=== PATIENT | female | born 1960 | race Caucasian/White ===

== ENCOUNTER → 2016-07-04 | Outpatient (REF) | payer OTHER ==
[~2016-07-04] MED LIST: ASPI81TA85 PO; GLYB5TAB5 PO; METF1000 PO
[2016-07-04 13:27] LABS: BASO % 0.5 % (0.0-1.0); EOS # 0.1 K/mm3 (0.0-0.50); EOS % 1.7 % (0.0-3.0); LARGE UNSTAINED CELL # 0.1 K/mm3 (0.0-0.4); LARGE UNSTAINED CELL % 1.4 % (0.0-4.0); LYMPH % 24.1 % (24.0-44.0); MEAN CORPUSCULAR HEMOGLOBIN 31.7 pg (27.0-33.0); MEAN CORPUSCULAR HGB CONC 32.6 g/dl (32.0-36.5); MEAN CORPUSCULAR VOLUME 97.3 fl (80.0-96.0); MONO # 0.6 K/mm3 (0.0-0.8); MONO % 7.5 % (0.0-5.0); NEUTROPHILS % 64.9 % (36.0-66.0); PLATELET COUNT, AUTOMATED 146 k/mm3 (150-450); RED CELL DISTRIBUTION WIDTH 12.7 % (11.5-14.5); WHITE BLOOD COUNT 7.7 K/mm3 (4.0-10.0)
[2016-07-04 13:53] LABS: ALBUMIN 3.4 GM/DL (3.2-5.2); ALBUMIN/GLOBULIN RATIO 1.13 (1.00-1.93); ALKALINE PHOSPHATASE 82 U/L (45-117); ALT/SGPT 23 U/L (12-78); ANION GAP 8 MEQ/L (8-16); AST/SGOT 10 U/L (15-37); BILIRUBIN,TOTAL 0.2 MG/DL (0.2-1.0); BLOOD UREA NITROGEN 19 MG/DL (7-18); CALCIUM LEVEL 8.2 MG/DL (8.5-10.1); CARBON DIOXIDE LEVEL 29 MEQ/L (21-32); CHLORIDE LEVEL 103 MEQ/L (98-107); CHOLESTEROL LEVEL 153 MG/DL (<200); CREATININE FOR GFR 0.77 MG/DL (0.55-1.02); FREE T4 1.05 NG/DL (0.76-1.46); GLOMERULAR FILTRATION RATE > 60.0 (>51); POTASSIUM SERUM 4.3 MEQ/L (3.5-5.1); SODIUM LEVEL 140 MEQ/L (136-145); TOTAL PROTEIN 6.4 GM/DL (6.4-8.2); TRIGLYCERIDES LEVEL 165 MG/DL (<150)
[2016-07-04 14:28] LABS: GLUCOSE, FASTING 407 MG/DL (70-105)
[2016-07-04 16:34] LABS: VITAMIN B12 LEVEL 767 PG/ML (247-911)
== END ==
LOC: M SFHCPLAZ 09:39
PROVIDERS: ATTEND Physician Assistant Medical
DX: Z72.0 Tobacco use (principal)

== ENCOUNTER → 2016-08-17 | Outpatient (REF) | payer OTHER ==
[2016-08-17 11:56] LABS: BASO % 0.6 % (0.0-1.0); EOS # 0.2 K/mm3 (0.0-0.50); EOS % 2.5 % (0.0-3.0); LARGE UNSTAINED CELL # 0.2 K/mm3 (0.0-0.4); LARGE UNSTAINED CELL % 2.7 % (0.0-4.0); LYMPH # 2.8 K/mm3 (1.5-4.5); LYMPH % 34.2 % (24.0-44.0); MEAN CORPUSCULAR HEMOGLOBIN 31.3 pg (27.0-33.0); MEAN CORPUSCULAR HGB CONC 32.6 g/dl (32.0-36.5); MEAN CORPUSCULAR VOLUME 96.1 fl (80.0-96.0); MONO # 0.5 K/mm3 (0.0-0.8); MONO % 6.9 % (0.0-5.0); NEUTROPHILS % 53.1 % (36.0-66.0); PLATELET COUNT, AUTOMATED 158 k/mm3 (150-450); RED CELL DISTRIBUTION WIDTH 12.7 % (11.5-14.5); WHITE BLOOD COUNT 7.5 K/mm3 (4.0-10.0)
[2016-08-17 12:48] LABS: ALBUMIN 3.5 GM/DL (3.2-5.2); ALBUMIN/GLOBULIN RATIO 1.09 (1.00-1.93); ALKALINE PHOSPHATASE 85 U/L (45-117); ALT/SGPT 19 U/L (12-78); ANION GAP 5 MEQ/L (8-16); AST/SGOT 12 U/L (15-37); BILIRUBIN,TOTAL 0.4 MG/DL (0.2-1.0); BLOOD UREA NITROGEN 20 MG/DL (7-18); CALCIUM LEVEL 8.9 MG/DL (8.5-10.1); CARBON DIOXIDE LEVEL 34 MEQ/L (21-32); CHLORIDE LEVEL 103 MEQ/L (98-107); CREATININE FOR GFR 0.67 MG/DL (0.55-1.02); GLOMERULAR FILTRATION RATE > 60.0 (>51); GLUCOSE, FASTING 170 MG/DL (70-105); POTASSIUM SERUM 4.7 MEQ/L (3.5-5.1); SODIUM LEVEL 142 MEQ/L (136-145); TOTAL PROTEIN 6.7 GM/DL (6.4-8.2)
== END ==
LOC: M SFHCPLAZ 09:37
PROVIDERS: ATTEND Physician Assistant Medical
DX: I10 Essential (primary) hypertension (principal); E11.8 Type 2 diabetes mellitus with unspecified complications; E55.9 Vitamin D deficiency, unspecified

== ENCOUNTER → 2016-11-21 | Outpatient (CLI) | payer OTHER ==
[2016-11-21 13:05] LABS: BASO % 0.6 % (0.0-1.0); EOS # 0.2 K/mm3 (0.0-0.50); EOS % 1.9 % (0.0-3.0); LARGE UNSTAINED CELL # 0.2 K/mm3 (0.0-0.4); LARGE UNSTAINED CELL % 1.9 % (0.0-4.0); LYMPH # 2.8 K/mm3 (1.5-4.5); LYMPH % 33.2 % (24.0-44.0); MEAN CORPUSCULAR HEMOGLOBIN 32.4 pg (27.0-33.0); MEAN CORPUSCULAR HGB CONC 33.4 g/dl (32.0-36.5); MONO # 0.6 K/mm3 (0.0-0.8); MONO % 7.2 % (0.0-5.0); NEUTROPHILS # 4.4 K/mm3 (1.8-7.7); NEUTROPHILS % 55.3 % (36.0-66.0); PLATELET COUNT, AUTOMATED 171 k/mm3 (150-450); RED CELL DISTRIBUTION WIDTH 12.7 % (11.5-14.5); WHITE BLOOD COUNT 7.9 K/mm3 (4.0-10.0)
[2016-11-21 13:37] LABS: ALBUMIN 3.6 GM/DL (3.2-5.2); ALBUMIN/GLOBULIN RATIO 1.06 (1.00-1.93); ALKALINE PHOSPHATASE 82 U/L (45-117); ALT/SGPT 25 U/L (12-78); ANION GAP 6 MEQ/L (8-16); AST/SGOT 15 U/L (15-37); BILIRUBIN,TOTAL 0.6 MG/DL (0.2-1.0); BLOOD UREA NITROGEN 19 MG/DL (7-18); CALCIUM LEVEL 9.1 MG/DL (8.5-10.1); CARBON DIOXIDE LEVEL 32 MEQ/L (21-32); CHLORIDE LEVEL 103 MEQ/L (98-107); CHOLESTEROL LEVEL 195 MG/DL (<200); CREATININE FOR GFR 0.74 MG/DL (0.55-1.02); GLOMERULAR FILTRATION RATE > 60.0 (>51); GLUCOSE, FASTING 224 MG/DL (70-105); POTASSIUM SERUM 4.4 MEQ/L (3.5-5.1); SODIUM LEVEL 141 MEQ/L (136-145); TRIGLYCERIDES LEVEL 101 MG/DL (<150)
== END ==
LOC: M WUC 09:49
PROVIDERS: ATTEND Physician Assistant Medical
DX: E11.69 Type 2 diabetes mellitus with other specified complication (principal); E55.9 Vitamin D deficiency, unspecified; I10 Essential (primary) hypertension

== ENCOUNTER → 2016-12-15 | Outpatient (REF) | payer OTHER | LOC: M SFHCPLAZ 10:52 | PROVIDERS: ATTEND Physician Assistant Medical | DX: E11.8 Type 2 diabetes mellitus with unspecified complications (principal) ==

== ENCOUNTER → 2017-03-28 | Outpatient (REF) | payer OTHER ==
[2017-03-28 13:52] LABS: ALBUMIN 3.7 GM/DL (3.2-5.2); ALBUMIN/GLOBULIN RATIO 1.03 (1.00-1.93); ALKALINE PHOSPHATASE 85 U/L (45-117); ALT/SGPT 19 U/L (12-78); ANION GAP 7 MEQ/L (8-16); AST/SGOT 7 U/L (7-37); BILIRUBIN,TOTAL 0.5 MG/DL (0.2-1.0); BLOOD UREA NITROGEN 15 MG/DL (7-18); CALCIUM LEVEL 9.3 MG/DL (8.5-10.1); CARBON DIOXIDE LEVEL 30 MEQ/L (21-32); CHLORIDE LEVEL 102 MEQ/L (98-107); CHOLESTEROL LEVEL 208 MG/DL (<200); CREATININE FOR GFR 0.73 MG/DL (0.55-1.02); GLOMERULAR FILTRATION RATE > 60.0 (>51); GLUCOSE, FASTING 305 MG/DL (70-105); POTASSIUM SERUM 4.5 MEQ/L (3.5-5.1); SODIUM LEVEL 139 MEQ/L (136-145); TOTAL PROTEIN 7.3 GM/DL (6.4-8.2); TRIGLYCERIDES LEVEL 130 MG/DL (<150)
== END ==
LOC: M SFHCPLAZ 10:57
PROVIDERS: ATTEND Physician Assistant Medical
DX: E11.8 Type 2 diabetes mellitus with unspecified complications (principal); E55.9 Vitamin D deficiency, unspecified; Z13.220 Encounter for screening for lipoid disorders

== ENCOUNTER → 2017-05-23 | Outpatient (CLI) | payer OTHER | LOC: M LRY 14:12 | DX: M79.671 Pain in right foot (principal); M25.561 Pain in right knee; M54.2 Cervicalgia; M47.816 Spondylosis without myelopathy or radiculopathy, lumbar region; M54.6 Pain in thoracic spine | CPT/HCPCS: 72052 ==

== ENCOUNTER → 2017-08-22 | Outpatient (REF) | payer OTHER ==
[2017-08-22 12:21] LABS: PTH INTACT 50.3 PG/ML (18.5-88.0); TOTAL 25(OH) VITAMIN D 35.1 NG/ML (30.0-100.0)
[2017-08-22 12:54] LABS: ALBUMIN 3.9 GM/DL (3.2-5.2); ALBUMIN/GLOBULIN RATIO 1.18 (1.00-1.93); ALKALINE PHOSPHATASE 78 U/L (45-117); ALT/SGPT 17 U/L (12-78); ANION GAP 9 MEQ/L (8-16); AST/SGOT 12 U/L (7-37); BILIRUBIN,TOTAL 0.5 MG/DL (0.2-1.0); BLOOD UREA NITROGEN 18 MG/DL (7-18); CALCIUM LEVEL 9.3 MG/DL (8.5-10.1); CARBON DIOXIDE LEVEL 28 MEQ/L (21-32); CHLORIDE LEVEL 103 MEQ/L (98-107); CHOLESTEROL LEVEL 205 MG/DL (<200); CHOLESTEROL RISK RATIO 3.306 (<5); CPK CREATINE PHOSPHOKINASE 37 U/L (26-192); CREATININE FOR GFR 0.69 MG/DL (0.55-1.30); GLOMERULAR FILTRATION RATE > 60.0 (>51); GLUCOSE, FASTING 199 MG/DL (70-100); HDL CHOLESTEROL 62 MG/DL (>40); LDL CHOLESTEROL 123.8 MG/DL (<100); NON-HDL-C 143 MG/DL; POTASSIUM SERUM 4.4 MEQ/L (3.5-5.1); SODIUM LEVEL 140 MEQ/L (136-145); TOTAL PROTEIN 7.2 GM/DL (6.4-8.2); TRIGLYCERIDES LEVEL 96 MG/DL (<150)
[2017-08-22 14:42] LABS: ESTIMATED AVERAGE GLUCOSE 214 MG/DL (60-110); HEMOGLOBIN A1c 9.1 %
== END ==
LOC: M SFHCPLAZ 09:37
DX: Z13.220 Encounter for screening for lipoid disorders (principal); E55.9 Vitamin D deficiency, unspecified; E11.8 Type 2 diabetes mellitus with unspecified complications

== ENCOUNTER → 2017-12-04 | Outpatient (REF) | payer OTHER ==
[2017-12-04 13:31] LABS: ESTIMATED AVERAGE GLUCOSE 200 MG/DL (60-110); HEMOGLOBIN A1c 8.6 %
[2017-12-04 13:35] LABS: PTH INTACT 41.4 PG/ML (18.5-88.0)
== END ==
LOC: M SFHCPLAZ 11:22
DX: E55.9 Vitamin D deficiency, unspecified (principal); E11.8 Type 2 diabetes mellitus with unspecified complications
CPT/HCPCS: 83036

== ENCOUNTER → 2017-12-13 | Outpatient (CLI) | payer OTHER | LOC: M WUC 17:40 | DX: J20.9 Acute bronchitis, unspecified (principal); R06.2 Wheezing; Z72.0 Tobacco use | CPT/HCPCS: 71046 ==

== ENCOUNTER → 2018-01-10 | Outpatient (CLI) | payer OTHER | LOC: M WHC 09:45 | DX: Z12.31 Encounter for screening mammogram for malignant neoplasm of breast (principal) | CPT/HCPCS: 77067 ==

== ENCOUNTER 2018-02-05 16:04 | Emergency (ER) | payer OTHER ==
[2018-02-05] MEDS: NORCO, ANEXSIA 5/325MG TABLET (HYDROcodone/ACETAMINOPHEN) PO (18:08)
== END 2018-02-05 18:30 | disposition home or self-care (01) ==
LOC: M ED 16:04
DX: L02.214 Cutaneous abscess of groin (principal); E11.9 Type 2 diabetes mellitus without complications; I10 Essential (primary) hypertension; E78.5 Hyperlipidemia, unspecified; F17.210 Nicotine dependence, cigarettes, uncomplicated; Z87.42 Personal history of other diseases of the female genital tract; Z88.5 Allergy status to narcotic agent; Z88.8 Allergy status to other drugs, medicaments and biological substances; Z79.84 Long term (current) use of oral hypoglycemic drugs; Z79.899 Other long term (current) drug therapy; Z79.82 Long term (current) use of aspirin
CPT/HCPCS: 10060

== ENCOUNTER → 2018-02-20 | Outpatient (REF) | payer OTHER ==
[2018-02-20 12:37] LABS: BASO # 0.1 10^3/uL (0.0-0.2); BASO % 0.7 % (0.0-1.0); EOS # 0.2 10^3/uL (0.0-0.50); EOS % 1.9 % (0.0-3.0); HEMATOCRIT 45.8 % (36.0-47.0); HEMOGLOBIN 15.1 g/dl (12.0-15.5); IMMATURE GRANULOCYTE % 0.6 % (0-3.0); LYMPH # 3.1 10^3/uL (1.5-4.5); LYMPH % 31.3 % (24.0-44.0); MEAN CORPUSCULAR HEMOGLOBIN 32.1 pg (27.0-33.0); MEAN CORPUSCULAR VOLUME 97.2 fl (80.0-96.0); MONO % 9.8 % (0.0-5.0); NEUTROPHILS # 5.6 10^3/uL (1.8-7.7); NEUTROPHILS % 55.7 % (36.0-66.0); PLATELET COUNT, AUTOMATED 200 10^3/uL (150-450); RED BLOOD COUNT 4.71 10^6/uL (4.00-5.40); RED CELL DISTRIBUTION WIDTH 12.4 % (11.5-14.5)
[2018-02-20 13:08] LABS: ERYTHROCYTE SEDIMENTATION RATE 8 mm/hr (0-30)
[2018-02-20 20:11] LABS: ALBUMIN 3.6 GM/DL (3.2-5.2); ALBUMIN/GLOBULIN RATIO 1.09 (1.00-1.93); ALKALINE PHOSPHATASE 77 U/L (45-117); ALT/SGPT 20 U/L (12-78); ANION GAP 11 MEQ/L (8-16); AST/SGOT 12 U/L (7-37); BILIRUBIN,TOTAL 0.4 MG/DL (0.2-1.0); BLOOD UREA NITROGEN 24 MG/DL (7-18); C REACTIVE PROTEIN QUANTITATIV < 0.30 MG/DL (0.00-0.30); CALCIUM LEVEL 9.1 MG/DL (8.5-10.1); CARBON DIOXIDE LEVEL 26 MEQ/L (21-32); CHLORIDE LEVEL 102 MEQ/L (98-107); CREATININE FOR GFR 0.94 MG/DL (0.55-1.30); GLOMERULAR FILTRATION RATE > 60.0 (>51); GLUCOSE, FASTING 247 MG/DL (70-100); POTASSIUM SERUM 4.9 MEQ/L (3.5-5.1); SODIUM LEVEL 139 MEQ/L (136-145); TOTAL PROTEIN 6.9 GM/DL (6.4-8.2)
[2018-02-20 23:59] LABS: ESTIMATED AVERAGE GLUCOSE 200 MG/DL (60-110); HEMOGLOBIN A1c 8.6 %
== END ==
LOC: M SFHCPLAZ 10:51
DX: E11.8 Type 2 diabetes mellitus with unspecified complications (principal); L02.91 Cutaneous abscess, unspecified
CPT/HCPCS: 80053

== ENCOUNTER 2018-05-03 20:51 | Emergency (ER) | payer OTHER ==
[~2018-05-03] VITALS: Ht 165.1 cm; Wt 90.9 kg
[~2018-05-03 20:51] MED LIST changes: +BACT800T5 PO; +NORCOTAB PO
[2018-05-03] MEDS ORDERED: LISI-538 (21:07)
[2018-05-03] MEDS ORDERED: AMLO5TAB6 (21:07)
[2018-05-03] MEDS ORDERED: EZET10TA (21:07)
[2018-05-03] MEDS ORDERED: IPRATROPIUM 0.5MG/ALBUTEROL 2.5MG INH SOL UD 3ML (DUONEB)(J7620) NEB PRN (21:15)
[2018-05-03] MEDS ORDERED: MORPHINE 2 MG/ML 1ML SYRINGE (J2270) IV ONE (21:15)
[2018-05-03] MEDS ORDERED: GI COCKTAIL 50ML BTL(HYOSCYAMINE/MAALOX/LIDOCAINE VISCOUS)(1:3:1) PO ONE (21:15)
[2018-05-03 21:21] LABS: BASO # 0.1 10^3/uL (0.0-0.2); BASO % 0.5 % (0.0-1.0); EOS # 0.2 10^3/uL (0.0-0.50); EOS % 2.2 % (0.0-3.0); HEMATOCRIT 44.3 % (36.0-47.0); HEMOGLOBIN 15.1 g/dl (12.0-15.5); LYMPH # 2.4 10^3/uL (1.5-4.5); LYMPH % 25.2 % (24.0-44.0); MEAN CORPUSCULAR HEMOGLOBIN 31.6 pg (27.0-33.0); MEAN CORPUSCULAR HGB CONC 34.1 g/dl (32.0-36.5); MEAN CORPUSCULAR VOLUME 92.7 fl (80.0-96.0); MONO # 1.1 10^3/uL (0.0-0.8); NEUTROPHILS # 5.7 10^3/uL (1.8-7.7); NEUTROPHILS % 59.5 % (36.0-66.0); PLATELET COUNT, AUTOMATED 183 10^3/uL (150-450); RED BLOOD COUNT 4.78 10^6/uL (4.00-5.40); WHITE BLOOD COUNT 9.5 10^3/uL (4.0-10.0)
[2018-05-03 22:15] LABS: ALT/SGPT 21 U/L (12-78); BILIRUBIN,DIRECT < 0.1 MG/DL (0.0-0.2); BILIRUBIN,TOTAL 0.4 MG/DL (0.2-1.0); BLOOD UREA NITROGEN 21 MG/DL (7-18); CALCIUM LEVEL 8.5 MG/DL (8.5-10.1); CARBON DIOXIDE LEVEL 29 MEQ/L (21-32); CHLORIDE LEVEL 101 MEQ/L (98-107); CPK CREATINE PHOSPHOKINASE 76 U/L (26-192); CREATININE FOR GFR 0.75 MG/DL (0.55-1.30); GLOMERULAR FILTRATION RATE > 60.0 (>51); GLUCOSE, FASTING 342 MG/DL (70-100); LIPASE 4960 U/L (73-393); MB/CK RELATIVE INDEX 2.63 (< OR =4); POTASSIUM SERUM 3.8 MEQ/L (3.5-5.1); SODIUM LEVEL 136 MEQ/L (136-145); TOTAL PROTEIN 6.5 GM/DL (6.4-8.2); TROPONIN I < 0.02 NG/ML (< 0.10)
--- NOTE | 2018-05-03 22:45 | REP ---
Clinical: Chest pain and cough . Comparison: 12/13/2017 . Findings: The mediastinum and cardiac silhouette are stable and within normal limits for portable technique. The lung winston are clear without acute consolidation, effusion, or pneumothorax. Skeletal structures are intact. Impression: No acute cardiopulmonary process appreciated. Electronically Signed by Tyrell Contreras MD 05/03/2018 10:37 P
--- NOTE | 2018-05-03 23:31 | REPVR ---
EXAM: CT Abdomen and Pelvis Without Contrast EXAM DATE/TIME: 05/03/2018 10:27 PM CLINICAL HISTORY: 57 years old, female; Pain; Abdominal pain; Generalized; Additional info: Abdominal pain and elevated lipase TECHNIQUE: Axial computed tomography images of the abdomen and pelvis without contrast. All CT scans at this facility use at least one of these dose optimization techniques: automated exposure control; mA and/or kV adjustment per patient size (includes targeted exams where dose is matched to clinical indication); or iterative reconstruction. Coronal and sagittal reformatted images were created and reviewed. COMPARISON: CT ABD PELVIS WITH CONTRAST 10/17/2014 2:52 PM FINDINGS: Lower thorax: Moderate coronary artery calcification. ABDOMEN: Liver: Normal. No mass. Gallbladder and bile ducts: Status post cholecystectomy. No biliary ductal dilatation. Pancreas: Normal. No ductal dilation. Spleen: Normal. No splenomegaly. Adrenals: Normal. No mass. Kidneys and ureters: Normal. No hydronephrosis. Stomach and bowel: No obstruction. No mucosal thickening. Negative for colonic diverticulitis. Copious stool throughout the colon. Diverticulosis of the sigmoid colon and left colon. No evidence of diverticulitis. Appendix: Appendix is normal. PELVIS: Bladder: Unremarkable as visualized. Reproductive: Uterus is normal. ABDOMEN and PELVIS: Intraperitoneal space: Normal. No free air. No significant fluid collection. Bones/joints: Moderate degenerative spine. No acute fracture. Soft tissues: Unremarkable. Vasculature: Moderate calcified atherosclerotic disease. No aortic aneurysm. Lymph nodes: Normal. No enlarged lymph nodes. IMPRESSION: Pancreas is unremarkable. Status post cholecystectomy. Colonic diverticulosis without diverticulitis. Additional findings as described. Electronically signed by: Ailyn Marion On 05/03/2018 23:31:26 PM
[2018-05-03 23:36] VITALS: BP 142/65
[2018-05-03] MEDS ORDERED: OMEP10CASR PO (23:41)
--- NOTE | 2018-05-04 09:24 | ECGEPIP ---
Stationary ECG Study [facility] - ED Test Date: 2018-05-03 Pat Name: ELIJAH ESTRADA Department: Room: - Gender: F Specialist Physician: : 1960 Requested By: ELIE Gan Order Number: [id number] Reading MD: Sharri Hodgson Measurements Intervals [place] Rate: 97 P: 58 SD: 257 QRS: 22 QRSD: 120 T: 52 QT: 446 QTc: 568 Interpretive Statements SINUS RHYTHM WITH FIRST DEGREE AV BLOCK POSSIBLE LATERAL MYOCARDIAL INFARCTION, OF INDETERMINATE AGE INFERIOR MYOCARDIAL INFARCTION, OF INDETERMINATE AGE SIMILAR 10/17/14 Electronically Signed On 05-04-2018 9:24:05 EST by Sharri Hodgson
== END 2018-05-03 23:49 | disposition home or self-care (01) ==
LOC: EDBD 20:51 → M ED 20:51
DX: K21.9 Gastro-esophageal reflux disease without esophagitis (principal); I44.0 Atrioventricular block, first degree; I25.10 Atherosclerotic heart disease of native coronary artery without angina pectoris; I25.2 Old myocardial infarction; E11.9 Type 2 diabetes mellitus without complications; I10 Essential (primary) hypertension; E78.5 Hyperlipidemia, unspecified; Z95.5 Presence of coronary angioplasty implant and graft; Z72.0 Tobacco use; K57.32 Diverticulitis of large intestine without perforation or abscess without bleeding; Z79.82 Long term (current) use of aspirin; Z79.84 Long term (current) use of oral hypoglycemic drugs; Z79.899 Other long term (current) drug therapy; Z88.8 Allergy status to other drugs, medicaments and biological substances; Z88.5 Allergy status to narcotic agent
CPT/HCPCS: 71045; 74176; 80048; 80076; 82550; 82553; 83690; 85025; 93005; 93041; 94640; 94760; 96374; 99285; J2270

== ENCOUNTER → 2018-05-07 | Outpatient (REF) | payer OTHER ==
[~2018-05-07] MED LIST changes: +AMLO5TAB6; +EZET10TA; +LISI-538; +OMEP10CASR PO
[2018-05-07 13:18] LABS: ALBUMIN 3.7 GM/DL (3.2-5.2); ALT/SGPT 24 U/L (12-78); AMYLASE 63 U/L (25-115); BILIRUBIN,TOTAL 0.5 MG/DL (0.2-1.0); BLOOD UREA NITROGEN 21 MG/DL (7-18); CALCIUM LEVEL 9.1 MG/DL (8.5-10.1); CARBON DIOXIDE LEVEL 25 MEQ/L (21-32); CHLORIDE LEVEL 102 MEQ/L (98-107); CHOLESTEROL LEVEL 162 MG/DL (<200); CREATININE FOR GFR 0.77 MG/DL (0.55-1.30); GLOMERULAR FILTRATION RATE > 60.0 (>51); GLUCOSE, FASTING 311 MG/DL (70-100); HDL CHOLESTEROL 60 MG/DL (>40); LDL CHOLESTEROL 79 MG/DL (<100); LIPASE 572 U/L (73-393); NON-HDL-C 102 MG/DL; POTASSIUM SERUM 4.6 MEQ/L (3.5-5.1); SODIUM LEVEL 135 MEQ/L (136-145); TRIGLYCERIDES LEVEL 116 MG/DL (<150)
[2018-05-07 13:20] LABS: BASO # 0.1 10^3/uL (0.0-0.2); BASO % 0.8 % (0.0-1.0); EOS # 0.1 10^3/uL (0.0-0.50); EOS % 1.2 % (0.0-3.0); HEMATOCRIT 53.1 % (36.0-47.0); HEMOGLOBIN 17.8 g/dl (12.0-15.5); LYMPH # 2.3 10^3/uL (1.5-4.5); LYMPH % 27.4 % (24.0-44.0); MEAN CORPUSCULAR HEMOGLOBIN 31.2 pg (27.0-33.0); MEAN CORPUSCULAR HGB CONC 33.5 g/dl (32.0-36.5); MEAN CORPUSCULAR VOLUME 93.2 fl (80.0-96.0); MONO # 0.8 10^3/uL (0.0-0.8); MONO % 9.3 % (0.0-5.0); NEUTROPHILS # 5.1 10^3/uL (1.8-7.7); NEUTROPHILS % 60.7 % (36.0-66.0); PLATELET COUNT, AUTOMATED 209 10^3/uL (150-450); WHITE BLOOD COUNT 8.4 10^3/uL (4.0-10.0)
[2018-05-07 14:05] LABS: HEMOGLOBIN A1c 10.4 %
== END ==
LOC: M SFHCPLAZ 11:47
PROVIDERS: ATTEND Physician Assistant Medical
DX: E11.8 Type 2 diabetes mellitus with unspecified complications (principal); K85.90 Acute pancreatitis without necrosis or infection, unspecified; E78.5 Hyperlipidemia, unspecified

== ENCOUNTER 2018-07-23 06:10 | Emergency (ER) | payer OTHER ==
[~2018-07-23] VITALS: Ht 165.1 cm; Wt 90.9 kg
[~2018-07-23 06:10] MED LIST changes: +HYDR-3715 PO; -NORCOTAB PO
[2018-07-23] MEDS ORDERED: EZET10TA PO (06:21)
[2018-07-23 07:23] LABS: BASO # 0.1 10^3/uL (0.0-0.2); BASO % 0.5 % (0.0-1.0); EOS # 0.1 10^3/uL (0.0-0.50); EOS % 1.2 % (0.0-3.0); HEMATOCRIT 48.8 % (36.0-47.0); HEMOGLOBIN 15.7 g/dl (12.0-15.5); LYMPH # 1.8 10^3/uL (1.5-4.5); LYMPH % 18.1 % (24.0-44.0); MEAN CORPUSCULAR HEMOGLOBIN 31.3 pg (27.0-33.0); MEAN CORPUSCULAR HGB CONC 32.2 g/dl (32.0-36.5); MEAN CORPUSCULAR VOLUME 97.4 fl (80.0-96.0); MONO # 0.7 10^3/uL (0.0-0.8); MONO % 6.8 % (0.0-5.0); NEUTROPHILS # 7.4 10^3/uL (1.8-7.7); NEUTROPHILS % 72.8 % (36.0-66.0); PLATELET COUNT, AUTOMATED 161 10^3/uL (150-450); RED BLOOD COUNT 5.01 10^6/uL (4.00-5.40); WHITE BLOOD COUNT 10.1 10^3/uL (4.0-10.0)
[2018-07-23 07:57] LABS: ALBUMIN 3.3 GM/DL (3.2-5.2); ALT/SGPT 18 U/L (12-78); BILIRUBIN,DIRECT < 0.1 MG/DL (0.0-0.2); BILIRUBIN,TOTAL 0.3 MG/DL (0.2-1.0); BLOOD UREA NITROGEN 20 MG/DL (7-18); CALCIUM LEVEL 8.3 MG/DL (8.5-10.1); CARBON DIOXIDE LEVEL 30 MEQ/L (21-32); CHLORIDE LEVEL 107 MEQ/L (98-107); CREATININE FOR GFR 0.68 MG/DL (0.55-1.30); GLOMERULAR FILTRATION RATE > 60.0 (>51); GLUCOSE, FASTING 189 MG/DL (70-100); POTASSIUM SERUM 4.8 MEQ/L (3.5-5.1); SODIUM LEVEL 141 MEQ/L (136-145); TOTAL PROTEIN 6.4 GM/DL (6.4-8.2)
[2018-07-23] MEDS ORDERED: KETOROLAC 30 MG/ML VIAL (J1885) IV ONE (08:00)
--- NOTE | 2018-07-23 08:15 | REP ---
Duplex extremity venous ultrasound: Bilateral lower extremities. History: Rule out DVT. Findings: The deep veins are anechoic and fully compressible from the groin to the popliteal fossa in the left and right lower extremity. Color flow imaging is homogeneous. Spectral Doppler interrogation demonstrates intact respiratory variation in flow and normal manual augmentation of flow. There is no evidence of deep vein thrombosis. Impression: Negative bilateral lower extremity duplex venous ultrasound. No evidence of deep vein thrombosis. Electronically Signed by Carlos Shepherd MD 07/23/2018 08:07 A
[2018-07-23 09:00] VITALS: BP 123/64
[2018-07-23] MEDS ORDERED: NAPR-885 PO (09:12)
== END 2018-07-23 09:27 | disposition home or self-care (01) ==
LOC: M ED 06:10
DX: M79.604 Pain in right leg (principal); Z86.718 Personal history of other venous thrombosis and embolism; Z95.820 Peripheral vascular angioplasty status with implants and grafts; E11.9 Type 2 diabetes mellitus without complications; I11.9 Hypertensive heart disease without heart failure; I25.10 Atherosclerotic heart disease of native coronary artery without angina pectoris; E78.5 Hyperlipidemia, unspecified; J44.9 Chronic obstructive pulmonary disease, unspecified; Z95.5 Presence of coronary angioplasty implant and graft; F17.210 Nicotine dependence, cigarettes, uncomplicated; Z88.8 Allergy status to other drugs, medicaments and biological substances; Z88.5 Allergy status to narcotic agent; Z79.899 Other long term (current) drug therapy; Z79.84 Long term (current) use of oral hypoglycemic drugs; Z79.82 Long term (current) use of aspirin
CPT/HCPCS: 80048; 80076; 85025; 93041; 93971; 94760; 96374; 99284; J1885

== ENCOUNTER → 2018-09-05 | Outpatient (REF) | payer OTHER ==
[~2018-09-05] MED LIST changes: +EZET10TA PO; +NAPR-885 PO
[2018-09-05 13:03] LABS: BASO % 0.4 % (0.0-1.0); EOS # 0.2 10^3/uL (0.0-0.50); HEMATOCRIT 51.5 % (36.0-47.0); HEMOGLOBIN 16.9 g/dl (12.0-15.5); LYMPH # 2.4 10^3/uL (1.5-4.5); LYMPH % 31.7 % (24.0-44.0); MEAN CORPUSCULAR HEMOGLOBIN 31.4 pg (27.0-33.0); MEAN CORPUSCULAR HGB CONC 32.8 g/dl (32.0-36.5); MEAN CORPUSCULAR VOLUME 95.7 fl (80.0-96.0); MONO # 0.7 10^3/uL (0.0-0.8); NEUTROPHILS # 4.3 10^3/uL (1.8-7.7); NEUTROPHILS % 56.4 % (36.0-66.0); PLATELET COUNT, AUTOMATED 179 10^3/uL (150-450); RED BLOOD COUNT 5.38 10^6/uL (4.00-5.40); WHITE BLOOD COUNT 7.6 10^3/uL (4.0-10.0)
[2018-09-05 13:53] LABS: ALBUMIN 3.8 GM/DL (3.2-5.2); ALT/SGPT 26 U/L (12-78); BILIRUBIN,TOTAL 0.3 MG/DL (0.2-1.0); BLOOD UREA NITROGEN 20 MG/DL (7-18); CALCIUM LEVEL 8.8 MG/DL (8.5-10.1); CARBON DIOXIDE LEVEL 30 MEQ/L (21-32); CHLORIDE LEVEL 105 MEQ/L (98-107); CREATININE FOR GFR 0.74 MG/DL (0.55-1.30); GLOMERULAR FILTRATION RATE > 60.0 (>51); GLUCOSE, FASTING 133 MG/DL (70-100); LIPASE 214 U/L (73-393); POTASSIUM SERUM 4.4 MEQ/L (3.5-5.1); SODIUM LEVEL 138 MEQ/L (136-145); TOTAL PROTEIN 6.8 GM/DL (6.4-8.2)
[2018-09-05 17:20] LABS: HEMOGLOBIN A1c 7.7 %
== END ==
LOC: M SFHCPLAZ 09:11
PROVIDERS: ATTEND Physician Assistant Medical
DX: E11.8 Type 2 diabetes mellitus with unspecified complications (principal); K85.90 Acute pancreatitis without necrosis or infection, unspecified; I10 Essential (primary) hypertension

== ENCOUNTER 2018-12-06 07:38 | Day surgery (SDC) | payer OTHER ==
[~2018-12-06] VITALS: Ht 165.1 cm; Wt 98.9 kg
[~2018-12-06 07:38] MED LIST changes: -AMLO5TAB6; +AMLO5TAB6 PO; +ASPI81TA26 PO; +BASA100I SC; -EZET10TA; -EZET10TA PO; +EZET10TA21; +EZET10TA21 PO; +GLIP10TA6 PO; +LIDOCAINE 2% INJ 100 MG/5 ML SDV (FOR ANES.) As Ordered ONE; +LISI40TA; +METF10004 PO; +NS 1,000 ML IV ONE; +PROPOFOL 200 MG/20 ML VIAL As Ordered ONE; +VENL150C43; +VENL75CA47 PO
--- NOTE | 2018-12-06 09:11 | ROOR ---
Patient Name: Malinda Parra Procedure Date: 12/06/2018 8:41 AM Date of : 1960 Age: 58 Room: [facility] Gender: Female Note Status: Finalized Procedure: Colonoscopy Indications: Change in bowel habits Providers: Matt DE LUNA MD Referring MD: Lauren ALEJANDRE Requesting Provider: Medicines: Monitored Anesthesia Care Complications: No immediate complications. Procedure: Pre-Anesthesia Assessment: - The heart rate, respiratory rate, oxygen saturations, blood pressure, adequacy of pulmonary ventilation, and response to care were monitored throughout the procedure. The Colonoscope was introduced through the anus and advanced to the terminal ileum, with identification of the appendiceal orifice and IC valve. The colonoscopy was performed without difficulty. The patient tolerated the procedure well. The quality of the bowel preparation was fair. Findings: The perianal and digital rectal examinations were normal. Three sessile polyps were found in the sigmoid colon. The polyps were 3 to 5 mm in size. These polyps were removed with a cold snare. Resection and retrieval were complete. Multiple medium-mouthed diverticula were found in the sigmoid colon. There was evidence of diverticular spasm. The exam was otherwise without abnormality. Impression: - Preparation of the colon was fair. - Three 3 to 5 mm polyps in the sigmoid colon, removed with a cold snare. Resected and retrieved. - Moderate diverticulosis in the sigmoid colon. - Moderate internal hemorrhoids. - The examination was otherwise normal. Recommendation: - Repeat colonoscopy in 2 years because the bowel preparation was fair/suboptimal. - Use fiber, for example Citrucel, Fibercon, Konsyl or Metamucil. Matt De Luna MD Matt DE LUNA MD 12/06/2018 9:11:20 AM Electronically signed by Matt DE LUNA MD Number of Addenda: 0 Note Initiated On: 12/06/2018 8:41 AM Estimated Blood Loss: Estimated blood loss: none.
[2018-12-06 09:30] VITALS: BP 126/73
== END 2018-12-06 09:36 | disposition home or self-care (01) ==
LOC: M OPP 07:38
PROVIDERS: ATTEND Internal Medicine Gastroenterology
DX: R19.4 Change in bowel habit (principal); D12.5 Benign neoplasm of sigmoid colon; K57.30 Diverticulosis of large intestine without perforation or abscess without bleeding; K64.8 Other hemorrhoids; Z95.5 Presence of coronary angioplasty implant and graft; R00.8 Other abnormalities of heart beat; I25.10 Atherosclerotic heart disease of native coronary artery without angina pectoris; I25.2 Old myocardial infarction; I10 Essential (primary) hypertension; E78.5 Hyperlipidemia, unspecified; E11.9 Type 2 diabetes mellitus without complications; Z78.0 Asymptomatic menopausal state; F17.200 Nicotine dependence, unspecified, uncomplicated; Z88.8 Allergy status to other drugs, medicaments and biological substances; Z88.5 Allergy status to narcotic agent; Z79.82 Long term (current) use of aspirin; Z79.899 Other long term (current) drug therapy; Z79.4 Long term (current) use of insulin

== ENCOUNTER → 2018-12-18 | Outpatient (REF) | payer OTHER ==
[~2018-12-18] MED LIST changes: -LIDOCAINE 2% INJ 100 MG/5 ML SDV (FOR ANES.) As Ordered ONE; -NS 1,000 ML IV ONE; -PROPOFOL 200 MG/20 ML VIAL As Ordered ONE
[2018-12-18 17:16] LABS: BASO # 0.1 10^3/uL (0.0-0.2); BASO % 0.6 % (0.0-1.0); EOS # 0.2 10^3/uL (0.0-0.50); HEMATOCRIT 47.9 % (36.0-47.0); HEMOGLOBIN 15.9 g/dl (12.0-15.5); LYMPH # 1.9 10^3/uL (1.5-4.5); LYMPH % 24.3 % (24.0-44.0); MEAN CORPUSCULAR HEMOGLOBIN 31.7 pg (27.0-33.0); MEAN CORPUSCULAR HGB CONC 33.2 g/dl (32.0-36.5); MEAN CORPUSCULAR VOLUME 95.4 fl (80.0-96.0); MONO % 12.8 % (0.0-5.0); NEUTROPHILS # 4.7 10^3/uL (1.8-7.7); NEUTROPHILS % 59.8 % (36.0-66.0); PLATELET COUNT, AUTOMATED 169 10^3/uL (150-450); RED BLOOD COUNT 5.02 10^6/uL (4.00-5.40); WHITE BLOOD COUNT 7.8 10^3/uL (4.0-10.0)
[2018-12-18 17:34] LABS: INR 0.96; PROTHROMBIN TIME 12.5 SECONDS (11.8-14.0)
[2018-12-18 17:35] LABS: PARTIAL THROMBOPLASTIN TIME 26.9 SECONDS (25.0-38.4)
[2018-12-18 17:38] LABS: HEMOGLOBIN A1c 8.4 %
[2018-12-18 18:42] LABS: ALBUMIN 3.4 GM/DL (3.2-5.2); ALT/SGPT 19 U/L (12-78); BILIRUBIN,TOTAL 0.2 MG/DL (0.2-1.0); BLOOD UREA NITROGEN 25 MG/DL (7-18); CALCIUM LEVEL 8.7 MG/DL (8.5-10.1); CARBON DIOXIDE LEVEL 33 MEQ/L (21-32); CHLORIDE LEVEL 102 MEQ/L (98-107); CREATININE FOR GFR 0.91 MG/DL (0.55-1.30); GLOMERULAR FILTRATION RATE > 60.0 (>51); GLUCOSE, FASTING 460 MG/DL (70-100); POTASSIUM SERUM 4.6 MEQ/L (3.5-5.1); SODIUM LEVEL 139 MEQ/L (136-145); TOTAL PROTEIN 6.3 GM/DL (6.4-8.2)
== END ==
LOC: M SFHCPLAZ 15:18
PROVIDERS: ATTEND Physician Assistant Medical
DX: Z01.818 Encounter for other preprocedural examination (principal); E11.8 Type 2 diabetes mellitus with unspecified complications; I10 Essential (primary) hypertension

== ENCOUNTER → 2018-12-20 | Outpatient (CLI) | payer OTHER ==
--- NOTE | 2018-12-20 11:03 | REP ---
Bilateral lower extremity arterial Doppler ultrasound: History: Chronic bilateral lower extremity pain. The patient provides history of prior bilateral stents although she is uncertain of where the would be located. Findings: Severe plaquing is observed bilaterally. The right superficial femoral artery is occluded proximally with distal reread constitution. There is monophasic wave form morphology throughout the right lower extremity. The left proximal superficial femoral artery appears to contain a stent. The proximal to mid segment of the left superficial femoral artery is occluded with collateral reconstitution. The posterior tibial artery is occluded distally on the left. Monophasic waveforms are noted throughout the left lower extremity as well. Ankle brachial indices are measured at 0.8 on the right and 0.8 on the left. Right lower extremity arterial Doppler velocity chart: CF A 73 cm/S Profunda 90 Proximal SFA occluded Mid SFA 56 Distal SFA 39 Popliteal 33 Proximal AT A 22 Tibioperoneal trunk 33 Proximal DEBUG TECHNICIAN 38 Distal DEBUG TECHNICIAN 38 Distal AT A 50 Left lower extremity arterial Doppler velocity chart: CF A 122 cm/S Profunda 56 Proximal SFA occluded Mid SFA occluded Distal SFA 35 Popliteal 28 Proximal AT A 18 Tibioperoneal trunk 29 Proximal DEBUG TECHNICIAN 19 Distal DEBUG TECHNICIAN occluded Distal AT A 35 Electronically Signed by Carlos Shepherd MD 12/20/2018 10:54 A
== END ==
LOC: M RAD 08:44
PROVIDERS: ATTEND Physician Assistant Medical
DX: E11.8 Type 2 diabetes mellitus with unspecified complications (principal); I74.3 Embolism and thrombosis of arteries of the lower extremities

== ENCOUNTER → 2019-02-06 | Outpatient (REF) | payer OTHER ==
[2019-02-06 13:38] LABS: HEMOGLOBIN A1c 8.3 %
[2019-02-06 14:07] LABS: ALBUMIN 3.6 GM/DL (3.2-5.2); ALT/SGPT 22 U/L (12-78); BILIRUBIN,TOTAL 0.8 MG/DL (0.2-1.0); BLOOD UREA NITROGEN 24 MG/DL (7-18); CALCIUM LEVEL 8.9 MG/DL (8.5-10.1); CARBON DIOXIDE LEVEL 31 MEQ/L (21-32); CHLORIDE LEVEL 101 MEQ/L (98-107); GLOMERULAR FILTRATION RATE > 60.0 (>51); GLUCOSE, FASTING 334 MG/DL (70-100); POTASSIUM SERUM 4.5 MEQ/L (3.5-5.1); SODIUM LEVEL 139 MEQ/L (136-145); TOTAL PROTEIN 6.6 GM/DL (6.4-8.2); VITAMIN B12 LEVEL 553 PG/ML (247-911)
== END ==
LOC: M SFHCPLAZ 11:45
PROVIDERS: ATTEND Physician Assistant Medical
DX: E11.8 Type 2 diabetes mellitus with unspecified complications (principal)

== ENCOUNTER 2019-05-21 10:42 | Emergency (ER) | payer OTHER ==
[~2019-05-21] VITALS: Ht 162.6 cm; Wt 102.4 kg
[2019-05-21] MEDS ORDERED: ADME100I SC (11:03)
[2019-05-21] MEDS ORDERED: VENL1TAB35 PO (11:03)
[2019-05-21 11:18] LABS: BASO # 0.1 10^3/uL (0.0-0.2); BASO % 0.8 % (0.0-1.0); EOS # 0.2 10^3/uL (0.0-0.5); EOS % 2.4 % (0.0-3.0); HEMATOCRIT 51.8 % (36.0-47.0); HEMOGLOBIN 16.5 g/dl (12.0-15.5); LYMPH # 1.8 10^3/uL (1.5-5.0); LYMPH % 29.3 % (24.0-44.0); MEAN CORPUSCULAR HEMOGLOBIN 30.3 pg (27.0-33.0); MEAN CORPUSCULAR HGB CONC 31.9 g/dl (32.0-36.5); MEAN CORPUSCULAR VOLUME 95.2 fl (80.0-96.0); MONO # 0.7 10^3/uL (0.0-0.8); MONO % 11.3 % (0.0-5.0); NEUTROPHILS # 3.5 10^3/uL (1.5-8.5); NEUTROPHILS % 55.9 % (36.0-66.0); PLATELET COUNT, AUTOMATED 173 10^3/uL (150-450); RED BLOOD COUNT 5.44 10^6/uL (4.00-5.40); WHITE BLOOD COUNT 6.2 10^3/uL (4.0-10.0)
--- NOTE | 2019-05-21 11:34 | REP ---
Portable chest, 11:39 a.m., single AP view with the patient upright: Comparison is 05/03/2018. The lung winston are clear. The cardiac size is normal. The alisha, mediastinum, and skeletal structures are unremarkable. Impression: Negative portable chest. There is no interval change. Electronically Signed by Cipriano Hassan MD 05/21/2019 11:25 A
[2019-05-21 12:00] LABS: BLOOD UREA NITROGEN 13 MG/DL (7-18); CALCIUM LEVEL 8.8 MG/DL (8.5-10.1); CARBON DIOXIDE LEVEL 33 MEQ/L (21-32); CHLORIDE LEVEL 102 MEQ/L (98-107); CK-MB VALUE MASS 2.1 NG/ML (<3.6); CPK CREATINE PHOSPHOKINASE 54 U/L (26-192); CREATININE FOR GFR 0.73 MG/DL (0.55-1.30); GLOMERULAR FILTRATION RATE > 60.0 (>51); GLUCOSE, FASTING 194 MG/DL (70-100); MB/CK RELATIVE INDEX 3.89 (< OR =4); POTASSIUM SERUM 4.3 MEQ/L (3.5-5.1); SODIUM LEVEL 138 MEQ/L (136-145); TROPONIN I < 0.02 NG/ML (< 0.10)
[2019-05-21 12:30] LABS: ALBUMIN 3.8 GM/DL (3.2-5.2); ALT/SGPT 21 U/L (12-78); BILIRUBIN,DIRECT 0.1 MG/DL (0.0-0.2); BILIRUBIN,TOTAL 0.5 MG/DL (0.2-1.0); LIPASE 148 U/L (73-393)
[2019-05-21 14:36] LABS: CK-MB VALUE MASS 1.7 NG/ML (<3.6); CPK CREATINE PHOSPHOKINASE 46 U/L (26-192); TROPONIN I < 0.02 NG/ML (< 0.10)
[2019-05-21 14:46] VITALS: BP 156/74
--- NOTE | 2019-05-21 20:56 | ECGEPIP ---
[facility] - ED Test Date: 2019-05-21 Pat Name: ELIJAH ESTRADA Department: Room: - Gender: Female Cpht: shaina : 1960 Requested By: Yohannes Bishop Order Number: [id number] Reading MD: Yohannes Sparks Measurements Intervals [place] Rate: 90 P: 44 ME: 236 QRS: 14 QRSD: 101 T: -19 QT: 368 QTc: 452 Interpretive Statements SINUS RHYTHM WITH FIRST DEGREE AV BLOCK POSSIBLE LEFT ATRIAL ENLARGEMENT INFERIOR MYOCARDIAL INFARCTION, OF INDETERMINATE AGE SIMILAR TO 05/03/18 Electronically Signed on 05-21-2019 20:55:44 EST by Yohannes Sparks
--- NOTE | 2019-05-21 21:04 | ECGEPIP ---
[facility] - ED Test Date: 2019-05-21 Pat Name: ELIJAH ESTRADA Department: Room: - Gender: Female [employer]: [place] : 1960 Requested By: Yohannes Bishop Order Number: [id number] Reading MD: Yohannes Sparks Measurements Intervals [place] Rate: 87 P: 55 MA: 267 QRS: 12 QRSD: 98 T: -7 QT: 376 QTc: 453 Interpretive Statements SINUS RHYTHM WITH FIRST DEGREE AV BLOCK POSSIBLE LEFT ATRIAL ENLARGEMENT INFERIOR MYOCARDIAL INFARCTION, OF INDETERMINATE AGE SIMILAR TO PRIOR ON SAME DATE Electronically Signed on 05-21-2019 21:04:31 EST by Yohannes Sparks
== END 2019-05-21 15:04 | disposition home or self-care (01) ==
LOC: M ED 10:42
DX: R07.89 Other chest pain (principal); I44.0 Atrioventricular block, first degree; E11.9 Type 2 diabetes mellitus without complications; J44.9 Chronic obstructive pulmonary disease, unspecified; I10 Essential (primary) hypertension; E78.5 Hyperlipidemia, unspecified; F95.0 Transient tic disorder; R91.1 Solitary pulmonary nodule; Z79.899 Other long term (current) drug therapy; Z79.82 Long term (current) use of aspirin; Z79.4 Long term (current) use of insulin; Z88.5 Allergy status to narcotic agent; Z88.8 Allergy status to other drugs, medicaments and biological substances; F17.210 Nicotine dependence, cigarettes, uncomplicated

== ENCOUNTER → 2019-06-24 | Outpatient (CLI) | payer OTHER ==
[~2019-06-24] MED LIST changes: +ACETAMINOPHEN 325 MG TAB PO PRN; +ADME100I SC; +CLOP75TA2 PO; +CLOPIDOGREL 75 MG TAB As Ordered ONE; +CLOPIDOGREL 75 MG TAB PO ONE; +HEPARIN 1,000 UNITS/ML 10ML VIAL (FOR RADIOLOGY& DIALYSIS ONLY)(J1644-10) As Ordered ONE; +ISOVUE-300 61% 50ML VIAL (Q9967) As Ordered ONE; +LIDOCAINE 1% MDV 20ML VIAL As Ordered ONE; +MIDAZOLAM INJ 2 MG/2 ML VIAL (J2250) As Ordered ONE; +NS 1,000 ML IV SCH; +PERCOCET 5MG/325MG TAB As Ordered ONE; +PERCOCET 5MG/325MG TAB PO ONE; +VENL1TAB35 PO; +fentaNYL 100 MCG/2 ML INJECTION (J3010) As Ordered ONE
--- NOTE | 2019-06-24 10:10 | ROOPDOC ---
[facility] Report Of Operation Report of Operation DATE OF PROCEDURE: 06/24/19 PREPROCEDURE DIAGNOSES: Atherosclerosis of the [place] vessels with lifestyle limiting claudication right lower extremity POSTPROCEDURE DIAGNOSES: Same PROCEDURE: 1. Ultrasound-guided access left common femoral artery 2. Aortoiliofemoral arteriogram, selection right common femoral artery and right lower extremity arteriogram 3. Cross chronic total occlusion right SFA and right lower extremity runoff arteriogram 4. Angioplasty right SFA and proximal popliteal artery with 5 x 200 [place] balloon 5. Stent distal SFA with 5 x 150 Innova stent, mid SFA with 6 x 150 Innova stent, proximal SFA with 6 x 150 Innova stent and post-dilation of stents with 6 x 200 [place] balloon 6. Attempt to cross chronic total occlusion left posterior tibial artery, aborted 7. Cross chronic total occlusion mid right anterior tibial artery and angioplasty with 2.5 x 220 Billy balloon 8. Completion arteriograms 9. Mynx closure left common femoral artery SURGEON: Valarie Steiner MD ANESTHESIA: Local anesthesia 10 mL lidocaine. Moderate intravenous conscious sedation was supervised by Dr. Steiner. The patient was independently monitored by registered nurse assigned to the Department of radiology using automated blood pressure, EKG, and pulse oximetry. The detailed sedation record is permanently stored in the hospital information system. The following is the brief sedation record: Time 07:47. Time 09:31 Versed 2 mg IV, fentanyl 100 g IV, heparin 5000 units IV. CONTRAST: 90 mL Isovue-300 INDICATION FOR PROCEDURE: This is a very pleasant 58-year-old patient with a long standing tobacco history and failed previous interventions in the right lower extremity who returns with lifestyle limiting claudication, short distance with long recovery. Risks benefits alternatives to right lower extremity arteriogram potential intervention were explained to the patient and she is agreeable to proceed. Informed consent was obtained. INTERPRETATION: 1. Aortoiliac segments are somewhat calcified and ectatic but no flow-limiting stenosis is noted. 2. The right common femoral artery and profunda are widely patent. The SFA is occluded 1 mm from its origin, in the mid SFA stents are occluded, and there is reconstitution through collateral circulation at the distal SFA proximal popliteal artery. The main runoff is through the peroneal artery, which collateralizes to the posterior tibial artery at the distal ankle. The posterior tibial artery is patent for about 5 cm proximally, then an incision on diminutive collaterals and reconstitutes at the ankle from collateral circula tion from the peroneal artery. The anterior tibial artery is open proximally, heavily calcified and ectatic with occlusions in the midportion and then is thready and has minimal runoff to the foot. 3. After crossing the chronic total occlusion in the SFA, we noticed a dissection in the distal superficial femoral artery and this was successfully navigated to be back in the true lumen of the popliteal artery and confirmed with arteriogram. We were successful with predilation of the entire SFA, and after stenting and post-dilation, there was widely patent flow from the origin to prevent SFA all the way through the popliteal artery with no flow limitations, no embolization, no extravasation, no dissection. 4. We attempted to cross the posterior tibial artery occlusion, but could not navigate to the patent area distally at the ankle. There was a small amount of extravasation from a collateral while we were trying to cross, and manual pressure was held on the cath for 3 minutes and following this no extravasation was noted. There was also no extravasation on her completion arteriograms either. 5. We are successful at crossing and angioplasty of the right anterior tibial artery and the patient following this had 2 vessel runoff to the foot. No extravasation no embolization or dissection were noted following angioplasty. REPORT OF OPERATION: The patient was brought to the angiographic suite in stable condition. Her bilateral groins were prepped and draped in a sterile fashion. A timeout was performed. Local anesthesia was administered to the skin and subcutaneous tissue over the left common femoral artery and a microneedle was used to access the artery under ultrasound guidance. A wire was passed through this access and a micro-sheath was placed. A Glidewire was advanced into the distal aorta under fluoroscopic guidance and the sheath was exchanged for 6 Kyrgyz sheath and flushed with saline. Infusion catheter was advanced over the wire and the distal aorta and then aortoiliofemoral arteriogram was performed. Please interpretation above. We then went up and over the bifurcation with the infusion catheter and the Glidewire and selected the right common femoral artery and further arteriograms were performed. Please see interpretation above. We could not get good pictures distally due to the lengthy occlusion of the SFA, therefore we advanced the wire into the profunda and exchange sheath for a 645 cm 6 Kyrgyz sheath and flushed the sheath with saline. We then set about navigating the wire into the superficial femoral artery, which was very challenging since only about 1 mm was patent proximally. Eventually, I was able to navigate the tip of the wire into the SFA. Following this, with the help of a book on catheter, we were able to slowly cross through the SFA proximally. When we reached the pre-existing stent, it was extremely challenging to cross. I was worried that we were in a subintimal plane and behind the stent, however with multiple rotations of the C-arm the wire did appear to be within the center lumen of the stent. We continue to cross and eventually we were able to get through to the popliteal artery. A quick contrast injection showed a dissection at the distal SFA, possibly from our crossing through the stent or possibly pre- existing. It did take us a moment to get through into the true lumen of the popliteal artery around the dissection. Once we confirmed we're in the true lumen, a runoff arteriogram was performed, please see interpretation above. We then angioplasty along the length of the SFA with a 5 x 200 Weatherford balloon for 3 minute inflations. I carefully watched the balloon inflate in case we were in fact somehow behind the stent, but it was within the lumen of the stent. Following angioplasty, there was still no flow proximally and we did a second angioplasty proximally across the origin of the SFA. There was quite a large chunk of plaque right at the origin of the SFA which had improve flow status post angioplasty. There is still however was a great deal of flow limitation and concern for reocclusion through the proximal SFA and the stent, as well as future issues because of the dissection of the distal aspect of the stent. There also was no overlap between the 2 stents, which may have been a nidus for restenosis. We therefore stented across the distal aspect of the SFA and the dissection with a 5 x 150 Innova stent, and we built the stents back to the origin of the SFA with a 1 cm overlap between stents with a 6 x 150 Innova stent and another 6 x 150 Innova stent. Before we deployed the proximal stent, we con firmed that we were at the origin of the SFA and not across the profunda with a quick injection of contrast. We postdilated the stents with a 6 x 200 Weatherford balloon. Following this we had widely patent flow through the profunda and the SFA into the popliteal artery. No extravasation embolization or dissection was noted. We then navigated the Glidewire with a glide cath into the posterior tibial artery. We exchanged for an O18 Glidewire advantage and [place] catheter and attempted to cross through the posterior tibial artery occlusion. There was a lot of collaterals at the occlusion point, and the wire continually tried to select the collaterals, but eventually I felt we were crossed passed into the true lumen, but the wire did not navigate distally and I felt concerned we might be outside the lumen of the vessel. A quick contrast injection did confirm there was a small amount of extravasation, and pressure was held in this area for 3 minutes. Following that, there was no extravasation noted. I think we may have been in one of the small collaterals. I do not feel we will be successful to cross the posterior tibial artery and we therefore turned our attention to the anterior tibial artery. He eventually was able to navigate the wire into the artery and with the [place] catheter we were able to cross all the way to the foot. We then angioplasty for three-minute inflations with a 2.5 x 220 Billy balloon along the length of the vessel. Following this, there was widely patent rapid flow through the 18 in the peroneal to the ankle still with good collateralization from the peritoneal to the posterior tibial at the foot. For today we will be satisfied with 2 vessel runoff where we had one vessel runoff previously, and this concluded our procedure. We exchanged the sheath over Glidewire for a short 6 Kyrgyz sheath and plan Mynx closure device in the left common femoral artery with good hemostasis. Pressure was held for 10 minutes and the patient was taken to recovery in stable condition. She tolerated the procedure and the sedation well with no complications. ESTIMATED BLOOD LOSS: Approximately 10 mL. COMPLICATIONS: None. PLAN: Recommend the patient to be on Plavix for life. Long discussion held with the patient about smoking cessation and we did warn her that there is 100% chance that our interventions today will fail if she continues to smoke. We have offered her assistance if she would like to quit. She can resume her preoperative medications and diet. We will see her back in the office in a week to see how she is doing. VALARIE STEINER MD Jun 24, 2019 10:09
[2019-06-24 13:45] VITALS: BP 162/78
== END ==
LOC: M IRPRO 06:18
PROVIDERS: ATTEND Surgery Vascular Surgery
DX: I70.211 Atherosclerosis of native arteries of extremities with intermittent claudication, right leg (principal); I70.92 Chronic total occlusion of artery of the extremities
CPT/HCPCS: 37226; 37228; 75710; 99152; 99153; C1725; C1729; C1760; C1769; C1876; C1887; C1894; J1644; J2250; J3010; Q9967

== ENCOUNTER → 2019-07-25 | Outpatient (CLI) | payer OTHER ==
[~2019-07-25] MED LIST changes: -ACETAMINOPHEN 325 MG TAB PO PRN; -CLOPIDOGREL 75 MG TAB As Ordered ONE; -CLOPIDOGREL 75 MG TAB PO ONE; -HEPARIN 1,000 UNITS/ML 10ML VIAL (FOR RADIOLOGY& DIALYSIS ONLY)(J1644-10) As Ordered ONE; -ISOVUE-300 61% 50ML VIAL (Q9967) As Ordered ONE; -LIDOCAINE 1% MDV 20ML VIAL As Ordered ONE; -MIDAZOLAM INJ 2 MG/2 ML VIAL (J2250) As Ordered ONE; -NS 1,000 ML IV SCH; -PERCOCET 5MG/325MG TAB As Ordered ONE; -PERCOCET 5MG/325MG TAB PO ONE; -fentaNYL 100 MCG/2 ML INJECTION (J3010) As Ordered ONE
--- NOTE | 2019-07-25 10:41 | REP ---
CT CHEST WITHOUT CONTRAST: Low-dose screening exam. HISTORY: COPD. Lung screening. Comparison chest CT study August 23, 2013. CT FINDINGS: Preliminary digital senior physician radiograph is unremarkable. There are clips in right upper quadrant of the abdomen. Axial CT images show a mild zone of linear fibrosis in the left upper lobe. There are left upper lobe perihilar emphysematous changes. There is a stable 4 mm nodular area in the left lung apex on page 10 of 97 series 201 of today's study. This is unchanged from 2014. There is a similar somewhat angular fibrotic appearing nodular density 5 mm in greatest diameter in the right apex on page 16 of today's study. This is also unchanged from the 2014 prior exam. Today's study demonstrates an ill-defined nodular opacity in the left lower lobe displayed on page 52. This was not apparent previously. It is 5 mm in greatest diameter and does not appear solid but rather ground-glass opacity. No other new pulmonary nodular opacity is appreciated. IMPRESSION: Lung RADS category 2 findings. Repeat screening study recommended 1 year. Electronically Signed by Carlos Shepherd MD 07/25/2019 11:05 A
== END ==
LOC: M RAD 08:22
PROVIDERS: ATTEND Internal Medicine Cardiovascular Disease
DX: J44.9 Chronic obstructive pulmonary disease, unspecified (principal); R91.8 Other nonspecific abnormal finding of lung field

== ENCOUNTER → 2019-07-30 | Outpatient (REF) | payer OTHER ==
[2019-07-30 13:55] LABS: ALBUMIN 3.7 GM/DL (3.2-5.2); ALT/SGPT 21 U/L (12-78); BILIRUBIN,TOTAL 0.5 MG/DL (0.2-1.0); BLOOD UREA NITROGEN 17 MG/DL (7-18); CALCIUM LEVEL 8.9 MG/DL (8.8-10.2); CARBON DIOXIDE LEVEL 29 MEQ/L (21-32); CHLORIDE LEVEL 101 MEQ/L (98-107); CREATININE FOR GFR 0.77 MG/DL (0.55-1.30); GLOMERULAR FILTRATION RATE > 60.0 (>45); GLUCOSE, FASTING 314 MG/DL (70-100); POTASSIUM SERUM 4.5 MEQ/L (3.5-5.1); SODIUM LEVEL 136 MEQ/L (136-145); TOTAL PROTEIN 7.1 GM/DL (6.4-8.2)
[2019-07-30 14:07] LABS: HEMOGLOBIN A1c 9.1 %
== END ==
LOC: M SFHCPLAZ 11:37
PROVIDERS: ATTEND Physician Assistant Medical
DX: E11.8 Type 2 diabetes mellitus with unspecified complications (principal); E78.5 Hyperlipidemia, unspecified

== ENCOUNTER → 2019-08-02 | Outpatient (CLI) | payer OTHER ==
--- NOTE | 2019-08-02 13:58 | REP ---
BILATERAL LOWER EXTREMITY DUPLEX DOPPLER ARTERIAL ULTRASOUND: Real-time ultrasound evaluation and duplex Doppler interrogation of the bilateral lower extremity arterial systems is performed and compared to a prior study of 12/20/2018. LAY right 0.86 and left 0.63. There is significant plaquing diffusely bilaterally, left greater than right. Previous study showed diffuse monophasic waveforms throughout the right lower extremity with occlusion of the proximal right superficial femoral artery. There is mild patency of the proximal superficial femoral artery with diffuse triphasic and biphasic waveforms of the right lower extremity, except for monophasic waveform in the distal right posterior tibial artery. There are stents throughout the right superficial femoral artery. There is occlusion of the mid right posterior tibial artery with reconstitution and reversal of flow of the distal VEGETABLE HARVEST WORKER. On the left, there is occlusion of the proximal superficial femoral artery again noted with reconstitution of the distal SFA. Diffuse monophasic waveforms are again seen of the distal SFA and more distal arterial structures. There are triphasic waveforms in the common femoral artery and profunda artery, with mild elevation of the left profunda peak systolic velocity. Left posterior tibial artery mid aspect is occluded with reconstitution distally. Complex hypoechoic structure at the right ankle probably represents a complex ganglion cyst. This measures about 1.0 x 0.5 x 0.9 cm. Right Peak Left Peak Systolic Velocity Systolic velocity Common femoral artery 116.4 cm/s 91.4 cm/s Profunda 105.4 cm/s 188.8 cm/s Proximal SFA 127.9 cm/s 95.7 cm/s Mid SFA 75.2 cm/s occluded Distal SFA 77.3 cm/s 30.9 cm/s Popliteal 55.4 cm/s 41.6 cm/s Proximal MAGDALENE 83.8 cm/s 48.0 cm/s Tibial peroneal trunk 54.7 cm/s 35.0 cm/s Proximal VEGETABLE HARVEST WORKER 42.2 cm/s 17.4 cm/s Distal VEGETABLE HARVEST WORKER 48.5 cm/s 26.0 cm/s Distal MAGDALENE 43.1 cm/s 33.0 cm/s Electronically Signed by Cipriano Roberson MD 08/02/2019 02:27 P
== END ==
LOC: M RAD 11:00
PROVIDERS: ATTEND Physician Assistant
DX: I70.213 Atherosclerosis of native arteries of extremities with intermittent claudication, bilateral legs (principal)

== ENCOUNTER → 2019-09-02 | Outpatient (CLI) | payer OTHER ==
[~2019-09-02] MED LIST changes: +AMMO12LO TOP; +CHAN1PAK13 PO; +GABA-1171 PO; +GABA-845 PO; -LISI40TA; +LISI40TA PO; +METF-791 PO; +PLAV1TAB2 PO; +TIZA2TA PO; +VENL37.52 PO; +[UNRECOGNIZED DRUG - OTHER]
--- NOTE | 2019-09-03 03:14 | REPPI ---
Clinical: Lumbago with left-sided sciatica. Technique: AP, lateral, flexion/extension, bilateral oblique and coned-down views of the lumbosacral spine. Comparison: 05/23/1979 Findings: Alignment and lordosis maintained. No acute fracture / compression injury or subluxation. Mild degenerative changes include endplate sclerosis, minimal disc space narrowing, and hypertrophic facet changes primarily involving L5-S1, L4-5, and L3-4. No obvious spondylolysis or spondylolisthesis. Neural foramen appear patent and within normal limits although narrowing at the bilateral L5-S1 foramina cannot be excluded. Impression: Mild/moderate degenerative spondylosis. Electronically Signed by Tyrell Contreras MD 09/03/2019 03:07 A
== END ==
LOC: M PLAIMG 14:40
PROVIDERS: ATTEND Physician Assistant Medical
DX: M47.817 Spondylosis without myelopathy or radiculopathy, lumbosacral region (principal)

== ENCOUNTER 2019-09-03 10:03 | Observation (INO) | payer OTHER ==
[~2019-09-03] VITALS: Ht 165.1 cm; Wt 106.7 kg
[~2019-09-03 10:03] MED LIST changes: -AMMO12LO TOP; -CHAN1PAK13 PO; -GABA-1171 PO; -GABA-845 PO; +LIDOCAINE 1% MDV 20ML VIAL ONE; -METF-791 PO; +MIDAZOLAM INJ 2MG/2ML VIAL (J2250 PER 1MG) ONE; -PLAV1TAB2 PO; -TIZA2TA PO; -VENL37.52 PO; -[UNRECOGNIZED DRUG - OTHER]; +fentaNYL 100 MCG/2 ML INJECTION (J3010) ONE
[2019-09-03] MEDS ORDERED: ISOVUE-300 61% 50ML VIAL ONE (10:05)
[2019-09-03] MEDS ORDERED: GABA-845 PO (10:14)
[2019-09-03] MEDS ORDERED: [UNRECOGNIZED DRUG - OTHER] (10:14)
--- NOTE | 2019-09-03 10:45 | REP ---
Head CT without contrast: History: Syncope. Comparison study: Comparison head CT study March 23, 2009. CT findings: Bone window settings demonstrate an intact bony calvarium. There is an old blowout fracture of the medial wall of the left orbit again noted. There is extensive vascular calcification in the distal internal carotid and distal vertebral arteries. There is no evidence of skull fracture or incidental bony calvarial lesion. The visualized paranasal sinuses appear clear. No intraorbital abnormality is seen. On soft tissue window setting images; the lateral, third, and fourth ventricles are normal in size and position. Roberson-white differentiation pattern is normal above and below the tentorium. There are is no evidence of intracranial hemorrhage. No mass, edema, infarction, or midline shift is seen. No extra-axial fluid collection is appreciated. Impression: Vascular calcification. Old blowout fracture left orbit medial wall. Otherwise negative noncontrast head CT. Electronically Signed by Carlos Shepherd MD 09/03/2019 10:37 A
--- NOTE | 2019-09-03 10:49 | REP ---
CT study of the cervical spine without contrast: History: Syncope. Comparison CT study of the cervical spine is from March 23, 2009. Technique: Helical scanning is acquired and overlapping 2 mm high resolution axial images were generated and reviewed at bone and soft tissue window settings. Coronal and sagittal multiplanar re-formations images are generated. CT findings: There is no evidence of cervical spine element fracture. There is some straightening. There is discogenic spurring and some disc space narrowing at C7-T1 and to a lesser extent at C6-7. There is neural foraminal narrowing on the right at C 03/04 due to facet spurring. No skull base fracture is seen. Cervical vertebral body heights are preserved. Alignment is normal. Facet joints are normally aligned bilaterally at each cervical level on multiplanar re-formations images. There is no evidence of intraspinal or paraspinal hematoma. No extra vertebral abnormality is seen. Vascular calcification is noted. Impression: Mild degenerative spondylosis changes and vascular calcification. Otherwise negative CT study of the cervical spine without contrast. No fracture seen. Electronically Signed by Carlos Shepherd MD 09/03/2019 10:41 A
[2019-09-03 10:50] LABS: BASO # 0.1 10^3/uL (0.0-0.2); BASO % 0.7 % (0.0-1.0); EOS # 0.2 10^3/uL (0.0-0.5); EOS % 2.4 % (0.0-3.0); HEMATOCRIT 49.9 % (36.0-47.0); HEMOGLOBIN 16.3 g/dl (12.0-15.5); LYMPH # 1.9 10^3/uL (1.5-5.0); LYMPH % 26.5 % (24.0-44.0); MEAN CORPUSCULAR HEMOGLOBIN 31.4 pg (27.0-33.0); MEAN CORPUSCULAR HGB CONC 32.7 g/dl (32.0-36.5); MEAN CORPUSCULAR VOLUME 96.1 fl (80.0-96.0); MONO # 0.8 10^3/uL (0.0-0.8); MONO % 10.7 % (0.0-5.0); NEUTROPHILS # 4.2 10^3/uL (1.5-8.5); PLATELET COUNT, AUTOMATED 180 10^3/uL (150-450); RED BLOOD COUNT 5.19 10^6/uL (4.00-5.40); WHITE BLOOD COUNT 7.1 10^3/uL (4.0-10.0)
[2019-09-03] MEDS ORDERED: TIZA2TA PO (11:01)
[2019-09-03] MEDS ORDERED: AMMO12LO TOP (11:01)
--- NOTE | 2019-09-03 11:12 | REP ---
CHEST SINGLE VIEW: There is no evidence of acute infiltrate. No pleural effusion is seen. The heart is normal in size. The mediastinal silhouette is unremarkable. The visualized osseous structures are intact. IMPRESSION: No acute pulmonary disease. Electronically Signed by Cipriano Roberson MD 09/03/2019 11:20 A
[2019-09-03 11:20] LABS: BLOOD UREA NITROGEN 8 MG/DL (7-18); CARBON DIOXIDE LEVEL 34 MEQ/L (21-32); CHLORIDE LEVEL 101 MEQ/L (98-107); CK-MB VALUE MASS 2.5 NG/ML (<3.6); CPK CREATINE PHOSPHOKINASE 64 U/L (26-192); CREATININE FOR GFR 0.64 MG/DL (0.55-1.30); FREE T4 1.01 NG/DL (0.76-1.46); GLOMERULAR FILTRATION RATE > 60.0 (>45); GLUCOSE, FASTING 160 MG/DL (70-100); MAGNESIUM LEVEL 1.8 MG/DL (1.8-2.4); MB/CK RELATIVE INDEX 3.91 (< OR =4); POTASSIUM SERUM 4.3 MEQ/L (3.5-5.1); SODIUM LEVEL 137 MEQ/L (136-145); TROPONIN I < 0.02 NG/ML (< 0.10)
[2019-09-03] MEDS ORDERED: PLAV1TAB2 PO (11:36)
[2019-09-03] MEDS ORDERED: VENL37.52 PO (11:36)
[2019-09-03] MEDS ORDERED: METF-838 PO (11:36)
[2019-09-03] MEDS ORDERED: GABA-1171 PO (11:36)
[2019-09-03] MEDS ORDERED: CHAN1PAK13 PO (11:36)
[2019-09-03 13:35] VITALS: BP 131/88
[2019-09-03] MEDS ORDERED: DEXTROSE 50% 50 ML SYRINGE IV PRN (14:30)
[2019-09-03] MEDS ORDERED: GLUCOSE 4GM CHEW TABLET PO PRN (14:30)
[2019-09-03] MEDS ORDERED: GLUCAGON INJ 1MG VIAL SC PRN (14:30)
[2019-09-03] MEDS ORDERED: SLF 3 ML SYR IV PRN (14:45)
--- NOTE | 2019-09-03 14:53 | CR.PDOC ---
General Date of Consultation: September 03, [address] Steiner HPI: The patient is a 58-year-old female with PAD, patient states previous stent placement in bilateral lower extremities in the past with vascular in [place]. The patient is status post right lower extremity angiogram as per Dr. Steiner 06/24/19 with right SFA angioplasty/stent, popliteal angioplasty, anterior tibial angioplasty. The patient was scheduled for left lower extremity arteriogram with Dr. Steiner 09/04/19 related to lifestyle limiting claudication. She states if she walks 20 feet she gets pain in the left lower extremity. There are no wounds on the lower extremities. Her legs tire easily. She has to walk slower to relieve t he discomfort. Ambulating in the grocery store also causes her increased pain, she is to use a shopping cart to relieve some of her symptoms. She is known to have neuropathy and chronic low back pain which caused her to have pain as well. The pt is a current smoker, but states she is cutting down. She states she is trying Chantix. The pt is on ASA/Plavix as outpatient. The patient held her Plavix today in preparation for angiogram tomorrow. The patient was admitted to [facility] as per the hospitalist with syncopal episode. The patient is hoping she can still proceed with angiogram tomorrow. PMHx: DM CAD/history of PA/cardiac stent Hypertension Dyslipidemia PAD Depression PSHX: Colonoscopy Cholecystectomy Angiogram right lower extremity 06/20 SOCHX: Current smoker FAMHX: HTN ROS: As noted in HPI, otherwise 11pt ROS of systems reviewed and unremarkable. PE: GEN: No acute distress. Alert and oriented x 3. Pleasant, interactive. Sitting up in bed eating. HEENT: Normocephalic, atraumatic. Moist mucous membranes. Dentition fair. Pharynx pink and moist, no cobblestoning. Neck supple, trachea midline. No lymphadenopathy or thyromegaly appreciated. CHEST: Regular rate and rhythm, +S1, +S2 LUNGS: Clear to auscultation bilaterally. ABD: Round, soft, non-tender, non-distended. EXT: Monophasic DP/PT left, biphasic DP/PT right NEURO: Alert and oriented x 3. Cranial nerves III-XII are intact. No focal deficits appreciated. A&P: 1. Atherosclerosis [place] vessels lower extremities/lifestyle limiting claudication The patient was previously scheduled for left lower extremity arteriogram as per Dr. Steiner 09/04/19. The patient held Plavix today with plan to hold Plavix in the morning for the procedure. Likely restart after the procedure. The patient would still like to proceed if she is cleared as per the hospitalist for the procedure. I have spoken with Dr. Mcelroy, the hospitalist who has admitted the patient this afternoon. Plan is to monitor the patient overnight on telemetry, if there are no episodes of bradycardia likely the patient may be able to proceed in the morning. Will await clearance as per hospitalist for the patient to proceed in the morning. Tentative plan is to continue to hold Plavix and nothing by mouth after midnight tonight for procedure tomorrow. The patient verbalizes understanding and agreement. Vital Signs/I&O Vital Signs Date Time Temp Pulse Resp B/P (MAP) Pulse Ox O2 Delivery O2 Flow Rate FiO2 09/03/19 13:35 97.8 94 18 131/88 (102) 94 09/03/19 13:19 Room Air Laboratory Data Labs 24H Laboratory Tests 2 09/03/19 10:31: Bedside Glucose (Misc Panel) 155H 09/03/19 10:32: Immature Granulocyte % (Auto) 0.7, Neutrophils (%) (Auto) 59.0, Lymphocytes (%) (Auto) 26.5, Monocytes (%) (Auto) 10.7H, Eosinophils (%) (Auto) 2.4, Basophils (%) (Auto) 0.7, Neutrophils # (Auto) 4.2, Lymphocytes # (Auto) 1.9, Monocytes # (Auto) 0.8, Eosinophils # (Auto) 0.2, Basophils # (Auto) 0.1, Nucleated Red Blood Cells % (auto) 0.0, Anion Gap 2L, Glomerular Filtration Rate > 60.0, Calcium Level 9.0, Magnesium Level 1.8, Total Creatine Kinase 64, Creatine Kinase MB 2.5, Creatine Kinase MB Relative Index 3.91, Troponin I < 0.02, Thyroid Stimulating Hormone (TSH) 3.070, Free Thyroxine 1.01 09/03/19 11:36: Coronavirus (COVID-19)(PCR) NEGATIVE CBC/BMP Laboratory Tests 09/03/19 10:32 Allergies Coded Allergies: atorvastatin (Verified Adverse Reaction, Intermediate, leg cramps/weakness, 11/22/18) codeine (Verified Adverse Reaction, Unknown, vomiting, 11/22/18) Home Medications Scheduled Amlodipine Besylate (Amlodipine Besylate) 5 Mg Tab, 5 MG PO DAILY, (Reported) Aspirin (Aspirin EC) 81 Mg Tablet.dr, 81 MG PO DAILY, (Reported) Clopidogrel Bisulfate (Plavix) 75 Mg Tablet, 75 MG PO DAILY, (Reported) Ezetimibe (Ezetimibe) 10 Mg Tab, 10 MG PO DAILY, (Reported) Gabapentin (Gabapentin) 100 Mg Capsule, 100 MG PO TID, (Reported) Insulin Glargine,Hum.rec.anlog (Basaglar Kwikpen U-100) 100 Unit/1 Ml Insuln.pen, 35 UNITS SC QHS, (Reported) Insulin Lispro (Admelog) 100 Unit/1 Ml Vial, 1 DOSE SC AC, (Reported) PER SLIDING SCALE Lisinopril (Lisinopril) 40 Mg Tablet, 40 MG PO DAILY, (Reported) Metformin HCl (Metformin HCl ER) 500 Mg Tab.er.24h, 500 MG PO BID, (Reported) Varenicline Tartrate (Chantix) 1 Mg Tablet, 1 MG PO BID, (Reported) Venlafaxine HCl (Venlafaxine HCl ER) 37.5 Mg Cap.er.24h, 37.5 MG PO DAILY, (Reported) Scheduled PRN Ammonium Lactate (Ammonium Lactate) 12% Lotion, 1 DOSE TOP DAILY PRN for DRY SKIN, (Reported) APPLY TO LEFT FOOT Tizanidine HCl (Tizanidine HCl) 2 Mg Tablet, 2 MG PO TID PRN for SPASMS, (Reported) Rayne Potts September 03, 2019 14:52
--- NOTE | 2019-09-03 15:03 | HPEPDOC ---
General Date of Admission September 03, 2019 at 10:04 Date of Service: September 03, 2019 Chief Complaint The patient is a 59-year-old female admitted with a reason for visit of Syncope And Collapse. Source: Patient History of Present Illness 59 year old female came 2 the ED for 2 episode of syncopal episode in 3 days. The first episode happened on 09/01/19 she was laying in bed watching tv and talking over the phone when she turned to the side to put the phone down when she passsed out for few seconds but in that time she had knocked over the table and things on the table and hit her head on the side table. prior to the episode she felt like a black screen coming down over her eyes. Second episode happed this am at 6 o clock . She had gootten up and had gone to the bathroom. SHe had turned around pushed down her pants and was going to sit on the commode when she passed out. Next thing she knows is her grandson yelling at her and she was on the bthroom floor with pants still down. No loss of bowel or bladder control. SHe says she was passed out for about 10 mins. Denied any recent illness, denied any recent change in medications. She was admitted for evaluation for recurrent Syncope. Work up in ED was negative for orthostatic hypotension, EKG sinus rhythm with first degree AV block, CT head negative, CT cervical spine no acute trauma, CXR negative. Home Medications Scheduled Amlodipine Besylate (Amlodipine Besylate) 5 Mg Tab, 5 MG PO DAILY, (Reported) Aspirin (Aspirin EC) 81 Mg Tablet.dr, 81 MG PO DAILY, (Reported) Clopidogrel Bisulfate (Plavix) 75 Mg Tablet, 75 MG PO DAILY, (Reported) Ezetimibe (Ezetimibe) 10 Mg Tab, 10 MG PO DAILY, (Reported) Gabapentin (Gabapentin) 100 Mg Capsule, 100 MG PO TID, (Reported) Insulin Glargine,Hum.rec.anlog (Basaglar Kwikpen U-100) 100 Unit/1 Ml Insuln.pen, 35 UNITS SC QHS, (Reported) Insulin Lispro (Admelog) 100 Unit/1 Ml Vial, 1 DOSE SC AC, (Reported) PER SLIDING SCALE Lisinopril (Lisinopril) 40 Mg Tablet, 40 MG PO DAILY, (Reported) Metformin HCl (Metformin HCl ER) 500 Mg Tab.er.24h, 500 MG PO BID, (Reported) Varenicline Tartrate (Chantix) 1 Mg Tablet, 1 MG PO BID, (Reported) Venlafaxine HCl (Venlafaxine HCl ER) 37.5 Mg Cap.er.24h, 37.5 MG PO DAILY, (Reported) Scheduled PRN Ammonium Lactate (Ammonium Lactate) 12% Lotion, 1 DOSE TOP DAILY PRN for DRY SKIN, (Reported) APPLY TO LEFT FOOT Tizanidine HCl (Tizanidine HCl) 2 Mg Tablet, 2 MG PO TID PRN for SPASMS, (Reported) Allergies Coded Allergies: atorvastatin (Verified Adverse Reaction, Intermediate, leg cramps/weakness, 11/22/18) codeine (Verified Adverse Reaction, Unknown, vomiting, 11/22/18) Past Medical History Medical History T2DM HTN CAD-STENTS 1 IN 2012, H/O MS PAD s/p right SFA and prox popliteal artery angioplasty and stenting of SFA, angioplasty of right ant tibial artery planned for left angiography on 09/04/19 COPD-GOLD STAGE III- PULM. NODULES IN LLL9MM, 6MM ON CT OF A&P 07/2013 COLON DIVERTICULOSIS, Diabetic Retinopathy DIABETAC NEUROPATHY PANCREATITIS 05/19 Depression Surgical History LAP cholecystectomy OVARIAN CYSTECTOMIES COLONOSCOPY-2 TUB. ADENS. - Family History Adapted does not know about family history Social History * Smoker: current smoker, greater than 1 pack/day Alcohol: Denies Drugs: denies A-FIB/CHADSVASC A-FIB History Current/History of A-Fib/PAF?: No Review of Systems Constitutional: Denies: Chills, Fever, Night Sweats Eyes: Denies: Pain, Vision change ENT: Denies: Head Aches, Ear Pain, Dysphagia Skin: Denies: Rash, Lesions, Breakdown Pulmonary: Denies: Dyspnea, Cough Cardiovascular: Reports: Other Symptoms (Syncope); Denies: Chest Pain, Palpitations, Orthopnea, Paroxysmal Noc. Dyspnea, Lt Headedness Gastrointestinal: Denies: Nausea, Vomiting, Abdominal Pain, Diarrhea Genitourinary: Denies: Dysuria, Frequency, Incontinence, Retention Musculoskeletal: Denies: Neck Pain, Back Pain, Joint Pain, Muscle Pain, Spasms Physical Examination General Exam: Positive: Alert, Cooperative, No Acute Distress Eye Exam: Positive: PERRLA, Conjunctiva & lids normal, EOMI; Negative: Sclera icteric ENT Exam: Positive: Atraumatic, Mucous membr. moist/pink, Pharynx Normal Neck Exam: Positive: Supple; Negative: JVD, thyromegaly Chest Exam: Positive: Clear to auscultation, Normal air movement Heart Exam: Positive: Rate Normal, Regular Rhythm, Normal S1, Normal S2; Negative: Murmurs, Rubs Telemetry: Positive: No significant arrhythmia Abdomen Exam: Positive: Normal bowel sounds, Soft; Negative: Tenderness, Hepatospenomegaly Extremity Exam: Negative: Clubbing, Cyanosis, Edema Skin Exam: Positive: Nl turgor and temperature; Negative: Breakdown, Lesion Vital Signs Vital Signs Date Time Temp Pulse Resp B/P (MAP) Pulse Ox O2 Delivery O2 Flow Rate FiO2 09/03/19 13:35 97.8 94 18 131/88 (102) 94 09/03/19 13:19 Room Air Laboratory Data Labs 24H Laboratory Tests 2 09/03/19 10:31: Bedside Glucose (Misc Panel) 155H 09/03/19 10:32: Immature Granulocyte % (Auto) 0.7, Neutrophils (%) (Auto) 59.0, Lymphocytes (%) (Auto) 26.5, Monocytes (%) (Auto) 10.7H, Eosinophils (%) (Auto) 2.4, Basophils (%) (Auto) 0.7, Neutrophils # (Auto) 4.2, Lymphocytes # (Auto) 1.9, Monocytes # (Auto) 0.8, Eosinophils # (Auto) 0.2, Basophils # (Auto) 0.1, Nucleated Red Blood Cells % (auto) 0.0, Anion Gap 2L, Glomerular Filtration Rate > 60.0, Calcium Level 9.0, Magnesium Level 1.8, Total Creatine Kinase 64, Creatine Kinase MB 2.5, Creatine Kinase MB Relative Index 3.91, Troponin I < 0.02, Thyroid Stimulating Hormone (TSH) 3.070, Free Thyroxine 1.01 09/03/19 11:36: Coronavirus (COVID-19)(PCR) NEGATIVE CBC/BMP Laboratory Tests 09/03/19 10:32 Assessment/Plan 59 year old female came 2 the ED for 2 episode of syncopal episode in 3 days. The first episode happened on 09/01/19 she was laying in bed watching tv and talking over the phone when she turned to the side to put the phone down when she passsed out for few seconds but in that time she had knocked over the table and things on the table and hit her head on the side table. prior to the episode she felt like a black screen coming down over her eyes. Second episode happed this am at 6 o clock . She had gotten up and had gone to the bathroom. SHe had turned around pushed down her pants and was going to sit on the commode when she passed out. Next thing she knows is her grandson yelling at her and she was on the bathroom floor with pants still down. No loss of bowel or bladder control. SHe says she was passed out for about 10 mins. Denied any recent illness, denied any recent change in medications. She was admitted for evaluation for recurrent Syncope. Recurrent Syncope monitor under telemetry for any cardiac arrhythmia. carotid US will request records from Dr Hackett for echo and stress test done recently. orthostatic vitals. PAD planned for left leg angiography on 09/04/19 hold plavix, half dose of levemir tonight , npo midnight vascular consult Diabetes with neuropathy and retinopathy continue levemir and lispro and gabapentin. hold metformin hyperlipidemia continue ezitimibe Obesity Hypertension continue home meds. Plan / VTE VTE Prophylaxis Ordered?: Yes PRIETO MIKE MD September 03, 2019 15:03
[2019-09-03 15:17] VITALS: BP_SYST 150; BP_SYST 152; BP_SYST 164; BP_DIAS 73; BP_DIAS 74; BP_DIAS 82
--- NOTE | 2019-09-03 15:20 | REP ---
SYNCOPAL EPISODE: PRIORS: None. There is mild echogenic material seen along the carotid arterial orozco. In some areas the amount of echogenic material is mild to moderate and seen with some acoustic shadowing consistent with calcific deposition. RIGHT LEFT CCA systolic 70.8 cm/s 94.9 cm/s CCA diastolic 14.3 cm/s 18.7 cm/s ICA systolic 62.7 cm/s 53.7 cm/s ICA diastolic 19.7 cm/s 19.3 cm/s ICA/CCA ratio 0.89 0.570 Analysis of the spectral waveform shows no evidence of significant spectral broadening. There is antegrade flow seen in both vertebral arteries. IMPRESSION: According to the NASCET consensus criteria, there is less than 50% stenosis of the internal carotid artery bilaterally. This is secondary to both calcified and noncalcified plaque formation. Electronically Signed by Fei Field DO 09/03/2019 04:23 P
[2019-09-03 15:22] VITALS: BP 164/82
[2019-09-03] MEDS: GABAPENTIN 100 MG CAP PO SCH ×2 (15:42→21:18)
[2019-09-03] MEDS: HumaLOG INSULIN (NovoLOG) PER UNIT SC SCH ×3 (16:38→21:00)
[2019-09-03 20:00] VITALS: BP 158/78
--- NOTE | 2019-09-03 20:02 | ECHO ---
DATE OF PROCEDURE: 09/03/2019 Date of : 1960 Age: 59 Gender: Female Height: 65 inches Weight: 240 pounds Body surface area: 2.14 meters squared Inpatient: Progressive care unit (PCU), room 3225 REFERRING PHYSICIAN: Dr. Leydi Mcelroy INDICATION: Syncope. MEASUREMENTS: 2D Measurements: RV: 3.9 cm LV: 5.0 cm Septum: 1.1 cm Posterior wall: 1.1 cm Aortic root: 3.2 cm LA: 3.6 cm LVEF: 65% Doppler Measurements: AV: 1.56 meters per second LVOT: 0.63 meters per second LVOT diameter: 1.9 cm Mean AV systolic gradient: 6 mmHg Dimensionless index: 0.35 MV: Not possible to separate early and late diastolic filling in light of first-degree atrioventricular (AV) block. PV: 0.7 meters per second Pulmonary artery acceleration time: 103 milliseconds PASP: 35 mmHg IVC: 1.4 cm COMMENTS: Normal sinus rhythm with first-degree AV block and intraventricular conduction disturbance. Technically difficult study in light of the patient's body habitus but diagnostically useful information was still obtained. M-mode and two-dimensional echocardiography was performed with pulsed, continuous wave, color flow and tissue Doppler studies. Normal left ventricular size and wall thickness upper limits of normal with normal wall motion. Left atrial size upper limits of normal. Unable to evaluate left ventricular (LV) diastolic function related to superimposition of early and late diastolic filling patterns due to first-degree AV block. Normal right heart chamber sizes and motion with Doppler evidence of mild pulmonary hypertension. Normal inferior vena cava (IVC) size and collapse against an elevated central venous pressure. Normal aortic root and ascending aortic diameters. Moderate thickening of three-equal size aortic cusps with restricted separation and dimensionless index suggestive of at least mild aortic stenosis. No more than trace aortic insufficiency. Mild mitral annular calcification without functional valvular abnormality. Normal appearing tricuspid valve with trace insufficiency. No apparent intracardiac mass or pericardial effusion.
[2019-09-03] MEDS: VARENICLINE 1 MG TABLET PO SCH (21:18)
[2019-09-03] MEDS: LEVEMIR (INSULIN DETEMIR) 1 UNITS/0.01ML SC SCH (21:19)
[2019-09-03] MEDS: SLF 3 ML SYR IV SCH (21:19)
[2019-09-04] VITALS (9 sets, daily range): BP systolic 132–155; BP diastolic 74–91
[2019-09-04] MEDS: SLF 3 ML SYR IV SCH ×3 (05:26→22:00)
[2019-09-04 05:50] LABS: BASO % 0.5 % (0.0-1.0); EOS # 0.2 10^3/uL (0.0-0.5); EOS % 3.1 % (0.0-3.0); HEMATOCRIT 47.1 % (36.0-47.0); HEMOGLOBIN 15.6 g/dl (12.0-15.5); LYMPH # 2.4 10^3/uL (1.5-5.0); LYMPH % 32.8 % (24.0-44.0); MEAN CORPUSCULAR HEMOGLOBIN 31.4 pg (27.0-33.0); MEAN CORPUSCULAR HGB CONC 33.1 g/dl (32.0-36.5); MEAN CORPUSCULAR VOLUME 94.8 fl (80.0-96.0); MONO # 0.8 10^3/uL (0.0-0.8); MONO % 10.6 % (0.0-5.0); NEUTROPHILS # 3.9 10^3/uL (1.5-8.5); NEUTROPHILS % 52.5 % (36.0-66.0); PLATELET COUNT, AUTOMATED 172 10^3/uL (150-450); RED BLOOD COUNT 4.97 10^6/uL (4.00-5.40); WHITE BLOOD COUNT 7.4 10^3/uL (4.0-10.0)
[2019-09-04 06:18] LABS: BLOOD UREA NITROGEN 10 MG/DL (7-18); CALCIUM LEVEL 8.7 MG/DL (8.8-10.2); CARBON DIOXIDE LEVEL 32 MEQ/L (21-32); CHLORIDE LEVEL 107 MEQ/L (98-107); CREATININE FOR GFR 0.58 MG/DL (0.55-1.30); GLOMERULAR FILTRATION RATE > 60.0 (>45); GLUCOSE, FASTING 79 MG/DL (70-100); POTASSIUM SERUM 4.1 MEQ/L (3.5-5.1); SODIUM LEVEL 143 MEQ/L (136-145)
[2019-09-04] MEDS: HumaLOG INSULIN (NovoLOG) PER UNIT SC SCH ×4 (07:24→20:45)
--- NOTE | 2019-09-04 08:55 | ECGEPIP ---
[facility] - ED Test Date: 2019-09-03 Pat Name: ELIJAH ESTRADA Department: Room: [place] [address] Gender: Female Nursing Clerk: fe : 1960 Requested By: ERNIE Carver Order Number: [id number] Reading MD: Sharri Hodgson Measurements Intervals [place] Rate: 84 P: 58 [place]: 263 QRS: 20 QRSD: 110 T: -17 QT: 364 QTc: 431 Interpretive Statements SINUS RHYTHM WITH FIRST DEGREE AV BLOCK NONSPECIFIC ST & T-WAVE ABNORMALITY INFERIOR INFARCT, OF INDETERMINATE AGE SIMILAR 05/21/19 Electronically Signed on 09-04-2019 8:55:17 EDT by Sharri Hodgson
[2019-09-04] MEDS: GABAPENTIN 100 MG CAP PO SCH ×3 (09:00→20:45)
[2019-09-04] MEDS: LEVEMIR (INSULIN DETEMIR) 1 UNITS/0.01ML SC SCH ×2 (09:00→20:45)
--- NOTE | 2019-09-04 11:04 | IPNPDOC ---
Text Note Date of Service The patient was seen on 09/04/19. NOTE Subjective: Does not have any complaints this morning. Telemetry did not show any acute events overnight. Going to OR today for vascular procedure. Physical Exam: Vitals: As below General Exam: Positive: Alert, Cooperative, No Acute Distress Eye Exam: Positive: PERRLA, Conjunctiva & lids normal, EOMI; Negative: Sclera icteric ENT Exam: Positive: Atraumatic, Mucous membr. moist/pink, Pharynx Normal Neck Exam: Positive: Supple; Negative: JVD, thyromegaly Chest Exam: Positive: Clear to auscultation, Normal air movement Heart Exam: Positive: Rate Normal, Regular Rhythm, Normal S1, Normal S2; Negative: Murmurs, Rubs Telemetry: Positive: No significant arrhythmia Abdomen Exam: Positive: Normal bowel sounds, Soft; Negative: Tenderness, Hepatospenomegaly Extremity Exam: Negative: Clubbing, Cyanosis, Edema Skin Exam: Positive: Nl turgor and temperature; Negative: Breakdown, Lesion Labs and Radiology: reviewed. Assessment and Plan : 59 year old female came 2 the ED for 2 episode of syncopal episode in 3 days. She has a PMH of CAD with inferior wall AMI in 2006, systolic CHF with EF of 45%, DM, Hyppertension, PAD s/p stent on the right leg, neuro alex, hyperlipidemia, obesity, The first episode happened on 09/01/19 she was laying in bed watching tv and talking over the phone when she turned to the side to put the phone down when she passed out for few seconds but in that time she had knocked over the table and things on the table and hit her head on the side table. prior to the episode she felt like a black screen coming down over her eyes. Second episode happed this am at 6 o clock . She had gotten up and had gone to the bathroom. She had turned around pushed down her pants and was going to sit on the commode when she passed out. Next thing she knows is her grandson yelling at her and she was on the bathroom floor with pants still down. No loss of bowel or bladder control. SHe says she was passed out for about 10 mins. Denied any recent illness, denied any recent change in medications. She was admitted for evaluation for recurrent Syncope. Recurrent Syncope monitor under telemetry for [address] Hackett in view of the preexisting heart disease for any cardiac arrhythmia. Dr Hackett wants her to go to his office immediately after discharge from the hospital on 09/06/19 and get an event monitor. carotid US negative for significant obstruction. Echo from Dr Hackett shows regional wall motion abnormality in the inferior wall and Ef of 45%. Stress test shows fixed deformity of the inferior wall. orthostatic vitals. H/O CAD with inferior wall AMi in 2006 she had temporary heart block during that time. PAD s/p right SFA stenting and right anterior tibial artery angioplasty. left leg angiography on 09/04/19 COVID-19 negative. hold plavix till cleared by vascular Chronic Systolic CHF with EF of 45% no fluid overload at this time not on any diuretics continue ACEI Diabetes with neuropathy and retinopathy continue levemir and lispro and gabapentin. hold metformin hyperlipidemia continue ezitimibe Obesity Hypertension continue home VS,Fishbone, I+O VS, Fishbone, I+O Laboratory Tests 09/04/19 05:06 Vital Signs Date Time Temp Pulse Resp B/P (MAP) Pulse Ox O2 Delivery O2 Flow Rate FiO2 09/04/19 10:40 79 16 98 Nasal Cannula 2 09/04/19 08:48 97.7 09/04/19 08:00 149/84 (105) I&O- Last 24 Hours up to 6 AM 09/04/19 06:00 Intake Total 960 ml Output Total 1500 ml Balance -540 ml PRIETO MIKE MD September 04, 2019 11:04
--- NOTE | 2019-09-04 11:32 | ROOPDOC ---
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 Ultrasound-guided access right common femoral artery 2. Aortoiliofemoral arteriogram and selection of left common femoral artery and superficial femoral artery with left lower extremity runoff 3. Attempt to cross left superficial femoral artery chronic total occlusion, aborted 4. Mynx closure right common femoral artery SURGEON: Valarie Steiner MD ANESTHESIA: Local anesthesia 10 mL lidocaine. Moderate intravenous conscious sedation was supervised by Dr. Steiner. The patient was independently monitored by registered nurse assigned to the Department of radiology using automated blood pressure, EKG, and pulse oximetry. The detailed sedation record is permanently stored in the hospital information system. The following is the brief sedation record: Start time 10:20, stop time 10:58, Versed 2 mg IV, fentanyl 100 g IV. CONTRAST: 44 mL Isovue-300 INDICATION FOR PROCEDURE: Ms. Parra is a very pleasant 59-year-old patient with severe left lower extremity peripheral vascular disease and lifestyle limiting claudication and left leg pain. Risks benefits and alternatives to left lower extremity arteriogram and potential intervention were explained to the patient and she was agreeable to proceed. Informed consent was obtained. This procedure was originally scheduled as an outpatient procedure, but the patient was admitted yesterday due to a syncopal episode and a fall. We have reviewed her head CT and her workup. She has not had any intracranial bleeding, nor has she had any confusion or mental status changes, she has no focal deficits on exam today in her vision and speech are intact. She did not have any nosebleeds or other bleeding. Her heart rate and blood pressure have remained stable overnight on telemetry. At this point I do feel it is safe to proceed with the angiogram and the patient is anxious to proceed due to her symptoms. The hospitalist is in agreement that we are okay to proceed. INTERPRETATION: 1. Distal aorta and common iliac arteries are widely patent bilaterally. The hypogastric arteries are widely patent. There is a 30-40% stenosis in the mid external iliac artery on the right, but otherwise the artery is widely patent. On the left the external iliac arteries widely patent. 2. The left common femoral artery is widely patent and runs off into the profunda which is large and provides collateral circulation down to the above- knee popliteal artery. The superficial femoral artery is heavily diseased and ectatic and diffusely narrowed proximally for about 10 cm, then it occludes and reconstitutes at the popliteal artery above the knee near Hugh's canal. There is a large collateral branch at the occlusion in the proximal as they which joins into the collateral circulation supplying the above-knee popliteal artery. The popliteal artery is mildly disease but overall patent with rapid flow and 2 vessel runoff to the foot. The posterior tibial artery occludes a few centimeters from its origin and does not reconstitutes in the calf. However, the patient has excellent runoff through the anterior tibial artery which provides good flow all the way through the dorsal pedis and plantar vessels. The peroneal artery also is fairly large with rapid flow and provides collateral circulation across the ankle to the posterior tibial artery which then runs off to the foot through the plantar vessels. 3. After a lengthy attempt to cross the chronic total occlusion in the left superficial femoral artery, this was eventually aborted. We were able to cross in his subintimal plane, but we were not able to reenter the true lumen. Completion arteriograms were performed from the iliac to the tibials, and no extravasation was noted after attempts to cross the occluded vessel. REPORT OF OPERATION: Patient was brought to the angiographic suite in stable condition. Her bilateral groins were prepped and draped in a sterile fashion. A timeout was performed. Sedation was administered without complication. Local anesthesia was administered to the skin and subcutaneous tissue over the right groin. A microneedle was used to access the right common femoral artery under ultrasound guidance. A wire was passed through this access under fluoroscopic guidance. A 4 Salvadorean sheath was placed and flushed with saline. We then advanced a Glidewire on the flushed catheter and distal aorta. Aortoiliofemoral arteriograms were performed. We then went up and over the bifurcation and additional left iliac images were taken. We then advanced the catheter and the common femoral artery in the proximal superficial femoral artery and the left lower extremity runoff was performed. Please see above for interpretation. Following this, we did not feel confident we would be able to cross the lesion in the superficial femoral artery, and I suspected the patient would need a femoral to above-knee popliteal bypass, but I thought it was worthwhile to try to cross in the hopes that we can save her from an open procedure. The Glidewire was advanced to the occlusion and the sheath was exchanged for a 5 Salvadorean sheath and flushed with saline. A [place] catheter was passed over the wire. We then attempted to cross through the occlusion in the mid distal superficial femoral artery. We were able to cross in his subintimal plane, but we were not able to reenter the true lumen. We attempted to cross for about 20 minutes and then this was aborted. Following this, extensive images were taken from the iliacs to the tibials to make sure there is no extravasation or embolization from our attempts to cross. Aside from the chronic occlusions, the previously patent vessels remained patent and there was no embolization dissection or extravasation noted. This concluded our procedure. We removed the catheter over the wire and the plan Mynx closure device with good hemostasis. Pressure was held for 10 minutes and the patient was taken to recovery in stable condition. She tolerated the procedure and the sedation well. ESTIMATED BLOOD LOSS: Approximately 5 mL. COMPLICATIONS: None. PLAN: It is okay for the patient to resume her diet and medications. She will need 4 hours of bedrest postprocedure. After 15:30, it is okay for the patient to get out of bed with assistance. No strenuous exercise or heavy lifting for 48 hours. We will eventually discussed with the patient options for a left femoral to above-knee popliteal bypass. We will obtain a vein mapping to see if she has suitable vein to use for the bypass. This is not urgent. The patient is not at risk for limb loss and we can do this after her syncope has been sufficiently worked up and we get the appropriate cardiac clearance. This will be done outpatient. Smoking cessation remains imperative. Any intervention we provide will likely feel the patient continues to smoke. We appreciate the opportunity to participate in the care of this patient. VALARIE STEINER MD September 04, 2019 11:32
[2019-09-04] MEDS: ASPIRIN 81 MG ENTERIC TAB PO SCH (12:04)
[2019-09-04] MEDS: EZETIMIBE 10 MG TAB (ZETIA) PO SCH (12:04)
[2019-09-04] MEDS: VARENICLINE 1 MG TABLET PO SCH ×2 (12:04→20:45)
[2019-09-04] MEDS: lisinopriL 40 MG TAB PO SCH (12:04)
[2019-09-04] MEDS: amLODIPine 5 MG TAB PO SCH (12:05)
[2019-09-04] MEDS: VENLAFAXINE **XR** 37.5 MG CAPSULE PO SCH (12:05)
--- NOTE | 2019-09-04 16:14 | REP ---
BILATERAL LOWER EXTREMITY VENOUS MAPPING FOR BYPASS GRAFT: Real-time ultrasound evaluation of bilateral lower extremity venous systems is performed to evaluate for bypass graft. Right greater saphenous vein is measured, in the proximal thigh maximum diameter is 5 mm, mid thigh 2 mm, distal thigh 2 mm and mid calf 3 mm. Right anterior accessory greater saphenous vein is seen extending to the tibial plateau and communicating with the greater saphenous vein at that level. This anterior accessory greater saphenous vein measures 4 mm proximally, 3 mm at the mid thigh, 4 mm at the distal thigh and 3 mm at the tibial plateau. The length is approximately 17 cm. On the left, the greater saphenous vein measures 4 mm in the proximal thigh and 2 mm throughout the mid to distal thigh into the mid calf. Left anterior accessory greater saphenous vein is present and extends through the thigh to reconnect with the greater saphenous vein at the level of the tibial plateau. It measures 5 mm proximally and 2 mm in the mid to distal thigh. Electronically Signed by Cipriano Roberson MD 09/04/2019 04:17 P
[2019-09-05] VITALS: BP 138/78
[2019-09-05 04:00] VITALS: BP 132/78
[2019-09-05] MEDS: SLF 3 ML SYR IV SCH (05:43)
[2019-09-05 06:03] LABS: BASO % 0.4 % (0.0-1.0); EOS # 0.2 10^3/uL (0.0-0.5); EOS % 2.6 % (0.0-3.0); HEMATOCRIT 45.8 % (36.0-47.0); HEMOGLOBIN 15.4 g/dl (12.0-15.5); LYMPH # 1.9 10^3/uL (1.5-5.0); MEAN CORPUSCULAR HEMOGLOBIN 31.8 pg (27.0-33.0); MEAN CORPUSCULAR HGB CONC 33.6 g/dl (32.0-36.5); MEAN CORPUSCULAR VOLUME 94.4 fl (80.0-96.0); MONO # 0.8 10^3/uL (0.0-0.8); MONO % 11.4 % (0.0-5.0); NEUTROPHILS % 57.2 % (36.0-66.0); PLATELET COUNT, AUTOMATED 150 10^3/uL (150-450); RED BLOOD COUNT 4.85 10^6/uL (4.00-5.40); WHITE BLOOD COUNT 6.9 10^3/uL (4.0-10.0)
[2019-09-05 06:28] LABS: BLOOD UREA NITROGEN 10 MG/DL (7-18); CALCIUM LEVEL 8.8 MG/DL (8.8-10.2); CARBON DIOXIDE LEVEL 31 MEQ/L (21-32); CHLORIDE LEVEL 105 MEQ/L (98-107); CREATININE FOR GFR 0.61 MG/DL (0.55-1.30); GLOMERULAR FILTRATION RATE > 60.0 (>45); GLUCOSE, FASTING 130 MG/DL (70-100); POTASSIUM SERUM 4.3 MEQ/L (3.5-5.1); SODIUM LEVEL 142 MEQ/L (136-145)
[2019-09-05 07:23] VITALS: BP_SYST 160; BP_SYST 164; BP_SYST 169; BP_DIAS 83; BP_DIAS 86; BP_DIAS 94
--- NOTE | 2019-09-05 09:00 | IPNPDOC ---
Date Seen The patient was seen on 09/05/19. Progress Note Patient seen and examined. Doing well postoperative day one status post left lower extremity arteriogram. Her right groin access site is clean dry and intact with scant bruising. It is okay to remove the dressing today. It is okay to shower today. It is okay to leave the area open to air. It is okay to ambulate. No strenuous exercise or lifting greater than 10 pounds for 48 hours. It is okay to discharge from a vascular surgery standpoint. We will see her back in a week to check her groin access site and then in a few months to discuss options for surgery. I discussed with the patient that we would like to see how she does with her smoking cessation and a walking program prior to proceeding with a left femoral to above-knee popliteal bypass. She does not have suitable vein for autologous bypass, and we would likely do a Echo-Prashant bypass versus cadaver vein. This is a little bit higher risk for postoperative thrombosis, failure, infection, seroma, and all of that risk is increased with smoking. We expressed to her that for her best outcome, it would be best if she quit smoking prior to surgery. I also discussed with her that if she does quit smoking, and walks at least 30-60 rené aimee daily with breakthrough claudication, she may develop enough improvement in her collateral circulation that her pain resolves. The patient is agreeable to this plan. VS, I&O, 24H, Fishbone Vital Signs/I&O Vital Signs Date Time Temp Pulse Resp B/P (MAP) Pulse Ox O2 Delivery O2 Flow Rate FiO2 09/05/19 07:27 97.5 94 09/05/19 07:23 72 160/83 (108) 81 164/94 (117) 81 169/86 (113) 09/05/19 04:00 16 Room Air 09/04/19 11:30 2 I&O- Last 24 Hours up to 6 AM 09/05/19 06:00 Intake Total 1360 ml Output Total 2400 ml Balance -1040 ml Laboratory Data 24H LABS Laboratory Tests 2 09/04/19 09:06: Bedside Glucose (Misc Panel) 94 09/04/19 12:03: Bedside Glucose (Misc Panel) 82 09/04/19 16:29: Bedside Glucose (Misc Panel) 188H 09/04/19 19:52: Bedside Glucose (Misc Panel) 199H 09/05/19 05:26: Immature Granulocyte % (Auto) 0.4, Neutrophils (%) (Auto) 57.2, Lymphocytes (%) (Auto) 28.0, Monocytes (%) (Auto) 11.4H, Eosinophils (%) (Auto) 2.6, Basophils (%) (Auto) 0.4, Neutrophils # (Auto) 4.0, Lymphocytes # (Auto) 1.9, Monocytes # (Auto) 0.8, Eosinophils # (Auto) 0.2, Basophils # (Auto) 0.0, Nucleated Red Blood Cells % (auto) 0.0, Anion Gap 6L, Glomerular Filtration Rate > 60.0, Calcium Level 8.8 CBC/BMP Laboratory Tests 09/05/19 05:26 VALARIE WHITT MD September 05, 2019 09:00
[2019-09-05] MEDS: HumaLOG INSULIN (NovoLOG) PER UNIT SC SCH (09:02)
[2019-09-05 09:03] VITALS: BP 169/86
[2019-09-05] MEDS: VENLAFAXINE **XR** 37.5 MG CAPSULE PO SCH (09:03)
[2019-09-05] MEDS: VARENICLINE 1 MG TABLET PO SCH (09:03)
[2019-09-05] MEDS: amLODIPine 5 MG TAB PO SCH (09:03)
[2019-09-05] MEDS: GABAPENTIN 100 MG CAP PO SCH (09:03)
[2019-09-05] MEDS: ASPIRIN 81 MG ENTERIC TAB PO SCH (09:03)
[2019-09-05] MEDS: lisinopriL 40 MG TAB PO SCH (09:03)
[2019-09-05] MEDS: EZETIMIBE 10 MG TAB (ZETIA) PO SCH (09:03)
[2019-09-05] MEDS: LEVEMIR (INSULIN DETEMIR) 1 UNITS/0.01ML SC SCH (09:04)
--- NOTE | 2019-09-05 13:18 | DS.PDOC ---
Discharge Summary General Date of Admission September 03, 2019 at 10:04 Date of Discharge 09/05/19 Discharge Summary PROCEDURES PERFORMED DURING STAY: 1. Ultrasound-guided access right common femoral artery 2. Aortoiliofemoral arteriogram and selection of left common femoral artery and superficial femoral artery with left lower extremity runoff 3. Attempt to cross left superficial femoral artery chronic total occlusion, aborted 4. Mynx closure right common femoral artery DISCHARGE DIAGNOSES: Syncope etiology to be determined. s/p Lower extremity arteriogram with Attempt to cross left superficial femoral a rtery chronic total occlusion, aborted SECONDARY DIAGNOSIS: CAD with inferior wall AMI in 2006, systolic CHF with EF of 45%, DM, Hypertension, PAD s/p stent on the right leg, neuropathy, hyperlipidemia, obesity, COMPLICATIONS/CHIEF COMPLAINT: Syncope And Collapse. HISTORY OF PRESENT ILLNESS: See history and physical HOSPITAL COURSE: Labs and Radiology: reviewed. Assessment and Plan : 59 year old female came 2 the ED for 2 episode of syncopal episode in 3 days. She has a PMH of CAD with inferior wall AMI in 2006, systolic CHF with EF of 45%, DM, Hyppertension, PAD s/p stent on the right leg, neuropathy, hyperlipidemia, obesity, The first episode happened on 09/01/19 she was laying in bed watching tv and talking over the phone when she turned to the side to put the phone down when she passed out for few seconds but in that time she had knocked over the table and things on the table and hit her head on the side table. prior to the episode she felt like a black screen coming down over her eyes. Second episode happed this am at 6 o clock . She had gotten up and had gone to the bathroom. She had turned around pushed down her pants and was going to sit on the commode when she passed out. Next thing she knows is her grandson yelling at her and she was on the bathroom floor with pants still down. No loss of bowel or bladder control. SHe says she was passed out for about 10 mins. Denied any recent illness, denied any recent change in medications. She was admitted for evaluation for recurrent Syncope. Recurrent Syncope monitor under telemetry for [address] Hackett in view of the preexisting heart disease for any cardiac arrhythmia. Dr Hackett wants her to go to his office immediately after discharge from the hospital on 09/06/19 and get an event monitor. carotid US negative for significant obstruction. Echo from Dr Hackett shows regional wall motion abnormality in the inferior wall and Ef of 45%. Stress test shows fixed deformity of the inferior wall. orthostatic vitals negative. H/O CAD with inferior wall AMi in 2006 she had temporary heart block during that time. PAD s/p right SFA stenting and right anterior tibial artery angioplasty with chronic obstruction of left superficial femoral artery. left leg angiography on 09/04/19 COVID-19 negative. cont asa and plavix. Chronic Systolic CHF with EF of 45% no fluid overload at this time not on any diuretics continue ACEI Diabetes with neuropathy and retinopathy continue levemir and lispro and gabapentin. hold metformin hyperlipidemia continue ezitimibe Obesity Hypertension continue home Tobacco use disorder counselled about quitting smoking. DISCHARGE MEDICATIONS: Please see below. ALLERGIES: Please see below. PHYSICAL EXAMINATION ON DISCHARGE: VITAL SIGNS: Please see below. General Exam: Positive: Alert, Cooperative, No Acute Distress Eye Exam: Positive: PERRLA, Conjunctiva & lids normal, EOMI; Negative: Sclera icteric ENT Exam: Positive: Atraumatic, Mucous membr. moist/pink, Pharynx Normal Neck Exam: Positive: Supple; Negative: JVD, thyromegaly Chest Exam: Positive: Clear to auscultation, Normal air movement Heart Exam: Positive: Rate Normal, Regular Rhythm, Normal S1, Normal S2; Negative: Murmurs, Rubs Telemetry: Positive: No significant arrhythmia Abdomen Exam: Positive: Normal bowel sounds, Soft; Negative: Tenderness, Hepatospenomegaly Extremity Exam: Negative: Clubbing, Cyanosis, Edema Skin Exam: Positive: Nl turgor and temperature; Negative: Breakdown, Lesion LABORATORY DATA: Please see below. ACTIVITY: [As tolerated]. DIET: Carb consistent diet DISPOSITION: Home, Self-Care. DISCHARGE INSTRUCTIONS: PMD [address] Hackett on 09/06/19 Dr Velásquez as per outpatient schedule DISCHARGE CONDITION: [Stable]. TIME SPENT ON DISCHARGE: 35 minutes. Vital Signs/I&Os Vital Signs Date Time Temp Pulse Resp B/P (MAP) Pulse Ox O2 Delivery O2 Flow Rate FiO2 09/05/19 09:03 81 169/86 09/05/19 07:27 97.5 94 09/05/19 04:00 16 Room Air 09/04/19 11:30 2 I&O- Last 24 Hours up to 6 AM 09/05/19 06:00 Intake Total 1360 ml Output Total 2400 ml Balance -1040 ml Laboratory Data Labs 24H Laboratory Tests 2 09/04/19 16:29: Bedside Glucose (Misc Panel) 188H 09/04/19 19:52: Bedside Glucose (Misc Panel) 199H 09/05/19 05:26: Immature Granulocyte % (Auto) 0.4, Neutrophils (%) (Auto) 57.2, Lymphocytes (%) (Auto) 28.0, Monocytes (%) (Auto) 11.4H, Eosinophils (%) (Auto) 2.6, Basophils (%) (Auto) 0.4, Neutrophils # (Auto) 4.0, Lymphocytes # (Auto) 1.9, Monocytes # (Auto) 0.8, Eosinophils # (Auto) 0.2, Basophils # (Auto) 0.0, Nucleated Red Blood Cells % (auto) 0.0, Anion Gap 6L, Glomerular Filtration Rate > 60.0, Calcium Level 8.8 CBC/BMP Laboratory Tests 09/05/19 05:26 FSBS Laboratory Tests Test 09/04/19 16:29 09/04/19 19:52 Range/Units Bedside Glucose (Misc Panel) 188 199 80-115 MG/DL Discharge Medications Scheduled Amlodipine Besylate (Amlodipine Besylate) 5 Mg Tab, 5 MG PO DAILY, (Reported) Aspirin (Aspirin EC) 81 Mg Tablet.dr, 81 MG PO DAILY, (Reported) Clopidogrel Bisulfate (Plavix) 75 Mg Tablet, 75 MG PO DAILY, (Reported) Ezetimibe (Ezetimibe) 10 Mg Tab, 10 MG PO DAILY, (Reported) Gabapentin (Gabapentin) 100 Mg Capsule, 100 MG PO TID, (Reported) Insulin Glargine,Hum.rec.anlog (Basaglar Kwikpen U-100) 100 Unit/1 Ml Insuln.pen, 35 UNITS SC QHS, (Reported) Insulin Lispro (Admelog) 100 Unit/1 Ml Vial, 1 DOSE SC AC, (Reported) PER SLIDING SCALE Lisinopril (Lisinopril) 40 Mg Tablet, 40 MG PO DAILY, (Reported) Metformin HCl (Metformin HCl ER) 500 Mg Tab.er.24h, 500 MG PO BID, (Reported) Varenicline Tartrate (Chantix) 1 Mg Tablet, 1 MG PO BID, (Reported) Venlafaxine HCl (Venlafaxine HCl ER) 37.5 Mg Cap.er.24h, 37.5 MG PO DAILY, (Reported) Scheduled PRN Ammonium Lactate (Ammonium Lactate) 12% Lotion, 1 DOSE TOP DAILY PRN for DRY SKIN, (Reported) APPLY TO LEFT FOOT Tizanidine HCl (Tizanidine HCl) 2 Mg Tablet, 2 MG PO TID PRN for SPASMS, (Reported) Allergies Coded Allergies: atorvastatin (Verified Adverse Reaction, Intermediate, leg cramps/weakness, 11/22/18) codeine (Verified Adverse Reaction, Unknown, vomiting, 11/22/18) PRIETO MIKE MD September 05, 2019 13:18
== END 2019-09-05 12:06 | disposition home or self-care (01) ==
LOC: M ED 10:03 → M PCU 10:04 → ENRESERV 12:03
PROVIDERS: ADMIT Internal Medicine Nephrology; ATTEND Internal Medicine Nephrology
DX: R55 Syncope and collapse (principal); I70.212 Atherosclerosis of native arteries of extremities with intermittent claudication, left leg; I70.222 Atherosclerosis of native arteries of extremities with rest pain, left leg; I70.92 Chronic total occlusion of artery of the extremities; I44.0 Atrioventricular block, first degree; I25.10 Atherosclerotic heart disease of native coronary artery without angina pectoris; I25.2 Old myocardial infarction; I11.9 Hypertensive heart disease without heart failure; I50.22 Chronic systolic (congestive) heart failure; E11.40 Type 2 diabetes mellitus with diabetic neuropathy, unspecified; E11.319 Type 2 diabetes mellitus with unspecified diabetic retinopathy without macular edema; Z95.820 Peripheral vascular angioplasty status with implants and grafts; E78.5 Hyperlipidemia, unspecified; E66.9 Obesity, unspecified; Z68.39 Body mass index [BMI] 39.0-39.9, adult; J44.9 Chronic obstructive pulmonary disease, unspecified; K57.90 Diverticulosis of intestine, part unspecified, without perforation or abscess without bleeding; Z87.19 Personal history of other diseases of the digestive system; F32.9 Major depressive disorder, single episode, unspecified; M54.9 Dorsalgia, unspecified; F17.210 Nicotine dependence, cigarettes, uncomplicated; Z88.8 Allergy status to other drugs, medicaments and biological substances; Z88.5 Allergy status to narcotic agent; Z79.899 Other long term (current) drug therapy; Z79.82 Long term (current) use of aspirin; Z79.02 Long term (current) use of antithrombotics/antiplatelets; Z79.4 Long term (current) use of insulin
CPT/HCPCS: 36200; 36247; 36415; 70450; 71045; 72125; 75630; 75774; 80048; 82550; 82553; 83735; 84439; 84443; 85025; 93005; 93041; 93306; 93880; 93970; 99152; 99153; 99285; C1760; C1769; C1887; C1894; J1644; J2250; J3010; Q9967; U0002

== ENCOUNTER → 2019-09-17 | Outpatient (CLI) | payer OTHER ==
[~2019-09-17] MED LIST changes: +AMMO12LO TOP; +CHAN1PAK13 PO; +GABA-1171 PO; +GABA-845 PO; -LIDOCAINE 1% MDV 20ML VIAL ONE; +METF-838 PO; -MIDAZOLAM INJ 2MG/2ML VIAL (J2250 PER 1MG) ONE; +PLAV1TAB2 PO; +TIZA2TA PO; +VENL37.52 PO; +[UNRECOGNIZED DRUG - OTHER]; -fentaNYL 100 MCG/2 ML INJECTION (J3010) ONE
--- NOTE | 2019-09-17 14:56 | REP ---
MRI LUMBAR SPINE WITHOUT CONTRAST: HISTORY: Lumbago with sciatica on the left side. Comparison lumbar spine radiographs are from September 02, 2019. Comparison MRI study is from October 22, 2002. TECHNIQUE: Sagittal and axial T1- and T2-weighted scans are acquired in the usual fashion with and without fat saturation. Sequences include spin echo, turbo spin-echo, and STIR imaging sequences. MRI FINDINGS: Lumbar vertebral body heights are preserved. Pedicles and posterior elements are intact. There is no evidence of spondylolysis. There is degenerative disc disease however at L4-5 and a grade 1 degenerative L4-5 2.5 mm spondylolisthesis is seen. There is facet hypertrophy and osteoarthritis at L4-5. There is mild diffuse disc bulging. The combination of these factors produces moderate to marked central canal stenosis. This is more pronounced than on the 2002 prior study. There is bulging of the foraminal segment of the disc margin on the left producing mild neural foraminal encroachment. The mid line AP dimension of the thecal sac at L4-5 is 6.7 mm. At L5-S1, there is mild central disc bulging. There is facet and ligamentum flavum hypertrophy bilaterally but no central canal stenosis or foraminal narrowing is seen. At L3-4, L2-3, and L1-2, there is no evidence of disc protrusion, spinal stenosis, or foraminal narrowing. There is minimal central disc bulging of the T12-L1 disc. IMPRESSION: Degenerative disc and osteoarthritic facet disease at L4-5 with diffuse disc bulging, facet hypertrophy, and ligamentum flavum hypertrophy producing moderate to marked central canal stenosis. There is mild left-sided foraminal encroachment. Electronically Signed by Carlos Shepherd MD 09/17/2019 06:48 P
== END ==
LOC: M RAD 11:00
PROVIDERS: ATTEND Physician Assistant Medical
DX: M54.41 Lumbago with sciatica, right side (principal)

== ENCOUNTER → 2020-01-22 | Outpatient (CLI) | payer OTHER ==
[~2020-01-22] MED LIST changes: +AMLO1TAB24 PO; -AMLO5TAB6 PO
[2020-01-22 14:11] LABS: BASO # 0.1 10^3/uL (0.0-0.2); BASO % 0.8 % (0.0-1.0); EOS # 0.1 10^3/uL (0.0-0.5); HEMATOCRIT 53.8 % (36.0-47.0); HEMOGLOBIN 17.9 g/dl (12.0-15.5); LYMPH # 2.1 10^3/uL (1.5-5.0); LYMPH % 26.7 % (24.0-44.0); MEAN CORPUSCULAR HGB CONC 33.3 g/dl (32.0-36.5); MEAN CORPUSCULAR VOLUME 96.1 fl (80.0-96.0); MONO # 0.8 10^3/uL (0.0-0.8); MONO % 9.8 % (0.0-5.0); NEUTROPHILS # 4.7 10^3/uL (1.5-8.5); NEUTROPHILS % 60.9 % (36.0-66.0); PLATELET COUNT, AUTOMATED 169 10^3/uL (150-450); WHITE BLOOD COUNT 7.7 10^3/uL (4.0-10.0)
[2020-01-22 14:47] LABS: ALBUMIN 3.6 GM/DL (3.2-5.2); ALT/SGPT 16 U/L (12-78); BILIRUBIN,TOTAL 0.5 MG/DL (0.2-1.0); BLOOD UREA NITROGEN 18 MG/DL (7-18); CALCIUM LEVEL 8.7 MG/DL (8.8-10.2); CARBON DIOXIDE LEVEL 30 MEQ/L (21-32); CHLORIDE LEVEL 101 MEQ/L (98-107); CHOLESTEROL LEVEL 172 MG/DL (<200); CREATININE FOR GFR 0.79 MG/DL (0.55-1.30); FREE T4 1.08 NG/DL (0.76-1.46); GLOMERULAR FILTRATION RATE > 60.0 (>45); GLUCOSE, FASTING 301 MG/DL (70-100); HDL CHOLESTEROL 63 MG/DL (>40); LDL CHOLESTEROL 84 MG/DL (<100); NON-HDL-C 109 MG/DL; POTASSIUM SERUM 4.6 MEQ/L (3.5-5.1); SODIUM LEVEL 137 MEQ/L (136-145); TOTAL PROTEIN 6.5 GM/DL (6.4-8.2); TRIGLYCERIDES LEVEL 123 MG/DL (<150)
[2020-01-22 14:49] LABS: HEMOGLOBIN A1c 12.2 %
== END ==
LOC: M PLALAB 12:00
PROVIDERS: ATTEND Physician Assistant Medical
DX: I25.10 Atherosclerotic heart disease of native coronary artery without angina pectoris (principal); I10 Essential (primary) hypertension; E11.51 Type 2 diabetes mellitus with diabetic peripheral angiopathy without gangrene; R55 Syncope and collapse; I73.9 Peripheral vascular disease, unspecified

== ENCOUNTER → 2020-01-28 | Outpatient (CLI) | payer OTHER ==
--- NOTE | 2020-02-05 08:59 | REP ---
BILATERAL LOWER EXTREMITY ARTERIAL DOPPLER ULTRASOUND HISTORY: Atherosclerosis. Intermittent claudication bilateral lower extremities. FINDINGS: Ankle brachial indices are measured at 0.6 on the right and 0.8 on the left, previously 0.9 and 0.6 on the right and left respectively. On the right, an occluded stent is seen from superficial femoral artery proximally to mid superficial femoral. Monophasic waveforms are noted at and distal to the popliteal on the right. The left superficial femoral artery is occluded at mid superficial femoral artery (SFA) level with a collateral seen reconstituting the distal SFA. Monophasic waveforms are noted in the left lower extremity distal to this. Extensive plaquing is again seen. VELOCITY CHART BILATERAL LOWER EXTREMITIES RIGHT (cm/s) LEFT (cm/s) ACCOUNTING TEACHER 80 71 Profunda 166 83 Proximal SFA occluded 47 Mid SFA occluded occluded Distal SFA occluded 94 Popliteal 23 32 Proximal MAGDALENE 20 33 Tibioperoneal trunk 30 30 Proximal TELLER 28 20 Distal TELLER 11 occluded Distal MAGDALENE 22 40 MTDD
== END ==
LOC: M RAD 10:26
PROVIDERS: ATTEND Physician Assistant
DX: I70.213 Atherosclerosis of native arteries of extremities with intermittent claudication, bilateral legs (principal); Z95.828 Presence of other vascular implants and grafts

== ENCOUNTER → 2020-03-04 | Outpatient (CLI) | payer OTHER ==
[~2020-03-04] MED LIST changes: +ACETAMINOPHEN 325 MG TAB As Ordered ONE; +ACETAMINOPHEN TAB 650MG DOSE (2X325MG) PO PRN; +ISOVUE-300 61% 50ML VIAL As Ordered ONE; +LIDOCAINE 1% MDV 20ML VIAL As Ordered ONE; +MIDAZOLAM INJ 2MG/2ML VIAL (J2250 PER 1MG) As Ordered ONE; +NS 1,000 ML IV SCH; +fentaNYL 100 MCG/2 ML INJECTION (J3010) As Ordered ONE
[2020-03-04 09:10] LABS: HEMATOCRIT 49.5 % (36.0-47.0); HEMOGLOBIN 15.4 g/dl (12.0-15.5); MEAN CORPUSCULAR HEMOGLOBIN 30.7 pg (27.0-33.0); MEAN CORPUSCULAR HGB CONC 31.1 g/dl (32.0-36.5); MEAN CORPUSCULAR VOLUME 98.6 fl (80.0-96.0); PLATELET COUNT, AUTOMATED 206 10^3/uL (150-450); RED BLOOD COUNT 5.02 10^6/uL (4.00-5.40); WHITE BLOOD COUNT 8.5 10^3/uL (4.0-10.0)
[2020-03-04 09:43] LABS: BLOOD UREA NITROGEN 16 MG/DL (7-18); CALCIUM LEVEL 9.1 MG/DL (8.8-10.2); CARBON DIOXIDE LEVEL 33 MEQ/L (21-32); CHLORIDE LEVEL 106 MEQ/L (98-107); CREATININE FOR GFR 0.74 MG/DL (0.55-1.30); GLOMERULAR FILTRATION RATE > 60.0 (>45); GLUCOSE, FASTING 175 MG/DL (70-100); POTASSIUM SERUM 4.3 MEQ/L (3.5-5.1); SODIUM LEVEL 140 MEQ/L (136-145)
--- NOTE | 2020-03-04 11:21 | ROOPDOC ---
[facility] Report Of Operation Report of Operation DATE OF PROCEDURE: 03/04/20 PREPROCEDURE DIAGNOSES: Atherosclerosis of the robinson arteries with recurrent symptoms right lower extremity progressing to rest pain POSTPROCEDURE DIAGNOSES: Same PROCEDURE: 1. Ultrasound-guided access left common femoral artery 2. Aortoiliofemoral arteriogram and oblique views right iliac vessels 3. Selection right common femoral artery and right lower extremity arteriogram with runoff 4. Cross chronic total occlusion right superficial femoral artery and selection popliteal artery with arteriogram 5. Angioplasty right superficial femoral artery with 6 x 200 Verplanck balloon 6. Completion arteriograms 7. Mynx closure left common femoral artery SURGEON: Valarie Steiner MD ANESTHESIA: Local anesthesia 7 mL lidocaine. Moderate intravenous conscious sedation was supervised by Dr. Steiner. The patient was independently monitored by registered nurse assigned to the Department of radiology using aut omated blood pressure, EKG, and pulse oximetry. The detailed sedation record is primarily stored in the hospital information system. The following is a brief sedation record: Start time 09:58, stop time 10:37, Versed 1 mg IV, fentanyl 50 g IV, heparin 3000 units IV. CONTRAST: 26 mL Isovue-300 INDICATION FOR PROCEDURE: This is a very pleasant 59-year-old patient with severe bilateral lower extremity atherosclerosis the robinson arteries that has been highly symptomatic and difficult to treat due to severity of her disease as well as an inability to make lifestyle changes including increasing activity and ambulation, weight loss, smoking cessation, better dietary choices, good control of her diabetes. She returns with worsening symptoms in her right lower ext remity again status post intervention with stenting of her SFA in June. Risks benefits alternatives to an arteriogram with potential intervention were explained to the patient. I did discuss with her that it is likely after this procedure we may recommend a bypass rather than further endovascular options. This is a difficult choice for me as I know the patient is an extremely high risk open surgical patient due to morbid obesity, diabetes, heavy tobacco use, and other medical comorbidities, but I do not think her disease will have a long-standing improvement with endovascular efforts alone. We have had extensive conversations about the need for lifestyle changes for long-term limb preservation, but so far the patient has been persistently resistant to these discussions. Informed consent for today's procedure was obtained. INTERPRETATION: 1. Aortoiliofemoral segments are calcified but widely patent except for a focal stenosis just proximal to the origin of the right common iliac artery that is not significantly flow-limiting. 2. Right common femoral artery has some calcification that is patent with good runoff into the profunda. The SFA has a flush occlusion at the origin and does not reconstitute until Hugh's canal where there are good collaterals from the profunda filling below the knee. There is a very proximal origin of the anterior tibial artery at the mid knee and along tibioperoneal trunk that is widely patent with peroneal and posterior tibial runoff to the ankle and foot. 3. After crossing the chronic total occlusion in the superficial femoral artery, we were able to angioplasty with a 6 x 200 Verplanck balloon. This opened up the vessel, but I am not sure for how long. I do not think restenting is going to be helpful. For now, the patient has in-line flow to the foot with no signs of embolization. REPORT OF OPERATION: The patient was brought to the angiographic suite in stable condition. Her bilateral groins were prepped and draped in a sterile fashion. A timeout was performed. Sedation was ministered without complication. Local anesthesia was administered to the skin and subcutaneous tissue over the left groin. A microneedle was used to access the artery under ultrasound guidance. A wire was passed through this access and the needle was removed. A 4 Ghanaian sheath was placed and flushed with saline. A Glidewire and flushing catheter were advanced into the distal aorta. Aortoiliofemoral arteriograms were performed. Please see interpretation above. We went up and over the bifurcation selected the right common femoral artery. Right lower extremity runoff was performed. Please see interpretation above. We then exchanged sheath over the wire for a 6 x 45 cm destination sheath. Selection views of the right iliac system were performed through the sheath was selection of the right common iliac artery, please see interpretation above. Then advanced the sheath to the right common femoral artery and a Maddock catheter over the Glidewire was used to carefully cross through the occluded right superficial femoral artery stents. This took a bit of time, but eventually we were able to cross through" contrast injection was selection of the popliteal artery confirmed we were in the true lumen. We angioplasty along length the vessel with a 6 x 200 Verplanck balloon for three-minute inflations and following this, there was widely patent flow through the vessel. I did not feel restenting would be helpful at this time. We then exchanged the sheath for short 6 Ghanaian sheath and flushed the sheath with saline. Mynx closure device was deployed with good hemostasis. Pressure was held for 10 minutes and sterile dressings were applied. The patient was taken to recovery in stable condition. She tolerated the procedure and the sedation well. ESTIMATED BLOOD LOSS: Approximately 5 mL. COMPLICATIONS: None. PLAN: Okay to resume home diet and medications. No lifting greater than 5 pounds or strenuous activity for 48 hours postprocedure. Okay to shower and remove dressing tomorrow. Follow up in clinic in 1 week to discuss options for right lower extremity bypass. The patient had a vein mapping previously while considering a bypass for left lower extremity, and does not have suitable saphenous vein for bypass. This is unfortunate, as utilizing a non-autologous conduit also diminishes her c hances for long-term success with bypass, along with chronic tobacco abuse, obesity, poor diabetes control, and limited ambulation and activity. On the right, the patient has a suitable target below the knee at the tibioperoneal trunk. She will get retrograde flow up through the tibioperoneal trunk into the anterior tibial artery at the mid knee, and antegrade flow into the peroneal and posterior tibial artery which are her best runoff. However, this is a somewhat smaller vessel, which may make it challenging to utilize a PTFE graft. We will discuss with her options for a right femoral endarterectomy, right femoral to below-knee tibioperoneal trunk bypass with likely cadaver vein versus PTFE. On the left, the patient has an option for a femoral endarterectomy and femoral to above-knee popliteal bypass, which will likely be suitable for PTFE. We will give her all of her options and further recommendations to follow. We appreciate the opportunity to participate in the care of this patient. VALARIE STEINER MD Mar 04, 2020 11:21
[2020-03-04 14:27] VITALS: BP 154/71
== END ==
LOC: M IRPRO 08:33
PROVIDERS: ATTEND Surgery Vascular Surgery
DX: I70.221 Atherosclerosis of native arteries of extremities with rest pain, right leg (principal); I70.202 Unspecified atherosclerosis of native arteries of extremities, left leg; I70.92 Chronic total occlusion of artery of the extremities; F17.210 Nicotine dependence, cigarettes, uncomplicated
CPT/HCPCS: 37224; 75630; 75774; 80048; 85027; 99152; 99153; C1725; C1760; C1769; C1887; C1894; J1644; J2250; J3010; Q9967

== ENCOUNTER → 2020-04-26 | Outpatient (REF) | payer OTHER ==
[~2020-04-26] MED LIST changes: -ACETAMINOPHEN 325 MG TAB As Ordered ONE; -ACETAMINOPHEN TAB 650MG DOSE (2X325MG) PO PRN; -ISOVUE-300 61% 50ML VIAL As Ordered ONE; -LIDOCAINE 1% MDV 20ML VIAL As Ordered ONE; -MIDAZOLAM INJ 2MG/2ML VIAL (J2250 PER 1MG) As Ordered ONE; -NS 1,000 ML IV SCH; -fentaNYL 100 MCG/2 ML INJECTION (J3010) As Ordered ONE
== END ==
LOC: M LAB REF 13:05
PROVIDERS: ATTEND Internal Medicine Gastroenterology
DX: R19.7 Diarrhea, unspecified (principal)

== ENCOUNTER → 2020-05-04 | Outpatient (REF) | payer OTHER ==
[2020-05-04 16:52] LABS: HEMOGLOBIN A1c 7.8 %
== END ==
LOC: M SFHCPLAZ 12:27
PROVIDERS: ATTEND Physician Assistant Medical
DX: E11.8 Type 2 diabetes mellitus with unspecified complications (principal)

== ENCOUNTER → 2020-05-15 | Outpatient (CLI) | payer OTHER ==
--- NOTE | 2020-05-15 16:05 | REP ---
INDICATION: ATHSCL RAPPAHANNOCK ARTERIES OF EXTRM W INTRMT TYRONE,BI LEGS COMPARISON: 01/28/2020. TECHNIQUE: Real time roberson scale and Duplex Doppler evaluation of the bilateral lower extremity arterial vasculature using linear high frequency transducer. FINDINGS: Roberson scale and duplex doppler images demonstrate improved arterial perfusion of the right lower extremity. The arterial system of the left lower extremity appears unchanged. LAY right 1.0. Patent right superficial femoral artery stent is noted. Collateral arterial structure is visualized at the right posterior tibial artery distally. There are diffuse triphasic and biphasic waveforms except for monophasic waveforms throughout the posterior tibial artery. Severe plaque is seen in the left lower extremity arterial structures with occlusion of the mid left superficial femoral artery. Collateral vessels from the proximal superficial femoral artery reconstitute the distal superficial femoral artery. Biphasic waveforms are seen in the left common femoral and proximal superficial femoral arteries with monophasic waveforms more distally. Peak systolic velocities (cm/sec) Common femoral artery: Right 123; Left 53 Profunda femoris: Right 116; Left 130 SFA (proximal): Right 74; Left 80 SFA (mid): Right 97; Left occluded SFA (distal): Right 170; Left 83 Popliteal artery: Right 70; Left 59 MAGDAELNE (prox.): Right 93; Left 17 Tibioperoneal trunk: Right 117; Left 42 INFORMATION SERVICES MANAGER (prox.): Right 21; Left 24 INFORMATION SERVICES MANAGER (distal): Right 75; Left 32 MAGDALENE (distal): Right 95; Left 69 IMPRESSION: Patent stent right SFA. Improved perfusion right lower extremity arterial structures. Occlusion mid left SFA with reconstitution of distal left SFA. <Electronically signed by Cipriano Roberson > 05/15/20 [id number]
== END ==
LOC: M RAD 10:27
PROVIDERS: ATTEND Physician Assistant
DX: I70.213 Atherosclerosis of native arteries of extremities with intermittent claudication, bilateral legs (principal); Z95.820 Peripheral vascular angioplasty status with implants and grafts

== ENCOUNTER → 2020-05-28 | Outpatient (CLI) | payer OTHER ==
[2020-05-28 13:43] LABS: HEMATOCRIT 51.9 % (36.0-47.0); HEMOGLOBIN 16.6 g/dl (12.0-15.5); MEAN CORPUSCULAR HEMOGLOBIN 31.1 pg (27.0-33.0); MEAN CORPUSCULAR VOLUME 97.2 fl (80.0-96.0); PLATELET COUNT, AUTOMATED 164 10^3/uL (150-450); RED BLOOD COUNT 5.34 10^6/uL (4.00-5.40); WHITE BLOOD COUNT 7.6 10^3/uL (4.0-10.0)
[2020-05-28 15:03] LABS: ALBUMIN 3.5 GM/DL (3.2-5.2); ALT/SGPT 20 U/L (12-78); BILIRUBIN,TOTAL 0.3 MG/DL (0.2-1.0); BLOOD UREA NITROGEN 22 MG/DL (7-18); CALCIUM LEVEL 9.1 MG/DL (8.8-10.2); CARBON DIOXIDE LEVEL 30 MEQ/L (21-32); CHLORIDE LEVEL 106 MEQ/L (98-107); CREATININE FOR GFR 0.75 MG/DL (0.55-1.30); GLOMERULAR FILTRATION RATE > 60.0 (>45); GLUCOSE, FASTING 151 MG/DL (70-100); NT-PRO BNP 122 PG/ML (<125); POTASSIUM SERUM 4.6 MEQ/L (3.5-5.1); SODIUM LEVEL 140 MEQ/L (136-145); TOTAL PROTEIN 6.8 GM/DL (6.4-8.2)
== END ==
LOC: M PLALAB 09:37
PROVIDERS: ATTEND Internal Medicine Cardiovascular Disease
DX: I50.42 Chronic combined systolic (congestive) and diastolic (congestive) heart failure (principal)

== ENCOUNTER → 2020-07-29 | Outpatient (REF) | payer OTHER ==
[~2020-07-29] MED LIST changes: -LISI-538; +LISI20TA33; -LISI40TA PO; +LISI40TA4 PO
[2020-07-29 14:17] LABS: BASO # 0.1 10^3/uL (0.0-0.2); BASO % 0.7 % (0.0-1.0); EOS # 0.2 10^3/uL (0.0-0.5); EOS % 2.2 % (0.0-3.0); HEMATOCRIT 48.5 % (36.0-47.0); HEMOGLOBIN 15.7 g/dl (12.0-15.5); LYMPH # 2.3 10^3/uL (1.5-5.0); LYMPH % 30.7 % (24.0-44.0); MEAN CORPUSCULAR HEMOGLOBIN 31.1 pg (27.0-33.0); MEAN CORPUSCULAR HGB CONC 32.4 g/dl (32.0-36.5); MONO # 0.9 10^3/uL (0.0-0.8); MONO % 12.6 % (2.0-8.0); NEUTROPHILS # 3.9 10^3/uL (1.5-8.5); NEUTROPHILS % 53.1 % (36.0-66.0); PLATELET COUNT, AUTOMATED 175 10^3/uL (150-450); RED BLOOD COUNT 5.05 10^6/uL (4.00-5.40); WHITE BLOOD COUNT 7.4 10^3/uL (4.0-10.0)
[2020-07-29 14:27] LABS: INR 0.85; PARTIAL THROMBOPLASTIN TIME 30.1 SECONDS (24.2-38.5); PROTHROMBIN TIME 11.8 SECONDS (12.5-14.3)
[2020-07-29 14:49] LABS: ALBUMIN 3.5 GM/DL (3.2-5.2); ALT/SGPT 19 U/L (12-78); BILIRUBIN,TOTAL 0.3 MG/DL (0.2-1.0); BLOOD UREA NITROGEN 25 MG/DL (7-18); CALCIUM LEVEL 8.8 MG/DL (8.8-10.2); CARBON DIOXIDE LEVEL 31 MEQ/L (21-32); CHLORIDE LEVEL 107 MEQ/L (98-107); CREATININE FOR GFR 0.78 MG/DL (0.55-1.30); GLOMERULAR FILTRATION RATE > 60.0 (>45); GLUCOSE, FASTING 257 MG/DL (70-100); NT-PRO BNP 206 PG/ML (<125); POTASSIUM SERUM 4.7 MEQ/L (3.5-5.1); SODIUM LEVEL 141 MEQ/L (136-145); TOTAL PROTEIN 6.4 GM/DL (6.4-8.2)
[2020-07-29 15:59] LABS: VITAMIN B12 LEVEL 858 PG/ML (247-911)
[2020-07-31 12:09] LABS: ALBUMIN 3.85 GM/DL (3.29-5.55); ALBUMIN % 60.2 % (55.8-66.1); ALPHA-1-GLOBULIN % 4.3 % (2.9-4.9); ALPHA-1-GLOBULINS 0.28 GM/DL (0.17-0.41); ALPHA-2-GLOBULINS 0.72 GM/DL (0.42-0.99); ALPHA-2-GLOBULINS % 11.3 % (7.1-11.8); BETA-1-GLOBULINS 0.42 GM/DL (0.28-0.60); BETA-1-GLOBULINS % 6.5 % (4.7-7.2); BETA-2-GLOBULINS 0.32 GM/DL (0.19-0.55); GAMMA GLOBULIN % 12.7 % (11.1-18.8); GAMMA GLOBULINS 0.81 GM/DL (0.65-1.58)
== END ==
LOC: M SFHCPLAZ 10:11
PROVIDERS: ATTEND Family Medicine
DX: I10 Essential (primary) hypertension (principal); D75.89 Other specified diseases of blood and blood-forming organs

== ENCOUNTER → 2020-07-29 | Outpatient (CLI) | payer OTHER | LOC: M LABSMTC 09:54 | PROVIDERS: ATTEND Anesthesiology | DX: Z01.812 Encounter for preprocedural laboratory examination (principal); Z20.822 Contact with and (suspected) exposure to COVID-19 ==

== ENCOUNTER 2020-08-03 06:09 | Inpatient (IN) | payer OTHER ==
--- NOTE | 2020-07-17 15:23 | HPEPDOC ---
[facility] Medical History & Physical Date of Admission Aug 03, 2020 Date of Service: Aug 03, 2020 History and Physical Vascular surgery. Dr. Steiner HISTORY OF PRESENT ILLNESS: The patient is a 59-year-old female with peripheral vascular disease and lifestyle limiting claudication in the bilateral lower ext remity, right greater than left. Dr. Steiner attempted revascularization endovascularly, but could not open up the blockages in the bilateral SFA arteries. On the right, she is proceeding with femoral endarterectomy and a right femoral to below-knee popliteal bypass, and does not have greater saphenous vein so Dr. Steiner prefers to use cadaver vein for a below-knee bypass. Dr. Steiner has discussed with the patient that she is high risk for surgery due to obesity, diabetes, and her tobacco use. Patient states she recently quit smoking but she has multiple smokers in the house which is making her cessation challenging. Plan is to proceed with right femoral endarterectomy and femoral below-knee popliteal bypass with cadaver vein. The patient has been extensively counseled and all questions have been answered as discussed with Dr. Steiner. PAST MEDICAL HISTORY: PAD Hypertension DM 2 CAD/KS 2004 Depression Obesity. BMI 39.0 PAST SURGICAL HISTORY: Colonoscopy Cyst removal Cardiac stent 2006 Cholecystectomy Angiogram lower extremities SOCIAL HISTORY: Long-standing smoker but states she recently quit. FAMILY HISTORY: Hypertension, CAD ALLERGIES: Please see below. REVIEW OF SYSTEMS: Const: Denies chills, fever, weight gain and weight loss. Eyes: Denies new vision changes. ENMT: Denies hearing loss. Denies congestion. Denies dysphagia. CV: Reports CAD and hypertension, but denies chest pain and palpitations. Resp: Reports shortness of breath, but denies cough and hemoptysis. GI: Denies abdominal pain, constipation, diarrhea, nausea and vomiting. Musculo: Reports intermittent claudication and trouble walking, but denies myalgia and pain. Skin: Denies skin cancer, rash and wound. Neuro: Denies focal deficit, headache and seizures. Psych: Denies anxiety and depression. Endocrine: Reports diabetes but denies hyperthyroidism and hypothyroidism. Aidan/Lymph: Denies anemia and excessive bruising. HOME MEDICATIONS: Please see below. PHYSICAL EXAMINATION: Const: Appears medically stable. No signs of apparent distress present. Head/Face: Normal on inspection. ENMT: Tympanic membranes: intact. External nose WNL. Neck: Supple, no carotid bruits present Resp: No wheezing. slightly coarse breath sounds bilaterally CV: Rate is regular. Rhythm is regular. Abdomen: Bowel sounds are positive. Obese. Abdomen is soft, nontender, and nondistended. Lymph: No palpable or visible regional lymphadenopathy. Musculo:Gait steady, distal pulses not palpable but DP and PT signals are monophasic. Skin:No rashes or lesions Neuro:Alert and oriented x3, moves all extremities equally, no focal neurologic deficits noted. Psych: Pleasant and cooperative ASSESSMENT/PLAN: Atherosclerosis tonawanda vessels lower extremity/Right femoral endarterectomy and femoral below-knee popliteal bypass with cadaver vein as per Dr. Steiner 08/03/20. The procedure, risks, benefits and alternatives have been extensively reviewed with the patient as per Dr. Steiner. Informed consent is obtained and placed in the chart. Transfusion consent is obtained and placed in the chart Medical and cardiac clearance has been requested. The patient is advised to hold Plavix for 5 days prior to the procedure. Patient is advised not to hold aspirin for the procedure. Admission labs to include CBC, BMP, INR, PTT, type and screen. IV fluids per anesthesia Ancef 2 g IV preoperatively. Tobacco use. The patient is strongly encouraged to continue with smoking cessation. BMI 39.0 complicates care. Vital Signs Admission vital signs pending. Laboratory Data Labs 24H Admission labs pending. Home Medications Scheduled Amlodipine Besylate (Amlodipine Besylate) 5 Mg Tab, 5 MG PO DAILY Aspirin (Aspirin EC) 81 Mg Tablet.dr, 81 MG PO DAILY Clopidogrel Bisulfate (Plavix) 75 Mg Tablet, 75 MG PO DAILY Ezetimibe (Ezetimibe) 10 Mg Tab, 10 MG PO DAILY Gabapentin (Gabapentin) 100 Mg Capsule, 100 MG PO TID Insulin Glargine,Hum.rec.anlog (Basaglar Kwikpen U-100) 100 Unit/1 Ml Insuln.pen, 35 UNITS SC QHS Insulin Lispro (Admelog) 100 Unit/1 Ml Vial, 1 DOSE SC AC PER SLIDING SCALE Lisinopril (Lisinopril) 40 Mg Tablet, 40 MG PO DAILY Metformin HCl (Metformin HCl ER) 500 Mg Tab.er.24h, 500 MG PO BID Varenicline Tartrate (Chantix) 1 Mg Tablet, 1 MG PO BID Venlafaxine HCl (Venlafaxine HCl ER) 37.5 Mg Cap.er.24h, 37.5 MG PO DAILY Scheduled PRN Ammonium Lactate (Ammonium Lactate) 12% Lotion, 1 DOSE TOP DAILY PRN for DRY SKIN APPLY TO LEFT FOOT Tizanidine HCl (Tizanidine HCl) 2 Mg Tablet, 2 MG PO TID PRN for SPASMS Allergies Coded Allergies: atorvastatin (Verified Adverse Reaction, Intermediate, leg cramps/weakness, 11/22/18) codeine (Verified Adverse Reaction, Unknown, vomiting, 11/22/18) A-FIB/CHADSVASC A-FIB History Current/History of A-Fib/PAF?: No Rayne Potts Jul 17, 2020 15:23
[~2020-08-03] VITALS: Ht 165.1 cm; Wt 110.6 kg
[2020-08-03] VITALS (7 sets, daily range): BP systolic 118–128; BP diastolic 61–67
[2020-08-03 06:55] LABS: HEMOGLOBIN 15.9 g/dl (12.0-15.5); MEAN CORPUSCULAR HEMOGLOBIN 30.7 pg (27.0-33.0); MEAN CORPUSCULAR HGB CONC 31.8 g/dl (32.0-36.5); MEAN CORPUSCULAR VOLUME 96.5 fl (80.0-96.0); PLATELET COUNT, AUTOMATED 153 10^3/uL (150-450); RED BLOOD COUNT 5.18 10^6/uL (4.00-5.40); WHITE BLOOD COUNT 8.6 10^3/uL (4.0-10.0)
[2020-08-03] MEDS ORDERED: LR 1,000 ML IV ONE (07:00)
[2020-08-03] MEDS ORDERED: ceFAZolin SOD 2 GM in IV 1 EA IV ONE (07:00)
[2020-08-03] MEDS ORDERED: THROMBIN SOLN 20,000 UNITS KIT As Ordered ONE (07:11)
[2020-08-03] MEDS ORDERED: HEPARIN SOD (PORCINE) 5000UNITS/ML 1ML VIAL/SYRINGE As Ordered ONE ×3 (07:12→10:28)
[2020-08-03] MEDS ORDERED: BUPIVACAINE/EPIN 0.5% 30 ML VIAL As Ordered ONE (07:12)
[2020-08-03] MEDS ORDERED: ISOVUE-300 61% 50ML VIAL As Ordered ONE (07:12)
[2020-08-03] MEDS ORDERED: propofoL 200 MG/20 ML VIAL As Ordered ONE (07:13)
[2020-08-03] MEDS ORDERED: ROCURONIUM BROMIDE 50 MG/5 ML VIAL As Ordered ONE ×4 (07:14→10:44)
[2020-08-03] MEDS ORDERED: MIDAZOLAM INJ 2MG/2ML VIAL (J2250 PER 1MG) As Ordered ONE (07:14)
[2020-08-03] MEDS ORDERED: fentaNYL 100 MCG/2 ML INJECTION (J3010) As Ordered ONE ×3 (07:14→10:01)
[2020-08-03] MEDS ORDERED: LIDOCAINE 2% 100MG/5ML SDV (FOR ANES.) As Ordered ONE (07:14)
[2020-08-03 07:16] LABS: INR 0.89; PROTHROMBIN TIME 12.3 SECONDS (12.5-14.3)
[2020-08-03] MEDS ORDERED: ONDANSETRON 4MG/2ML VIAL As Ordered ONE (07:16)
[2020-08-03] MEDS ORDERED: dexameTHASONE 4 MG/ML 1ML VIAL (J1100 PER 1MG) As Ordered ONE (07:16)
[2020-08-03 07:25] LABS: BLOOD UREA NITROGEN 33 MG/DL (7-18); CALCIUM LEVEL 8.8 MG/DL (8.8-10.2); CARBON DIOXIDE LEVEL 30 MEQ/L (21-32); CHLORIDE LEVEL 109 MEQ/L (98-107); CREATININE FOR GFR 0.86 MG/DL (0.55-1.30); GLOMERULAR FILTRATION RATE > 60.0 (>45); GLUCOSE, FASTING 188 MG/DL (70-100); POTASSIUM SERUM 4.8 MEQ/L (3.5-5.1); SODIUM LEVEL 142 MEQ/L (136-145)
[2020-08-03] MEDS ORDERED: LACRILUBE (AKWA TEARS) OPHTH OINT 3.5 GM As Ordered ONE (08:01)
[2020-08-03] MEDS ORDERED: PHENYLephrine 500MCG 5ML (100MCG/ML) SYRINGE As Ordered ONE (08:49)
[2020-08-03] MEDS ORDERED: lisinopriL 40 MG TAB PO SCH (09:00)
[2020-08-03] MEDS ORDERED: ACETAMINOPHEN 1000MG 100ML IV BTL (OFIRMEV) (J0131 PER 10MG) As Ordered ONE (10:45)
[2020-08-03] MEDS ORDERED: SUGAMMADEX SODIUM 500 MG/5 ML VIAL (BRIDION) As Ordered ONE (10:45)
[2020-08-03] MEDS ORDERED: ceFAZolin 2 GM/D5W 50 ML IV BAG (J0690 PER 500MG) As Ordered ONE (11:43)
[2020-08-03] MEDS ORDERED: NYSTATIN CREAM 15 GM TOP ONE (11:45)
[2020-08-03] MEDS: HumaLOG INSULIN (NovoLOG) PER UNIT SC SCH ×3 (12:00→20:26)
--- NOTE | 2020-08-03 12:26 | ROOPDOC ---
[facility] Report Of Operation Report of Operation DATE OF PROCEDURE: 08/03/20 PREPROCEDURE DIAGNOSES: Atherosclerosis in the circle arteries with lifestyle limiting claudication right lower extremity POSTPROCEDURE DIAGNOSES: Same PROCEDURE: 1. Right femoral endarterectomy with xenosure patch angioplasty 2. Right femoral to below knee popliteal bypass with cadaver vein SURGEON: Valarie Steiner MD ANESTHESIA: Gen. anesthesia and local INDICATION FOR PROCEDURE: This is a very pleasant 60-year-old patient with a long-standing history of tobacco abuse, now successful with smoking cessation for several months, who has worsening claudication, right leg greater than left, that his lifestyle limiting. Endovascular options have been attempted and have subsequently failed, and at this point I feel the best option for the patient for long-term limb salvage and perfusion is femoropopliteal bypasses. Her symptoms are worse on the right, so we will first proceed with a right femoral endarterectomy and right femoral to below-knee popliteal bypass with cadaver vein. The patient does not have suitable saphenous vein for an autologous bypass. Risks benefits and alternatives were explained and she was agreeable to proceed. Today, I noticed the patient had some erythema in her bilateral stomach and groin skin folds, which I have noticed on her in the past as well. She is morbidly obese, and I did not see a gross accumulation of fungus, but I suspect this is fungal in nature. I did discuss with the patient that this could possibly complicate her postoperative course and she understands that and despite this says she is very anxious to go ahead with surgery to improve her walking. She feels that if she can't walk, she can't lose the weight, and these issues with her skin and other problems from obesity will persist. I discussed with her that we will start a nystatin cream after surgery, and keep dry pillowcases in her skin folds to prevent moisture buildup while she is at rest. She is agreeable to this plan. Informed consent is obtained. REPORT OF OPERATION: Patient was brought to the operating room in stable condition. Anesthesia and antibiotics were administered without complication. Her bilateral groins in her entire right lower extremity were prepped and draped in sterile fashion. A timeout was performed. Ioban was placed over the skin. An oblique incision was made over the right inguinal ligament and carried down to the subcutaneous tissue with Bovie cautery. Bridging veins were suture ligated a nd divided. The patient is morbidly obese and the dissection was very deep. The femoral sheath was opened longitudinally. The circumflex vessels were identified and Vesseloops were placed. The femoral artery was skeletonized proximally and distally. A vessel loop was placed around the superficial femoral artery and the profunda. Next, we turned our attention to the popliteal incision. A longitudinal incision was made over the medial calf and carried down to the subcutaneous tissue with Bovie cautery. The saphenous vein and its branches were identified and preserved where we were able. However, small bridging veins were suture ligated and divided. We continued her dissection down to the medial fascia and incised this longitudinally. We retracted the muscle posteriorly and were able to dissected towards the popliteal artery and vein. We skeletonized the popliteal artery proximally distally and Vesseloops were placed. 5000 units of heparin was given and allowed circulate. The cadaver vein was appropriately thawed and prepared. A clamp was placed on the femoral artery proximal to the area of heaviest plaque, proximal to the circumflex vessels. The Vesseloops were then secured and an arteriotomy was made from the circumflex vessels to the proximal superficial femoral artery. Near occlusive plaque was noted near the origin of the profunda, the superficial femoral artery and also some bulky p laque in the common femoral artery near the circumflex vessels. An endarterectomy was performed in the plaque was sent for pathology. There also was a small amount of proximal superficial femoral artery stent that was excised with the plaque and sent for pathology. All loose intima and debris was carefully removed. The site was irrigated with heparinized saline. Once the endarterectomy was complete, we selected a xenosure patch and this was anastomosed in a running fashion with 50 hemostatic Prolene suture. Before the final sutures are placed, we flushed the inflow and outflow arteries and irrigated with heparinized saline. The final sutures are placed in flow was restored to the right lower extremity, good hemostasis was noted at the patch. A tunneler was used to tunnel from the popliteal incision to the femoral incision. We then attached the distal end of the cadaver vein to the tunneler and it was carefully marked and then tunneled to prevent twisting. After being tunnel, we flushed with copious amounts of saline to make sure it was twisted. We then adjusted the vein so that there was plenty of distal vein for a tension-free anastomosis and selected a branch point on the proximal vein that was a little bit larger and extended this with a pot scissored toward a branch and created a larger patch for anastomosis. We then resecured her clamps and Vesseloops on the femoral vessels after giving additional heparin. An arteriotomy was made in the patch and the proximal end of the vein was anastomosed to the patch and an end-to-side fashion with 6-0 Prolene suture. Before the final sutures are placed, a clamp was placed on the bypass graft and then the inflow and outflow arteries were flushed and then we irrigated with heparinized saline. We placed the final sutures in good hemostasis was noted after restoring flow to the right lower extremity. We then returned to the popliteal incision. The clamp proximally was temporarily removed from the graft to ensure there was good flow through the graft and there was no twist in the vein. Once we confirmed this we replaced the clamp proximally and flushed the graft with heparinized saline. We then beveled the end of the graft and secured the Vesseloops on the popliteal artery. The popliteal artery was in good condition, but very diminutive in size. We then created an arteriotomy and anastomosed the vein to the artery and an end-to-side fashion with 6-0 Prolene suture. Before the final sutures are placed with flushed inflow and outflow artery and flushed with graft and then irrigated with heparinized saline. We place a final sutures in good hemostasis was noted after restoring flow to the right lower extremity. A Doppler was used to confirm excellent flow through the proximal and distal popliteal artery, excellent flow through the bypass, excellent follow through the profunda artery. We also had decent flow through the proximal SFA. Next, we irrigated both incisions with copious amounts of saline. Local anesthesia was administered to the skin and subcutaneous tissues prior to closing. The popliteal incision was closed with 2 layers of deep and superficial fascia 2-0 Vicryl suture. The deep dermal layer was approximated with interrupted 3-0 Vicryl suture. A few nylon mattress sutures are placed at the skin to take tension off the skin closure and provide additional support for the closure in this morbidly obese patient. We then finished the skin closure with josselin. At the groin, the femoral sheath was closed with 2-0 Vicryl suture. There were 4 layers of running closure from the deep fascia to the superficial fascia with 2-0 Vicryl running sutures. The dermal edges was approximated with interrupted 3-0 Vicryl sutures. A few nylon mattress sutures were placed at the skin across the incision to take tension off the skin closure and provide additional support for the closure in this morbidly obese patient. We then finished the skin closure was josselin. Both incisions were cleaned and dried. 4 x 4's and Tegaderms were placed as a final dressing. We then placed nystatin cream along the erythematous areas in her abdominal folds and her core increases. A dry soft pillow case was placed in her abdominal folds and core increases to prevent moisture buildup. The patient was then extubated and brought to recovery in stable condition. ESTIMATED BLOOD LOSS: Approximately 150 mL. COMPLICATIONS: None. PLAN: The patient will be admitted to the hospitalist service, plan for discontinuation of the Shanks and physical therapy/out of bed in the morning. She will be on bed rest overnight. She will be on a high protein diabetic diet, and we will restart her Plavix in the morning. SCDs for DVT prophylaxis. Analgesia when necessary. We appreciate the opportunity to participate in the care of this patient. VALARIE STEINER MD Aug 03, 2020 12:26
[2020-08-03] MEDS ORDERED: ONDANSETRON 4MG/2ML VIAL IV PRN ×2 (12:30→12:45)
[2020-08-03] MEDS ORDERED: oxyCODONE 5MG TAB PO PRN (12:45)
[2020-08-03] MEDS ORDERED: HumaLOG INSULIN (NovoLOG) PER UNIT SC ONE (12:45)
[2020-08-03] MEDS ORDERED: LR 1,000 ML IV SCH (12:45)
[2020-08-03] MEDS ORDERED: GLUCOSE 4GM CHEW TABLET PO PRN (12:50)
[2020-08-03] MEDS ORDERED: GLUCAGON INJ 1MG VIAL SC PRN (12:50)
[2020-08-03] MEDS ORDERED: DEXTROSE 50% 50 ML SYRINGE IV PRN (12:50)
[2020-08-03] MEDS: fentaNYL 100 MCG/2 ML INJECTION (J3010) IV PRN ×3 (13:40→13:57)
[2020-08-03] MEDS: PERCOCET 5MG/325MG TAB PO PRN ×2 (13:56→18:49)
[2020-08-03] MEDS: HYDROmorphone 2 MG TAB PO PRN (15:33)
[2020-08-03] MEDS: EZETIMIBE 10 MG TAB (ZETIA) PO SCH (15:33)
[2020-08-03] MEDS: VENLAFAXINE **XR** 37.5 MG CAPSULE PO SCH (15:33)
[2020-08-03] MEDS ORDERED: PILL CUTTER 1 EACH XX PRN (17:15)
--- NOTE | 2020-08-03 19:01 | HPEPDOC ---
[facility] Medical History & Physical Date of Admission Aug 03, 2020 Date of Service: Aug 03, 2020 History and Physical Pls have nuclear unit operator call HYPERTYPE at [phone] to stat transcibe H&P by Dr. Pickett JOb #[id number] a/p : 60 F w >50 pack year tobacco abuse , 1.5 ppd since age 9 quit a few months ago, CAD stent, HTN, dyslipidemia, DM, obesity bmi 40 failed w claudication admitted s/p right femoral endarterectomy,right fem pop w cadaver vein. PAD s/p right fempop-postop mgt per vascular surgery. prn pain meds, plavix in am, dc looney in am, bedrest tonight, activity as tolerated and pt/ot in am HTN CAD DM dyslipidemia obesity-monitor for co2 retention while on po opioids. compression stockings for dvt prophylaxis per vascular surgery. Vital Signs Vital Signs Date Time Temp Pulse Resp B/P (MAP) Pulse Ox O2 Delivery O2 Flow Rate FiO2 08/03/20 18:50 97.7 86 17 128/67 (87) 95 Nasal Cannula 2.0 Laboratory Data Labs 24H Laboratory Tests 2 08/03/20 06:45: Nucleated Red Blood Cells % (auto) 0.0, Prothrombin Time 12.3, Prothromb Time International Ratio 0.89, Activated Partial Thromboplast Time 24.0L, Anion Gap 3L, Glomerular Filtration Rate > 60.0, Calcium Level 8.8 08/03/20 07:10: Bedside Glucose (Misc Panel) 167H 08/03/20 12:37: Bedside Glucose (Misc Panel) 242H 08/03/20 17:08: Bedside Glucose (Misc Panel) 176H CBC/BMP Laboratory Tests 08/03/20 06:45 Home Medications Scheduled Amlodipine Besylate (Amlodipine Besylate) 5 Mg Tab, 10 MG PO DAILY Aspirin (Aspirin EC) 81 Mg Tablet.dr, 81 MG PO DAILY Clopidogrel Bisulfate (Plavix) 75 Mg Tablet, 75 MG PO DAILY Ezetimibe (Ezetimibe) 10 Mg Tab, 10 MG PO DAILY Insulin Glargine,Hum.rec.anlog (Basaglar Kwikpen U-100) 100 Unit/1 Ml Insuln.pen, 35 UNITS SC QHS Insulin Lispro (Admelog) 100 Unit/1 Ml Vial, 1 DOSE SC AC PER SLIDING SCALE Lisinopril (Lisinopril) 40 Mg Tablet, 40 MG PO DAILY Metformin HCl (Metformin HCl ER) 500 Mg Tab.er.24h, 1,000 MG PO DAILY Venlafaxine HCl (Venlafaxine HCl ER) 37.5 Mg Cap.er.24h, 37.5 MG PO DAILY Allergies Coded Allergies: atorvastatin (Verified Adverse Reaction, Intermediate, leg cr amps/weakness, 08/03/20) codeine (Verified Adverse Reaction, Mild, vomiting, 08/03/20) A-FIB/CHADSVASC A-FIB History Current/History of A-Fib/PAF?: No Current PO Anticoag Therapy: No Age/Risk Factor Scoring CHADSVASC: CHADSVASC Response (Comments) Value Age Risk Factor Age < 65 years old 0 Gender Risk Factor Female 1 Hx of CHF No 0 Hx of HTN Yes 1 Hx of Stroke/TIA/or VTE No 0 Hx of Diabetes Yes 1 Hx of Vascular Disease Yes 1 Total 4 Treatment Treatment ordered: NONE DIMAS PICKETT MD Aug 03, 2020 19:00
[2020-08-03] MEDS: LEVEMIR (INSULIN DETEMIR) 1 UNITS/0.01ML SC SCH (20:33)
[2020-08-04 02:00] VITALS: BP 100/60
[2020-08-04] MEDS: PERCOCET 5MG/325MG TAB PO PRN ×4 (02:18→17:43)
[2020-08-04 06:00] VITALS: BP 107/51
--- NOTE | 2020-08-04 07:47 | IPNPDOC ---
Date Seen The patient was seen on 08/04/20. Progress Note Patient seen and examined postoperative day one status post right femoral endarterectomy and right femoropopliteal bypass. She is doing well. Her incisio ns right groin and right calf with josselin and sutures are intact and were thoroughly cleaned and redressed with dry gauze. The patient tolerated this well. She had a preop history of erythema in her groin folds, which we suspect is due to yeast and moisture buildup from her morbid obesity, and we have been treating this perioperatively with a dry pillowcase in the groin fold and the abdominal fold as well as nystatin topical. We will continue to monitor this closely. I did discuss with the patient preoperatively that this did at the level of complication to potentially healing her right groin, but I'm hopeful that this will not be a problem with close attention. I did give her the opportunity to try to clear this infection prior to surgery, but the patient says it is nearly impossible for her to 100% eliminated the erythema, and she did not want to prolong an option to proceed with surgery. Hopefully we will be able to clear this up during her hospital stay. The patient says she does have postoperative pain and burning in the right leg, this is expected after a big surgery and I did talk to her about postoperative pain expectations before surgery. We would like her to get up out of bed with physical therapy. Her Shanks has been discontinued. We will slowly start ambulating her today. Tomorrow, I'd like her to get in the shower with her dressings off, followed by dry dressings, because it will be very important for her to do this every day at home and we need to get her in the habit of showering daily. With her obesity and history of chronic groin fold and abdominal fold erythema and yeast infections, the risk of groin incision infection and breakdown is high. We discussed this again today. Our goal will be either transfer to rehab or transfer to home in 2-3 days. We appreciate the hospitalist excellent care of this patient. VS, I&O, 24H, Fishbone Vital Signs/I&O Vital Signs Date Time Temp Pulse Resp B/P (MAP) Pulse Ox O2 Delivery O2 Flow Rate FiO2 08/04/20 06:00 97.6 93 19 107/51 (69) 94 Nasal Cannula 2.0 I&O- Last 24 Hours up to 6 AM 08/04/20 06:00 Intake Total 2985 ml Output Total 1225 ml Balance 1760 ml Laboratory Data 24H LABS Laboratory Tests 2 08/03/20 12:37: Bedside Glucose (Misc Panel) 242H 08/03/20 17:08: Bedside Glucose (Misc Panel) 176H 08/03/20 20:12: Bedside Glucose (Misc Panel) 163H 08/04/20 06:08: Bedside Glucose (Misc Panel) 125H VALARIE WHITT MD Aug 04, 2020 07:47
[2020-08-04] MEDS: VENLAFAXINE **XR** 37.5 MG CAPSULE PO SCH (08:36)
[2020-08-04] MEDS: NYSTATIN CREAM 15 GM TOP SCH (08:38)
[2020-08-04] MEDS: HumaLOG INSULIN (NovoLOG) PER UNIT SC SCH ×4 (08:38→20:57)
[2020-08-04] MEDS: EZETIMIBE 10 MG TAB (ZETIA) PO SCH (08:41)
--- NOTE | 2020-08-04 09:02 | HPE ---
HISTORY AND PHYSICAL DATE OF ADMISSION: 08/03/2020 CHIEF COMPLAINT: Claudication. HISTORY OF PRESENT ILLNESS: This is a 59-year-old female with over a 50 pack year history of smoking, 1 1/2 packs a day since the age of 9, quit just a few months ago, depression, peripheral vascular disease, hypertension, Type 2 diabetes, CAD, [place] in 2003, depression, obesity, no documented history of obstructive sleep apnea, coronary stent in 2005, currently on disability, previously worked as a deliver driver. Admitted status post right fem/pop due to peripheral vascular disease with significant claudication, failed on conservative management. Vascular Surgery attempted revascularization endovascular but could not open up the blockages in the bilateral superior femoral arteries on the right, status post femoral endarterectomy and right femoral to below knee popliteal bypass. Patient has 6/10 pain at the bedside currently but improved with pain medications with Percocet and as needed Dilaudid for breakthrough pain. Patient otherwise denied any constitutional symptoms, weight gain, weight loss, fever or chills, changes in appetite, changes in bowel habits, changes in sleep, depression, anxiety. All other systems otherwise negative. PAST MEDICAL HISTORY: Peripheral arterial disease, obesity, depression, CAD, [place], diabetes, hypertension. PAST SURGICAL HISTORY: Cholecystectomy, coronary stent in 2005, colonoscopy, cyst removal, angiogram of bilateral lower extremities. SOCIAL HISTORY: Patient smoked 1 1/2 packs a day of cigarettes since the age of 9, quit just a few months ago. No alcohol use. No recreational drug use. Currently on disability, previously worked as a deliver driver. FAMILY HISTORY: Patient is adopted and does not know any biological family history. ALLERGIES: Atorvastatin and Codeine. CURRENT HOSPITAL MEDICATIONS: 1. Nystatin. 2. Norvasc. 3. Humalog sliding scale. 4. Levemir insulin 35 units q.h.s. with hypoglycemic protocol. 5. Percocet one tablet every 4 hours as needed for pain, two tablets for severe pain. 6. Dilaudid 1 mg p.o. for breakthrough pain. 7. Zofran 4 mg IV for nausea and vomiting. 8. Zetia 10 daily. 9. Lisinopril 40 daily. 10.Effexor 37.5 mg daily. ASSESSMENT AND PLAN: A 60-year-old female with a history of obesity, diabetes, hypertension, peripheral arterial disease with persistent claudication of the right lower extremity due to atherosclerotic disease of the [place] arteries, status post right femoral endarterectomy with XenoSure patch angioplasty and right femoral to below the knee popliteal bypass with cadaver vein. Patient is admitted to the Hospitalist service for management of medical issues, postop management per vascular surgery. IMPRESSION: 1. Atherosclerosis of [place] vessels causing persistent claudication status post right femoral endarterectomy and right femoral popliteal bypass. Patient is currently managed postoperatively by Vascular Surgeon, Dr. Steiner, she is to be bed rest for 24 hours, Shanks catheter in until the morning which will then be discontinued and then activity as tolerated. May be resumed on Plavix. Tobacco cessation counseling has been provided. Patient refuses a nicotine patch. PT/OT, acute rehab evaluation in the morning. 2. Type 2 diabetes, resumed on Levemir insulin, insulin sliding scale, hypoglycemic protocol, fingersticks q. a.c. and h.s. Check A1c in the morning. 3. Hypertension, continued on Norvasc, Lisinopril. 4. Dyslipidemia, on Zetia. 5. Diet is consistent carbohydrate, 2 gram sodium. 6. Code status: Full code.
[2020-08-04 09:16] LABS: BASO % 0.3 % (0.0-1.0); EOS # 0.1 10^3/uL (0.0-0.5); EOS % 0.9 % (0.0-3.0); HEMATOCRIT 46.6 % (36.0-47.0); HEMOGLOBIN 14.9 g/dl (12.0-15.5); LYMPH # 2.9 10^3/uL (1.5-5.0); LYMPH % 25.2 % (24.0-44.0); MEAN CORPUSCULAR VOLUME 97.1 fl (80.0-96.0); MONO # 1.2 10^3/uL (0.0-0.8); MONO % 10.7 % (2.0-8.0); NEUTROPHILS # 7.2 10^3/uL (1.5-8.5); NEUTROPHILS % 62.5 % (36.0-66.0); PLATELET COUNT, AUTOMATED 142 10^3/uL (150-450); WHITE BLOOD COUNT 11.5 10^3/uL (4.0-10.0)
[2020-08-04 09:37] LABS: BLOOD UREA NITROGEN 20 MG/DL (7-18); CALCIUM LEVEL 8.5 MG/DL (8.8-10.2); CARBON DIOXIDE LEVEL 32 MEQ/L (21-32); CHLORIDE LEVEL 108 MEQ/L (98-107); CREATININE FOR GFR 0.65 MG/DL (0.55-1.30); GLOMERULAR FILTRATION RATE > 60.0 (>45); GLUCOSE, FASTING 112 MG/DL (70-100); POTASSIUM SERUM 4.3 MEQ/L (3.5-5.1); SODIUM LEVEL 142 MEQ/L (136-145)
[2020-08-04 10:00] VITALS: BP 99/58
[2020-08-04 14:00] VITALS: BP 100/56
[2020-08-04] MEDS: HYDROmorphone 2 MG TAB PO PRN (18:58)
[2020-08-04] MEDS: LEVEMIR (INSULIN DETEMIR) 1 UNITS/0.01ML SC SCH (20:58)
[2020-08-04 22:00] VITALS: BP 115/84
[2020-08-04] MEDS ORDERED: CLOPIDOGREL 75 MG TAB PO ONE (22:20)
--- NOTE | 2020-08-04 22:32 | IPNPDOC ---
Subjective Date Seen The patient was seen on 08/04/20. Subjective Chief Complaint/HPI Poor appetite today. Complains of pain and increased sensitivity of thr right leg. Worked with PT Objective Physical Examination General Exam: Positive: Alert, Cooperative, No Acute Distress Eye Exam: Positive: PERRLA, Conjunctiva & lids normal, EOMI; Negative: Sclera icteric Neck Exam: Positive: Supple; Negative: JVD, thyromegaly Chest Exam: Positive: Clear to auscultation, Normal air movement Heart Exam: Positive: Rate Normal, Regular Rhythm, Normal S1, Normal S2; Negative: Murmurs, Rubs Abdomen Exam: Positive: Normal bowel sounds, Soft; Negative: Tenderness, Hepatospenomegaly Extremity Exam: Positive: Other (warm and pink with increased sensitivity of te right leg, cooler left leg. ); Negative: Clubbing, Cyanosis, Edema Psych Exam: Positive: Mood NL, Memory Intact, Oriented x 3 Assessment /Plan Assessment A 60-year-old female with a history of obesity, diabetes, heavy smoker, quit ju st a few months ago, depression, peripheral vascular disease, hypertension, CAD, [place] in 2003 s/p stent in 2005, obesity, no documented history of obstructive sleep apnea was admitted status post Right femoral endarterectomy with xenosure patch angioplasty and Right femoral to below knee popliteal bypass with cadaver vein for peripheral vascular disease with significant claudication, failed on conservative management. PAD s/p Vascular surgical procedure as above management as per vascular surgery. will restart plavix. Type 2 diabetes with neuropathy resumed on Levemir insulin, insulin sliding scale, hypoglycemic protocol, fingersticks q. a.c. and h.s. Hypertension, continued on Norvasc, Hold Lisinopril. Dyslipidemia, on Zetia. Depression venlafaxine Morbid obesity with BALWINDER Untreated , unable to tolerate CPAP complicating care Intertriginous candidiasis nystatin power, dry pillow case in between the abdominal folds. CAD s/p LACIE stent last in July continue plavix, zetia COPD stage 3/ pulmonary nodules no issues Mild / mild pulmonary hypertension Plan/VTE VTE Prophylaxis Ordered?: Yes VS, I&O, 24H, Fishbone Vital Signs/I&O Vital Signs Date Time Temp Pulse Resp B/P (MAP) Pulse Ox O2 Delivery O2 Flow Rate FiO2 08/04/20 19:44 18 08/04/20 18:58 Room Air 08/04/20 14:00 97.8 88 100/56 (71) 96 2.0 I&O- Last 24 Hours up to 6 AM 08/04/20 07:00 Intake Total 2985 ml Output Total 1225 ml Balance 1760 ml Laboratory Data 24H LABS Laboratory Tests 2 08/04/20 06:08: Bedside Glucose (Misc Panel) 125H 08/04/20 09:00: Immature Granulocyte % (Auto) 0.4, Neutrophils (%) (Auto) 62.5, Lymphocytes (%) (Auto) 25.2, Monocytes (%) (Auto) 10.7H, Eosinophils (%) (Auto) 0.9, Basophils (%) (Auto) 0.3, Neutrophils # (Auto) 7.2, Lymphocytes # (Auto) 2.9, Monocytes # (Auto) 1.2H, Eosinophils # (Auto) 0.1, Basophils # (Auto) 0.0, Nucleated Red Blood Cells % (auto) 0.0, Anion Gap 2L, Glomerular Filtration Rate > 60.0, Calcium Level 8.5L 08/04/20 11:33: Bedside Glucose (Misc Panel) 70L 08/04/20 16:51: Bedside Glucose (Misc Panel) 141H 08/04/20 20:37: Bedside Glucose (Misc Panel) 93 CBC/BMP Laboratory Tests 08/04/20 09:00 PRIETO MIKE MD Aug 04, 2020 22:32
[2020-08-05 06:00] VITALS: BP 106/56
[2020-08-05] MEDS: PERCOCET 5MG/325MG TAB PO PRN ×3 (06:47→21:20)
[2020-08-05 06:57] LABS: BASO % 0.4 % (0.0-1.0); EOS # 0.1 10^3/uL (0.0-0.5); EOS % 0.9 % (0.0-3.0); HEMOGLOBIN 14.4 g/dl (12.0-15.5); LYMPH # 1.8 10^3/uL (1.5-5.0); MEAN CORPUSCULAR HEMOGLOBIN 30.7 pg (27.0-33.0); MEAN CORPUSCULAR VOLUME 95.9 fl (80.0-96.0); MONO % 9.8 % (2.0-8.0); NEUTROPHILS # 7.5 10^3/uL (1.5-8.5); NEUTROPHILS % 71.4 % (36.0-66.0); PLATELET COUNT, AUTOMATED 160 10^3/uL (150-450); RED BLOOD COUNT 4.69 10^6/uL (4.00-5.40); WHITE BLOOD COUNT 10.5 10^3/uL (4.0-10.0)
[2020-08-05 07:25] LABS: BLOOD UREA NITROGEN 20 MG/DL (7-18); CALCIUM LEVEL 8.5 MG/DL (8.8-10.2); CARBON DIOXIDE LEVEL 29 MEQ/L (21-32); CHLORIDE LEVEL 105 MEQ/L (98-107); CREATININE FOR GFR 0.63 MG/DL (0.55-1.30); GLOMERULAR FILTRATION RATE > 60.0 (>45); GLUCOSE, FASTING 128 MG/DL (70-100); POTASSIUM SERUM 4.3 MEQ/L (3.5-5.1); SODIUM LEVEL 138 MEQ/L (136-145)
[2020-08-05] MEDS: CLOPIDOGREL 75 MG TAB PO SCH (09:36)
[2020-08-05] MEDS: EZETIMIBE 10 MG TAB (ZETIA) PO SCH (09:36)
[2020-08-05] MEDS: HumaLOG INSULIN (NovoLOG) PER UNIT SC SCH ×4 (09:36→20:57)
[2020-08-05] MEDS: VENLAFAXINE **XR** 37.5 MG CAPSULE PO SCH (09:36)
[2020-08-05] MEDS: NYSTATIN CREAM 15 GM TOP SCH (09:37)
--- NOTE | 2020-08-05 13:19 | IPNPDOC ---
Text Note Date of Service The patient was seen on 08/05/20. NOTE Vascular surgery. Dr. Steiner. Patient seen and examined with Dr. Steiner POD2 status post right femoral endarterectomy and right femoropopliteal bypass. The patient reports pain is controlled. Incisions right groin and right calf with josselin and sutures are intact and were thoroughly cleaned and redressed with dry gauze. She had a preop history of erythema in her groin folds, which we suspect is due to yeast and moisture buildup from her morbid obesity, continuing to treat this perioperatively with a dry pillowcase in the groin fold and the abdominal fold as well as nystatin topical. This is appearing to improve. Continue to monitor this closely. Continue to encourage out of bed, ambulation. Encouraged her to try showering today. Transfer to rehab or transfer to home 1-2 days. We appreciate the hospitalist excellent care of this patient. VS,Josebone, I+O VS, Fishbone, I+O Laboratory Tests 08/05/20 06:45 Vital Signs Date Time Temp Pulse Resp B/P (MAP) Pulse Ox O2 Delivery O2 Flow Rate FiO2 08/05/20 12:24 93 Room Air 08/05/20 09:39 85 115/60 08/05/20 07:30 20 08/05/20 06:00 98.0 2.0 I&O- Last 24 Hours up to 6 AM 08/05/20 06:00 Intake Total 220 ml Output Total 0 ml Balance 220 ml Rayne Potts Aug 05, 2020 13:19
[2020-08-05 14:00] VITALS: BP 123/68
[2020-08-05] MEDS: HYDROmorphone 2 MG TAB PO PRN (14:56)
[2020-08-05] MEDS: LEVEMIR (INSULIN DETEMIR) 1 UNITS/0.01ML SC SCH (20:57)
--- NOTE | 2020-08-05 21:03 | IPNPDOC ---
Subjective Date Seen The patient was seen on 08/05/20. Subjective Chief Complaint/HPI Pain controlled. No issues overnight. Objective Physical Examination General Exam: Positive: Alert, Cooperative, No Acute Distress Eye Exam: Positive: PERRLA, Conjunctiva & lids normal, EOMI; Negative: Sclera icteric Neck Exam: Positive: Supple; Negative: JVD, thyromegaly Chest Exam: Positive: Clear to auscultation, Normal air movement Heart Exam: Positive: Rate Normal, Regular Rhythm, Normal S1, Normal S2; Negative: Murmurs, Rubs Abdomen Exam: Positive: Normal bowel sounds, Soft; Negative: Tenderness, Hepatospenomegaly Extremity Exam: Positive: Other (warm and pink with increased sensitivity of te right leg, cooler left leg. ); Negative: Clubbing, Cyanosis, Edema Psych Exam: Positive: Mood NL, Memory Intact, Oriented x 3 Assessment /Plan Assessment A 60-year-old female with a history of obesity, diabetes, heavy smoker, quit just a few months ago, depression, peripheral vascular disease, hypertension, CAD, [place] in 2003 s/p stent in 2005, obesity, no documented history of obstructive sleep apnea was admitted status post Right femoral endarterectomy with xenosure patch angioplasty and Right femoral to below knee popliteal bypass with cadaver vein for peripheral vascular disease with significant claudication, failed on conservative management. PAD s/p Vascular surgical procedure as above management as per vascular surgery. restarted plavix. Type 2 diabetes with neuropathy resumed on Levemir insulin, insulin sliding scale, hypoglycemic protocol, fingersticks q. a.c. and h.s. Hypertension, continued on Norvasc, Hold Lisinopril. Dyslipidemia, on Zetia. Depression venlafaxine Morbid obesity with BALWINDER Untreated , unable to tolerate CPAP complicating care. Desaturations during sleep noted Intertriginous candidiasis nystatin cream, dry pillow case in between the abdominal folds. CAD s/p LACIE stent last in July continue plavix, zetia COPD stage 3/ pulmonary nodules no issues Mild / mild pulmonary hypertension Plan/VTE VTE Prophylaxis Ordered?: Yes VS, I&O, 24H, Fishbone Vital Signs/I&O Vital Signs Date Time Temp Pulse Resp B/P (MAP) Pulse Ox O2 Delivery O2 Flow Rate FiO2 08/05/20 15:26 16 92 Nasal Cannula 2.0 08/05/20 14:00 98.4 89 123/68 (86) I&O- Last 24 Hours up to 6 AM 08/05/20 07:00 Intake Total 220 ml Output Total 200 ml Balance 20 ml Laboratory Data 24H LABS Laboratory Tests 2 08/05/20 06:45: Immature Granulocyte % (Auto) 0.5, Neutrophils (%) (Auto) 71.4H, Lymphocytes (%) (Auto) 17.0L, Monocytes (%) (Auto) 9.8H, Eosinophils (%) (Auto) 0.9, Basophils (%) (Auto) 0.4, Neutrophils # (Auto) 7.5, Lymphocytes # (Auto) 1.8, Monocytes # (Auto) 1.0H, Eosinophils # (Auto) 0.1, Basophils # (Auto) 0.0, Nucleated Red Blood Cells % (auto) 0.0, Anion Gap 4L, Glomerular Filtration Rate > 60.0, Calcium Level 8.5L 08/05/20 11:36: Bedside Glucose (Misc Panel) 129H 08/05/20 17:03: Bedside Glucose (Misc Panel) 157H 08/05/20 20:52: Bedside Glucose (Misc Panel) 149H CBC/BMP Laboratory Tests 08/05/20 06:45 PRIETO MIKE MD Aug 05, 2020 21:03
[2020-08-05 22:00] VITALS: BP 126/69
[2020-08-06 01:38] VITALS: O2SAT 85
[2020-08-06 01:42] VITALS: O2SAT 92
[2020-08-06 06:00] VITALS: BP 126/60
[2020-08-06] MEDS: CLOPIDOGREL 75 MG TAB PO SCH (08:33)
[2020-08-06] MEDS: VENLAFAXINE **XR** 37.5 MG CAPSULE PO SCH (08:33)
[2020-08-06] MEDS: HumaLOG INSULIN (NovoLOG) PER UNIT SC SCH (08:33)
[2020-08-06 08:34] VITALS: BP 124/67
[2020-08-06] MEDS: EZETIMIBE 10 MG TAB (ZETIA) PO SCH (08:34)
[2020-08-06] MEDS: NYSTATIN CREAM 15 GM TOP SCH (08:34)
[2020-08-06] MEDS ORDERED: PERC5TAB12 PO (08:47)
[2020-08-06] MEDS ORDERED: LISI40TA4 PO (08:47)
[2020-08-06] MEDS ORDERED: NYST10CR TOP (08:47)
--- NOTE | 2020-08-06 09:03 | IPNPDOC ---
Date Seen The patient was seen on 08/06/20. Progress Note Patient seen and examined. Doing well postop day 3 status post a right femoral endarterectomy and right femoropopliteal bypass with cadaver vein. Her incisions are clean dry and intact. There is a triphasic signal over the femoropopliteal bypass, biphasic signal at the PT and DP on the right lower extremity. The foot is warm pink with less than 1 second capillary refill at the toes. [place] and sutures are intact. The incision was thoroughly cleaned and dressed with dry gauze and paper tape. The erythema in the groin folds has resolved with nystatin cream, good hygiene, and soft cloth in the groin folds and abdominal fold. The groin incision will be very tenuous to heal due to morbid obesity. I have explained this to the patient at length. She must shower every day with dressings off, pat dry with a clean towel, and replace dressings (4x4 paper tape) with clean hands. She needs to eat plenty of protein to improve wound healing. We'll see her back in one week to check her incisions, 2 weeks to remove josselin, 3 weeks remove sutures. No lifting greater than 5 pounds, no strenuous exercise for 2 weeks. Okay to ambulate daily. We appreciate the opportunity to participate in the care of this patient. VS, I&O, 24H, Fishbone Vital Signs/I&O Vital Signs Date Time Temp Pulse Resp B/P (MAP) Pulse Ox O2 Delivery O2 Flow Rate FiO2 08/06/20 08:34 82 124/67 08/06/20 06:00 97.2 20 92 Room Air 08/06/20 01:42 2.0 I&O- Last 24 Hours up to 6 AM 08/06/20 06:00 Intake Total 220 ml Output Total 1600 ml Balance -1380 ml Laboratory Data 24H LABS Laboratory Tests 2 08/05/20 11:36: Bedside Glucose (Misc Panel) 129H 08/05/20 17:03: Bedside Glucose (Misc Panel) 157H 08/05/20 20:52: Bedside Glucose (Misc Panel) 149H 08/06/20 06:14: Bedside Glucose (Misc Panel) 160H VALARIE WHITT MD Aug 06, 2020 09:03
[2020-08-06] MEDS: PERCOCET 5MG/325MG TAB PO PRN (10:56)
--- NOTE | 2020-08-06 12:24 | DS.PDOC ---
Discharge Summary General Date of Admission Aug 05, 2020 at 21:05 Date of Discharge 08/06/20 Discharge Summary PROCEDURES PERFORMED DURING STAY: Right femoral endarterectomy with xenosure patch angioplasty and Right femoral to below knee popliteal bypass with cadaver vein DISCHARGE DIAGNOSES: PAD s/p Right femoral endarterectomy with xenosure patch angioplasty and Right femoral to below knee popliteal bypass with cadaver vein SECONDARY DIAGNOSIS: Obesity with BALWINDER untreated Diabetes with neuropathy Ex smoker, quit just a few months ago, Depression, Hypertension, CAD, [place] in 2003 s/p stent in 2005, Dyslipidemia COPD stage 3/ pulmonary nodules Mild / mild pulmonary hypertension Intertriginous candidiasis. COMPLICATIONS/CHIEF COMPLAINT: Atherosclerosis [place] Arteries Claudication. HOSPITAL COURSE: A 60-year-old female with a history of obesity, diabetes, heavy smoker, quit just a few months ago, depression, peripheral vascular disease, hypertension, CAD, [place] in 2003 s/p stent in 2005, no documented history of obstructive sleep apnea was admitted status post Right femoral endarterectomy with xenosure patch angioplasty and Right femoral to below knee popliteal bypass with cadaver vein for peripheral vascular disease with significant claudication, failed on conservative management. PAD s/p Vascular surgical procedure as above management as per vascular surgery. restarted plavix. Type 2 diabetes with neuropathy resumed on Levemir insulin, insulin sliding scale, hypoglycemic protocol, fingersticks q. a.c. and h.s. Hypertension, continued on Norvasc, Hold Lisinopril. Dyslipidemia, on Zetia. Depression venlafaxine Morbid obesity with BALWINDER Untreated , unable to tolerate CPAP complicating care. Desaturations during sleep noted Intertriginous candidiasis nystatin cream, dry pillow case in between the abdominal folds. CAD s/p LACIE stent last in July continue plavix, zetia COPD stage 3/ pulmonary nodules no issues Mild / mild pulmonary hypertension DISCHARGE MEDICATIONS: Please see below. ALLERGIES: Please see below. PHYSICAL EXAMINATION ON DISCHARGE: VITAL SIGNS: Please see below. General Exam: Positive: Alert, Cooperative, No Acute Distress Eye Exam: Positive: PERRLA, Conjunctiva & lids normal, EOMI; Negative: Sclera icteric Neck Exam: Positive: Supple; Negative: JVD, thyromegaly Chest Exam: Positive: Clear to auscultation, Normal air movement Heart Exam: Positive: Rate Normal, Regular Rhythm, Normal S1, Normal S2; Negative: Murmurs, Rubs Abdomen Exam: Positive: Normal bowel sounds, Soft; Negative: Tenderness, Hepatosplenomegaly Extremity Exam: Positive: Other (warm and pink with increased sensitivity of te right leg, cooler left leg. ); Negative: Clubbing, Cyanosis, Edema Psych Exam: Positive: Mood NL, Memory Intact, Oriented x 3 LABORATORY DATA: Please see below. ACTIVITY: [As tolerated]. DIET: Carb consistent, high protein DISCHARGE PLAN: Home DISCHARGE INSTRUCTIONS: Follow up vascular surgery in 1 week PMD in 2 weeks Wound care: Shower every day with dressings off, pat dry with a clean towel, and replace dressings (4x4 paper tape) with clean hands. No lifting more than 5 lbs, walk daily but no strenuous exercise. DISCHARGE CONDITION: [Stable]. TIME SPENT ON DISCHARGE: 40 minutes. Vital Signs/I&Os Vital Signs Date Time Temp Pulse Resp B/P (MAP) Pulse Ox O2 Delivery O2 Flow Rate FiO2 08/06/20 10:56 18 Room Air 08/06/20 09:00 2.0 08/06/20 08:34 82 124/67 08/06/20 06:00 97.2 92 I&O- Last 24 Hours up to 6 AM 08/06/20 05:59 Intake Total 220 ml Output Total 1600 ml Balance -1380 ml Laboratory Data Labs 24H Laboratory Tests 2 08/05/20 17:03: Bedside Glucose (Misc Panel) 157H 08/05/20 20:52: Bedside Glucose (Misc Panel) 149H 08/06/20 06:14: Bedside Glucose (Misc Panel) 160H FSBS Laboratory Tests Test 08/05/20 17:03 08/05/20 20:52 08/06/20 06:14 Range/Units Bedside Glucose (Misc Panel) 157 149 160 80-115 MG/DL Discharge Medications Scheduled Amlodipine Besylate (Amlodipine Besylate) 5 Mg Tab, 10 MG PO DAILY, (Reported) Aspirin (Aspirin EC) 81 Mg Tablet.dr, 81 MG PO DAILY, (Reported) Clopidogrel Bisulfate (Plavix) 75 Mg Tablet, 75 MG PO DAILY, (Reported) Ezetimibe (Ezetimibe) 10 Mg Tab, 10 MG PO DAILY, (Reported) Insulin Glargine,Hum.rec.anlog (Basaglar Kwikpen U-100) 100 Unit/1 Ml Insuln.pen, 35 UNITS SC QHS, (Reported) Insulin Lispro (Admelog) 100 Unit/1 Ml Vial, 1 DOSE SC AC, (Reported) PER SLIDING SCALE Lisinopril (Lisinopril) 40 Mg Tablet, 20 MG PO DAILY Metformin HCl (Metformin HCl ER) 500 Mg Tab.er.24h, 1,000 MG PO DAILY, (Reported) Nystatin (Nystatin) 15 Gm Cream..g., 0 DOSE TOP DAILY Venlafaxine HCl (Venlafaxine HCl ER) 37.5 Mg Cap.er.24h, 37.5 MG PO DAILY, (Reported) Scheduled PRN Oxycodone HCl/Acetaminophen (Percocet 5-325 mg Tablet) 1 Each Tablet, 1-2 TAB PO Q6HP PRN for PAIN LEVEL 5-10 Allergies Coded Allergies: atorvastatin (Verified Adverse Reaction, Intermediate, leg cramps/weakness, 08/03/20) codeine (Verified Adverse Reaction, Mild, vomiting, 08/03/20) PRIETO MIKE MD Aug 06, 2020 12:24
== END 2020-08-06 11:59 | disposition home or self-care (01) | DRG 181 ==
LOC: M OR 06:09 → INTOOBSV 06:09 → M MSPAV 14:20 → OBSVTOIN 08-05 21:05
PROVIDERS: ADMIT Surgery Vascular Surgery; ATTEND Internal Medicine Nephrology
PROC: 04UK0JZ Supplement Right Femoral Artery with Synthetic Substitute, Open Approach (ICD-10-PCS; 2020-08-03)
PROC: 04CK0ZZ Extirpation of Matter from Right Femoral Artery, Open Approach (ICD-10-PCS; principal; 2020-08-03 07:30)
PROC: 041K0KL Bypass Right Femoral Artery to Popliteal Artery with Nonautologous Tissue Substitute, Open Approach (ICD-10-PCS; 2020-08-03 07:30)
DX: I70.213 Atherosclerosis of native arteries of extremities with intermittent claudication, bilateral legs (principal); E11.40 Type 2 diabetes mellitus with diabetic neuropathy, unspecified; Z68.41 Body mass index [BMI] 40.0-44.9, adult; I27.20 Pulmonary hypertension, unspecified; E66.01 Morbid (severe) obesity due to excess calories; E11.51 Type 2 diabetes mellitus with diabetic peripheral angiopathy without gangrene; I10 Essential (primary) hypertension; I25.10 Atherosclerotic heart disease of native coronary artery without angina pectoris; I25.2 Old myocardial infarction; F32.9 Major depressive disorder, single episode, unspecified; B37.2 Candidiasis of skin and nail; G47.33 Obstructive sleep apnea (adult) (pediatric); Z95.5 Presence of coronary angioplasty implant and graft; Z87.891 Personal history of nicotine dependence; Z79.02 Long term (current) use of antithrombotics/antiplatelets; Z79.82 Long term (current) use of aspirin; Z79.4 Long term (current) use of insulin; Z79.899 Other long term (current) drug therapy

== ENCOUNTER → 2020-08-28 | Outpatient (CLI) | payer OTHER ==
[~2020-08-28] MED LIST changes: +NYST10CR TOP; +PERC5TAB12 PO
--- NOTE | 2020-08-28 13:18 | REP ---
INDICATION: TOBACCO USE. COMPARISON: Comparison is made with prior chest CTs, the most recent which is from 25 July 2019 and the most remote is dated 23 March 2009.. TECHNIQUE: Dose reduction was performed utilizing CARE dose with automated adjustment of the kV and MAS according to patient size; iterative reconstruction, automated exposure control, as well as adaptive dose shielding. Helical scanning is acquired and 3 mm axial images are re-formatted at lung only windows. FINDINGS: Digital preliminary helicopter officer radiograph is unremarkable. There is some vascular calcification again noted. There are 3 non solid subcentimeter nodules again noted, 1 in each apex and the other in the left lower lobe. These are unchanged from the most recent prior study of July 25, 2019. No new pulmonary nodule is appreciated. There are clips in the gallbladder fossa. The scan is otherwise unremarkable. IMPRESSION: Lung RADS category 2 findings. Repeat screening exam suggested in 1 year. <Electronically signed by Derick Shepherd > 08/28/20 0200
== END ==
LOC: M RAD 12:42
PROVIDERS: ATTEND Physician Assistant Medical
DX: Z12.2 Encounter for screening for malignant neoplasm of respiratory organs (principal); Z72.0 Tobacco use; R91.8 Other nonspecific abnormal finding of lung field

== ENCOUNTER → 2020-08-31 | Outpatient (CLI) | payer OTHER ==
--- NOTE | 2020-09-03 16:55 | REP ---
INDICATION: CLAUDICATION COMPARISON: None. TECHNIQUE: Real time diana scale and color Doppler evaluation of the bilateral lower extremity arterial vasculature using linear high frequency transducer. FINDINGS: Right lower extremity evaluation at the level of the groin is limited due to josselin and infectious process (painful and actively draining during examination). Evidence for patent right sided bypass graft from level of the proximal superficial femoral artery (SFA) to the mid knee at the level of the distal popliteal artery with biphasic wave patterns. Right lower extremity also demonstrates occlusion to the distal posterior tibial artery with reversed flow by collateral vessel. RIGHT BYPASS GRAFT PEAK SYSTOLIC VELOCITIES (CM/SEC) Proximal anastomosis: 70.8 Proximal thigh: 55.8 Mid thigh: 46.0 Distal thigh: 42.5 Mid knee: 41 Distal anastomosis: 31.4 [place] RIGHT PEAK SYSTOLIC VELOCITIES (CM/SEC) Common femoral artery: 86.6 (triphasic) Profundus artery: 32.6 (biphasic) Proximal SFA: 54.2 (triphasic) Mid SFA: 30.0 (biphasic/triphasic) Distal SFA: 48.9 (biphasic/triphasic) Popliteal (proximal to anastomosis): 33.7 (monophasic) Proximal MAGDALENE: 61.9 (biphasic) Tibioperoneal trunk: 57.2 (biphasic) Proximal FIRE TECHNICIAN: 34.0 (triphasic) Distal FIRE TECHNICIAN: Occlusion with reversed flow at 16.9 (monophasic) Distal MAGDALENE: 42.5 (biphasic) Left lower extremity demonstrates severe atheromatous plaquing with a focal area of occlusion in the mid superficial femoral artery and subsequent revascularization in the distal superficial femoral artery with reversed flow. [place] LEFT PEAK SYSTOLIC VELOCITIES (CM/SEC) Common femoral artery: 109.3 (biphasic) Profunda femoris: 71.3 (biphasic) SFA (proximal): 60.9 (biphasic) SFA (mid): Occluded/53.1 (biphasic) SFA (distal): 81.2 (monophasic) Popliteal artery: 22.7 (monophasic) MAGDALENE (prox.): 33.3 (monophasic) Tibioperoneal trunk: 19.8 (monophasic) FIRE TECHNICIAN (prox.): 21.9 (monophasic) FIRE TECHNICIAN (distal): 16.9 (monophasic) MAGDALENE (distal): 28.7 (monophasic) IMPRESSION: 1. Right lower extremity demonstrates patent bypass graft and patent but decreased flow through the qagan [place] arteries along with focal occlusion in the distal posterior tibial artery. 2. Left lower extremity demonstrates severe plaquing and a focal area of occlusion in the mid superficial femoral artery with subsequent revascularization and continued monophasic flow to the ankle. <Electronically signed by Tyrell Contreras > 09/03/20 [id number]
== END ==
LOC: M RAD 10:38
PROVIDERS: ATTEND Physician Assistant
DX: I70.213 Atherosclerosis of native arteries of extremities with intermittent claudication, bilateral legs (principal)

== ENCOUNTER → 2020-09-03 | Outpatient (REF) | payer OTHER | LOC: M LAB REF 18:28 | PROVIDERS: ATTEND Physician Assistant | DX: Z48.812 Encounter for surgical aftercare following surgery on the circulatory system (principal); L03.314 Cellulitis of groin ==

== ENCOUNTER → 2020-12-02 | Outpatient (CLI) | payer OTHER ==
[~2020-12-02] MED LIST changes: +GABA-283 PO; -GABA-845 PO
[2020-12-02 18:40] LABS: BASO # 0.1 10^3/uL (0.0-0.2); BASO % 0.8 % (0.0-1.0); EOS # 0.2 10^3/uL (0.0-0.5); HEMATOCRIT 49.6 % (36.0-47.0); HEMOGLOBIN 16.4 g/dl (12.0-15.5); LYMPH # 2.5 10^3/uL (1.5-5.0); LYMPH % 26.7 % (24.0-44.0); MEAN CORPUSCULAR HEMOGLOBIN 30.7 pg (27.0-33.0); MEAN CORPUSCULAR HGB CONC 33.1 g/dl (32.0-36.5); MEAN CORPUSCULAR VOLUME 92.7 fl (80.0-96.0); MONO % 10.4 % (2.0-8.0); NEUTROPHILS # 5.5 10^3/uL (1.5-8.5); NEUTROPHILS % 59.3 % (36.0-66.0); PLATELET COUNT, AUTOMATED 201 10^3/uL (150-450); RED BLOOD COUNT 5.35 10^6/uL (4.00-5.40); WHITE BLOOD COUNT 9.3 10^3/uL (4.0-10.0)
[2020-12-02 18:44] LABS: ALBUMIN 3.6 GM/DL (3.2-5.2); ALT/SGPT 21 U/L (12-78); BILIRUBIN,TOTAL 0.3 MG/DL (0.2-1.0); BLOOD UREA NITROGEN 21 MG/DL (7-18); CALCIUM LEVEL 8.9 MG/DL (8.8-10.2); CARBON DIOXIDE LEVEL 30 MEQ/L (21-32); CHLORIDE LEVEL 100 MEQ/L (98-107); CREATININE FOR GFR 0.91 MG/DL (0.55-1.30); GLOMERULAR FILTRATION RATE > 60.0 (>45); GLUCOSE, FASTING 341 MG/DL (70-100); NT-PRO BNP 432 PG/ML (<125); POTASSIUM SERUM 4.5 MEQ/L (3.5-5.1); SODIUM LEVEL 138 MEQ/L (136-145); TOTAL PROTEIN 6.9 GM/DL (6.4-8.2)
[2020-12-02 18:53] LABS: INR 0.88; PARTIAL THROMBOPLASTIN TIME 27.4 SECONDS (25.9-37.0); PROTHROMBIN TIME 12.3 SECONDS (12.7-14.5)
[2020-12-02 19:23] LABS: HEMOGLOBIN A1c 10.4 %
== END ==
LOC: M PLALAB 14:17
PROVIDERS: ATTEND Physician Assistant Medical
DX: I73.9 Peripheral vascular disease, unspecified (principal); I11.0 Hypertensive heart disease with heart failure; I50.40 Unspecified combined systolic (congestive) and diastolic (congestive) heart failure

== ENCOUNTER 2021-01-03 16:45 | Emergency (ER) | payer OTHER ==
[~2021-01-03] VITALS: Ht 165.1 cm; Wt 107.8 kg
[2021-01-03 16:45] VITALS: BP 171/79
== END 2021-01-03 17:53 | disposition left against medical advice (07) ==
LOC: M ED 16:45
DX: Z53.29 Procedure and treatment not carried out because of patient's decision for other reasons (principal)

== ENCOUNTER → 2021-03-04 | Outpatient (CLI) | payer OTHER | LOC: M LABSMTC 09:08 | PROVIDERS: ATTEND Anesthesiology | DX: Z01.812 Encounter for preprocedural laboratory examination (principal); Z20.822 Contact with and (suspected) exposure to COVID-19 ==

== ENCOUNTER 2021-03-09 07:18 | Day surgery (SDC) | payer OTHER ==
[~2021-03-09] VITALS: Ht 162.6 cm; Wt 113.4 kg
[~2021-03-09 07:18] MED LIST changes: +NS 1,000 ML IV ONE
--- OUTSIDE RECORDS SUMMARY | 2021-03-09 07:22 | CCD ---
Author Author [facility] [employer] [facility] [employer] Organization [facility] [employer] Address Unknown Phone Unavailable Care Team Providers Care Metal Patternmaker Name Role Phone Lauren Will Unavailable PROBLEMS Type Condition ICD9-CM Code EAM60-AT Code Onset Dates Condition S tatus W/U Status Risk SNOMED Code Notes Problem Cervical cancer screening Z12.4 Active confirmed 712280868 Problem Breast cancer screening Z12.39 Active confirmed 324957978 Problem Type 2 diabetes mellitus with unspecified complications E11.8 Active confirmed 94078727 Problem Tobacco use Z72.0 Active confirmed 02298218 0 Problem Type 2 diabetes mellitus with other specified complication E11.69 Active confirmed 14312915 Problem Obesity, unspecified obesity severity, unspecified obe sity type E66.9 Active confirmed 711960754 Problem Closed compression fracture of thoracic vertebra, sequela S22.000S Active confirmed 132394296 Problem Nonproliferative retinopathy due to secondary diabetes E13.3299 Active confirmed 798693078 Problem Vitamin D deficiency E55.9 Active confirmed 51542517 Problem Nonproliferative diabetic retinopathy E11.3299 A ctive confirmed 008022057 Problem Mixed stress and urge urinary incontinence N39.46 Active confirmed 858415862 Problem 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 Active confirmed 632649698727614 Problem Macrocytosis D75.89 Active confirmed 2327941 00 Problem Other age-related cataract of both eyes H25.89 Acti ve confirmed Problem PAD (peripheral artery disease) I73.9 Active confi rmed 440369449 Problem Postmenopausal Z78.0 Active confirmed 70227 008 Problem Age-related nuclear cataract, right eye H25.11 Active confirmed 187029557112261 Problem Colon cancer screening Z12.11 Active confirmed 720117569 Problem Coronary artery disease invo lving [place] [facility] without angina pectoris, unspecified vessel or lesion type I25.10 Active confirmed 84624859 Problem Essential hypertension I10 Active confirmed 21383179 Problem BALWINDER (obstructive sleep apnea) G47.33 Active confirm ed 13241813 Problem Paroxysmal atrial fibrillation I48.0 Active confir med 080517117 Problem Mixed hyperlipidemia E78.2 Active confirmed 674096482 Problem Stage 3 severe COPD by GOLD classification J44.9 Active confirmed 866967261 ALLERGIES Allergen (clinical drug ingredient) Drug/Non Drug Allergy do cumented on EMR Reaction Allergy Type Onset Date Status atorvastatin Lipitor([facility] Code:[address]-19) legs cramp Drug Allergy Active ENCOUNTERS from 1960 to 2020-12-22 Encounter Location Date Provider Diagnosis [address] [phone] [place] [address] Nov, Lauren Will Type 2 diabetes mellitus wit h unspecified complications E11.8 IMMUNIZATIONS Vaccine Route Administration Date Status Influenza 6mo & up Fluzone Unknown November 17, 2016 Pendi ng Influenza 6mo & up Fluzone Unknown July 20, 2016 Other s Influenza 6mo & up Fluzone Unknown October 17, 2014 Refus ed SOCIAL HISTORY Tobacco Use: Social History Observation Description Date Details (start date - stop date) Former Smoker Sex Assigned At : Social History Observation Description Sex Assigned At Unknown Education: Question Answer Notes Level of Education: Finished High School Audit Question Answer Notes Total Score: 0 Interpretation: Alcohol Education Language: Question Answer Notes Languages spoken: Swedish Sexual Hx: Question Answer Notes Had sex in the last 12 months (vaginal, oral, or anal)? No Have you ever had an STD? No Drug and Alcohol Question Answer Notes Total Score: 0 Interpretation: No problems reported Alcohol Screening: Question Answer Notes Did you have a drink containing alcohol in the past year? No Points 0 Interpretation Negative BMI Care Goal Follow-Up Question Answer Notes Above Normal BMI Follow-Up Lifestyle education regarding t Tobacco Use: Question Answer Notes Are you a: former smoker Smoking Cessation Information Given 07/28/2020 How long has it been since you last smoked? quit 2weeks ago REASON FOR REFERRAL No Information VITAL SIGNS No information MEDICATIONS Medication SIG (Take, Route, Frequency, Duration) Notes Start Da te End Date Status Rosuvastatin Calcium 5 MG 1 tablet Orally Once a day 2020 Active FreeStyle Fabian 14 Day Sensor - 1 sensor topically 2 weeks for 3 0 Days Jul, Active Venlafaxine HCl ER 37.5 MG 1 capsule with food & c 150 mg venlafaxine Orally Once a day Active Basaglar 100 UNIT/ML - Solution 35 units Subcutaneous before bedtime for 30 days Active Zetia 10 MG 1 tablet Orally Once a day Active Gabapentin 100 MG 1 capsule Orally three times daily Active Admelog 100 UNIT/ML 10 units Subcutaneous sliding scale before meals Active metFORMIN HCl ER 500 MG 2 tablet with meals Orally once daily r 30 duplicate Not-Taking BD Pen Needle Olga U/F 32G X 4 MM as directed _ before bedtime Active Methocarbamol 500 MG 1 tablets Orally every 6 hrs for 30 Days Not-Taking OneTouch Verio - one application In Vitro _ for 30 day(s) Active amLODIPine Besylate 5 MG 1 tablet Orally Once a day Active Acetaminophen 500 MG 1 tablet as needed Orally every 8 hrs Active Depend Underwear Large - 1 diaper topically Daily for 30 days Nov, Active Clopidogrel Bisulfate 75 MG 1 tablet Orally Once a day Active metFORMIN HCl ER 500 MG 2 tablet with meals Orally once daily Active One Touch Verio Kit 1 strip subcutaneously twice daily for 30 days Active BD Ultra-fine Pen [address] 32G 4mm 1 injection dx code E11.9 intramuscularly daily bedtime for 30 days Nov, Active BD Insulin Syringe 30G X 1/2" 0.5 ML as directed subcu taneously four times daily as needed DX: E11.9 for 30 Days Mar, Active One Touch Ultra 2 Lancet 1 lancet subcutaneously twic e daily, as needed for 30 day(s) Active WebStart Bristole [place] - 1 device to read sensor topically Daily for 999 days Jul, Active Lisinopril 40 MG 1 tablet Orally Once a day Active Aspirin Adult Low Dose 81 MG 1 tablet Orally Once a day Active HumuLIN N KwikPen 100 UNIT/ML use sliding scale given to pt. mddose of 40units Subcutaneous c pm, noon meals Ac tive PROCEDURES No Information RESULTS No Results REASON FOR VISIT basaglar refill MEDICAL (GENERAL) HISTORY Type Description Date Medical History T2DM IR Medical History hypertension, essential Medical History CAD ap previous IWMI, sp LACIE-08/12/19 RST low risk-[place] Medical History COPD-GOld Stage III-pfts @ [facility] 01/04/2015 FEV1 36% pre-dilator after 348%;FEV1/FVC ratio 86 pre/79 post dilator some small airway dis. Medical History Pulm. nodules in LLL9mm, 6mm on CT of A& P 07/2013 Medical History S/p colonoscopy c 2 small re ctal polyps out 08/20/15 found mild sigmoid, desc. colon diverticulosis, 1st degree int. hems. Dr. Winter [facility] path. serrated adenoma, tub. adenoma 2 polyps from rectum Medical History Eye consult 10/28/15 c CXener for Sight c mild nonproliferative diabetac neuropathy Medical History Pancreatitis 05/19 in ED Lipase 4k Medical History BALWINDER, unpalliated-unable to tolerate CPAP Medical History mild PHTN, mild , LVEF 65% by 09/03/19 T TE-[place] Medical History chronic 1 AVB Surgical History s/p Lap. Cholecystectomy -Dr. Winter 2000 Surgical History Ovarian cystectomies-[facility] Surgical History Colonoscopy-2 tub. adens. -Dr. Winter f/u 3Y 2015 Surgical History Right Femoral Endarterectomy- and 07/2020 Hospitalization History Mild Pancreatitis, acalculus , T2DM, CP, AL r/o c neg. cardiac enzymes 01/26/13-01/27/13 Hospitalization History [facility] Syncopial episodes 08/2019 Hospitalization History Right Femoral Endarterectomy 021 Goals Section No Information Health Concerns No Information MEDICAL EQUIPMENT No Information MENTAL STATUS No Information FUNCTIONAL STATUS No Information ASSESSMENTS Encounter Date Diagnosis Assessment Notes Treatment Notes Treatm ent Clinical Notes Nov, Type 2 diabetes mellitus wit h unspecified complications (ICD-10 - E11.8) PLAN OF TREATMENT Medication Medication Name Sig Start Date Stop Date amLODIPine Besylate 5 MG 1 tablet Orally Once a day Lisinopril 40 MG 1 tablet Orally Once a day Aspirin Adult Low Dose 81 MG 1 tablet Orally Once a day Clopidogrel Bisulfate 75 MG 1 tablet Orally Once a day Venlafaxine HCl ER 37.5 MG 1 capsule with food & c 150 mg venlafaxine Orally Once a day HumuLIN N KwikPen 100 UNIT/ML use sliding scale given to pt. mddose of 40units Subcutaneous c pm, noon meals Gabapentin 100 MG 1 capsule Orally three times daily BD Ultra-fine Pen [address] 32G 4mm 1 injection dx code E11.9 intramuscularly daily bedtime for 30 days Nov, metFORMIN HCl ER 500 MG 2 tablet with meals Orally once daily Acetaminophen 500 MG 1 tablet as needed Orally every 8 hrs Rosuvastatin Calcium 5 MG 1 tablet Orally Once a day Jul, Basaglar 100 UNIT/ML - Solution 35 units Subcutaneous before bedtime for 30 days Zetia 10 MG 1 tablet Orally Once a day Next Appt Details Provider Name:Aydin Stiles, 2021-01-25 0 9:45:00 AM, [address] [place] [address], , [place], [phone], Insurance Providers Payer Name Payer Address Payer Phone Insured Name Patient Relati onship to Insured Coverage Start Date Coverage End Date [facility] [place] [address] [facility] [phone] ELIJAH ESTRADA self
--- OUTSIDE RECORDS SUMMARY | 2021-03-09 07:22 | CCD | Continuity of Care Document ---
Author Author Malinda EMERY MD Organization Unknown Address [address] [place] [address] Phone [phone] Care Team Providers Care Channel Opener Outsoles Name Role Phone Lauren Will AUTM Vladimir Hackett M.D. AUTM [phone] AUTM Unavailable [facility] Records AUTM [phone] E Pre Op AUTM [phone] Problems Active Problems Provider Date Essential hypertension Ana Steiner MD Onset: 9 Social History Type Date Description Comments Sex Unknown ETOH Use Denies alcohol use Tobacco Use Start: Unknown Smokes 1 Pack A Day Recreational Drug Use Denies Drug Use Tobacco Use Start: Unknown Report Cessation Counseling Was Provided Smoking Status Reviewed: 09/21/20 Report Cessation Counseling W as Provided Allergies and adverse reactions Active Allergies Criticality Reaction | Severity Comments Date Lipitor Unable to assess criticality Difficulty walking 10/02/2018 Medications Active Medications SIG Qnty Indications Ordering Provide r Date Magnesium Citrate 1.745GM/30ML Betina ution one 10 oz bottle green or clear only, use for additional prep at 2-3 days before procedure 296ml Z86.010 Matt Emery MD 02/11/2021 Miralax 17GM/Scoop Powder use as directed see dr emery colon preparation instructions 510gm Z86.010 Krzysztof Emery MD 02/11/2021 Levofloxacin 500mg Tablets 1 by mouth daily x 7 days 7tabs I70.213 Ana Steiner MD 09/03/2020 Lactobacillus Tablets 1 by mouth three times a day wm 90tabs I70.213 Ana Steiner MD 09/03/2020 Cholestyramine 4GM/Dose Powder 4 gm by mouth two two times a day (diarrhea) 756gm K58.2 Matt bloom MD 06/09/2020 Metformin HCL ER (Mod) 500mg Tablets ER 24HR 1 by mouth twicw a day Unknown Aspir-Low 81mg Tablets DR antonio Unknown Lisinopril 20mg Tablets once a day Unknown Basaglar Kwikpen 100 Unit/ML Solution Pen-Inject 35Units once a day Unknown 0 Amlodipine Besylate 5mg Tablets 1 qd Unknown Ezetimibe 10mg Tablets 1 by mouth every day Unknown Admagel Sliding Scale Unknown Clopidogrel Bisulfate 75mg Tablets every day 30tabs Unknown History Medications Doxycycline Hyclate 100mg Capsules 1 by mouth twice a day x 7 days 14caps I70.213 Ana Steiner MD 09/03/2020 - 01/12/2021 Cephalexin 500mg Capsules 1 by mouth three times a day x 10days 30caps I70.213 Ana Steiner MD 2020 - 09/06/2020 Immunizations Description No Information Available Vital Signs Date Vital Result Comment 02/11/2021 3:27pm BP Systolic 158 mmHg BP Diastolic 80 mmHg Height 65 inches 5'5" Weight 246.00 lb BMI (Body Mass Index) 40.9 kg/m2 Antonito Body Weight 125 lb Weight 111.586 kg BSA (Body Surface Area) 2.16 m2 09/21/2020 1:56pm BP Systolic 142 mmHg BP Diastolic 88 mmHg Height 65 inches 5'5" Weight 237.00 lb BMI (Body Mass Index) 39.4 kg/m2 Antonito Body Weight 125 lb Weight 107.503 kg BSA (Body Surface Area) 2.13 m2 Results Test Acquired Date Facility Test Result H/L Range Note Wound Culture And Gram St 09/03/2020 [facility] [place] [address] [phone] Gram Stain (SEE NOTE) Normal 1 Wound Culture FULL REPORT IN L <SEE NOTE> Normal 2 1 FEW WBCS NO ORGANISMS SEEN 2 FULL REPORT IN LAB NOTES (eC W and Med[facility]). ORGANISM 1: ENTEROCOCCUS FAECALIS QUANTITY OF GROWTH FEW ORGANISM 2: STAPHYLOCOCCUS AUREUS QUANTITY OF GROWTH FEW ORGANISM 1: ENTEROCOCCUS FAECALIS ORGANISM 2: STAPHYLOCOCCUS AUREUS ENTEROCOCCUS FAECALIS: REACTION TETRACYCLINE PO 250 mg qid <=1 S PENICILLIN G IV 1 mu q6H 2 S PENICILLIN G IV 1 mu q6h 2 S PENICILLIN G PO 250mg q6h fasting 2 S AMPICILLIN IV 500mg q6h <=2 S AMPICILLIN PO 500mg q6h fasting <=2 S ERYTHROMYCIN IV 500mg q6h 2 I ERYTHROMYCIN PO 500mg q6h 2 I GENTAMICIN 500 IV 80mg q8h S LEVOFLOXACIN IV 500mg qd 0.5 S LEVOFLOXACIN PO 250mg qd 0.5 S LEVOFLOXACIN PO 500mg qd 0.5 S CIPROFLOXACIN IV 400mg bid <=0.5 S CIPROFLOXACIN PO 500mg q12h <=0.5 S VANCOMYCIN IV 500mg q8h 1 S LINEZOLID (ZYVOX) IV 600MG Q12HR 2 S LINEZOLID (ZYVOX) PO 600MG Q12HR 2 S STAPHYLOCOCCUS AUREUS: REACTION ICR (INDUCIBLE CC RESISTANCE) IV ICR TEST RESULT TETRACYCLINE PO 250 mg qid <=1 S PENICILLIN G IV 1 mu q6H >=0.5 R PENICILLIN G IV 1 mu q6h >=0.5 R PENICILLIN G PO 250mg q6h fasting >=0.5 R TRIMETHOPRIM/SULFAMETHOXAZOLE IV 160mg TMP & 800mg SMXq6h <=10 S TRIMETHOPRIM/SULFAMETHOXAZOLE PO Bactrim DS Bid <=10 S ERYTHROMYCIN IV 500mg q6h 0.5 S ERYTHROMYCIN PO 500mg q6h 0.5 S GENTAMICIN IV 80mg q8h <=0.5 S CLINDAMYCIN IV 600mg q6h 0.25 S CLINDAMYCIN PO 150mg q6h 0.25 S NITROFURANTOIN PO 100mg BID <=16 S OXACILLIN IV 500mg q6h <=0.25 S VANCOMYCIN IV 500mg q8h 1 S LINEZOLID (ZYVOX) IV 600MG Q12HR 1 S LINEZOLID (ZYVOX) PO 600MG Q12HR 1 S An isolate with a (+) POSITIVE ICR test is considered CLINDAMYCIN RESISTANT; however, clindamycin may still be effective in some patients. An isolate with a (-) NEGATIVE ICR test is considered CLIDAMYCIN SENSITIVE. Oxacillin result predicts susceptibility to all penicillinase-stable penicillins (Nafcillin, Dicloxacilin), Cephalosporins, Carbapenems, Amoxicillin/Clavulanate & Ampicillin/Sulbactam per CSLI standards. Procedures Date Code Description Status 02/11/2021 63496 Office/Outpatient Established Lo w MDM 20-29 Min Completed Medical Devices Description No Information Available Encounters Type Date Location Provider Dx Diagnosis Office Visit 02/11/2021 3:15p [facility] Gastroenterology [facility] griffin Emery MD Z86.010 Personal history of colonic polyps Office Visit 09/21/2020 1:45p [facility] [place] I70.213 [place] arteries of extrm w intrmt [place], bi legs Z95.828 Presence of other vascular i mplants and grafts F17.210 Nicotine dependence, cigaret aimee, uncomplicated Z48.812 Encntr for surgical aftcr fo llowing surgery on the circ sys Office Visit 09/10/2020 9:00a [facility] [place] I70.213 [place] arteries of extrm w intrmt [place], bi legs Z95.828 Presence of other vascular i mplants and grafts F17.210 Nicotine dependence, cigaret aimee, uncomplicated Z48.812 Encntr for surgical aftcr fo llowing surgery on the circ sys Office Visit 09/07/2020 1:00p [facility] Practice [place] I70.213 [place] arteries of extrm w intrmt [place], bi legs Z95.828 Presence of other vascular i mplants and grafts F17.210 Nicotine dependence, cigaret aimee, uncomplicated Z48.812 Encntr for surgical aftcr fo llowing surgery on the circ sys Office Visit 09/03/2020 1:45p [facility] Practice [place] I70.213 [place] arteries of extrm w intrmt [place], bi legs Z95.828 Presence of other vascular i mplants and grafts F17.210 Nicotine dependence, cigaret aimee, uncomplicated Z48.812 Encntr for surgical aftcr fo llowing surgery on the circ sys Office Visit 08/24/2020 9:00a [facility] [place] I70.213 [place] arteries of extrm w intrmt [place], bi legs Z95.828 Presence of other vascular i mplants and grafts I65.23 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 F17.210 Nicotine dependence, cigaret aimee, uncomplicated Z48.812 Encntr for surgical aftcr fo llowing surgery on the circ sys Office Visit 08/14/2020 9:00a [facility] [place] I70.213 [place] arteries of extrm w intrmt [place], bi legs I65.23 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 F17.210 Nicotine dependence, cigaret aimee, uncomplicated Z95.828 Presence of other vascular i mplants and grafts Z48.812 Encntr for surgical aftcr fo llowing surgery on the circ sys Assessments Date Code Description Provider 02/11/2021 Z86.010 Personal history of colonic poly ps Matt Emery MD 09/21/2020 I70.213 Atherosclerosis of n ative arteries of extremities with intermittent claudication, bilateral legs BISMARK Thomason 09/21/2020 Z95.828 Presence of other vascular impla nts and grafts BISMARK Thomason 09/21/2020 F17.210 Nicotine dependence, cigarettes, uncomplicated BISMAKR Thomason 09/21/2020 Z48.812 Encounter for surgic al aftercare following surgery on the circulatory system [facility] Thomason 09/10/2020 I70.213 Atherosclerosis of n ative arteries of extremities with intermittent claudication, bilateral legs BISMARK Thomason 09/10/2020 Z95.828 Presence of other vascular impla nts and grafts BISMARK Thomason 09/10/2020 F17.210 Nicotine dependence, cigarettes, uncomplicated BISMARK Thomason 09/10/2020 Z48.812 Encounter for surgic al aftercare following surgery on the circulatory system BISMARK Thomason 09/07/2020 I70.213 Atherosclerosis of n ative arteries of extremities with intermittent claudication, bilateral legs BISMARK Thomason 09/07/2020 Z95.828 Presence of other vascular impla nts and grafts BISMARK Thomason 09/07/2020 F17.210 Nicotine dependence, cigarettes, uncomplicated BISMARK Thomason 09/07/2020 Z48.812 Encounter for surgic al aftercare following surgery on the circulatory system BISMARK Thomason 09/03/2020 I70.213 Atherosclerosis of n ative arteries of extremities with intermittent claudication, bilateral legs BISMARK Thomason 09/03/2020 Z95.828 Presence of other vascular impla nts and grafts BISMARK Thomason 09/03/2020 F17.210 Nicotine dependence, cigarettes, uncomplicated BISMARK Thomason 09/03/2020 Z48.812 Encounter for surgic al aftercare following surgery on the circulatory system BISMARK Thomason 08/24/2020 I70.213 Atherosclerosis of n ative arteries of extremities with intermittent claudication, bilateral legs BISMARK Thomason 08/24/2020 Z95.828 Presence of other vascular impla nts and grafts BISMARK Thomason 08/24/2020 I65.23 Occlusion and stenosis of bilate ral carotid arteries BISMARK Thomason 08/24/2020 F17.210 Nicotine dependence, cigarettes, uncomplicated BISMARK Thomason 08/24/2020 Z48.812 Encounter for surgic al aftercare following surgery on the circulatory system BISMARK Thomason 08/14/2020 I70.213 Atherosclerosis of n ative arteries of extremities with intermittent claudication, bilateral legs BISMARK Thomason 08/14/2020 I65.23 Occlusion and stenosis of bilate ral carotid arteries BISMARK Thomason 08/14/2020 F17.210 Nicotine dependence, cigarettes, uncomplicated BISMARK Thomason 08/14/2020 Z95.828 Presence of other vascular impla nts and grafts BISMARK Thomason 08/14/2020 Z48.812 Encounter for surgic al aftercare following surgery on the circulatory system BISMARK Thomason Plan of Treatment 02/11/2021 - Matt Emery MD* Z86.010 Personal history of colonic polyps* New Medication:* Magnesium Citrate 1.745 GM/30ML * Miralax 17 GM/Scoop * New Orders:* Colonoscopy, Ordered: 02/11/21 Functional Status Description No Information Available Mental Status Description No Information Available Referrals Refer to Reason for Referral Status Appt Date Matt Emery M.D. K63.5-POLYP OF COLON Created [facility], Gastroenterology [address] [place] [address], [address] [address] [phone] Matt Emery M.D. R19.5-OTHER FECAL ABNORMALITIES K63.5-PO LYP OF COLON Scheduled 10/05/2020 [facility], Gastroenterology [address] [place] [address], [address] [id number] [phone]
--- OUTSIDE RECORDS SUMMARY | 2021-03-09 07:22 | CCD ---
Author Author [facility] [facility] Organization [facility] [employer] [facility] Address Unknown Phone Unavailable Care Team Providers Care Gas Producer Name Role Phone Lauren Will Unavailable PROBLEMS Type Condition ICD9-CM Code WNC29-VM Code Onset Dates Condition S tatus W/U Status Risk SNOMED Code Notes Problem Cervical cancer screening Z12.4 Active confirmed 120054110 Problem Breast cancer screening Z12.39 Active confirmed 709011430 Problem Type 2 diabetes mellitus with unspecified complications E11.8 Active confirmed 56333264 Problem Tobacco use Z72.0 Active confirmed 58397227 0 Problem Type 2 diabetes mellitus with other specified complication E11.69 Active confirmed 61015065 Problem Obesity, unspecified obesity severity, unspecified obe sity type E66.9 Active confirmed 632391191 Problem Closed compression fracture of thoracic vertebra, sequela S22.000S Active confirmed 084465506 Problem Nonproliferative retinopathy due to secondary diabetes E13.3299 Active confirmed 131656354 Problem Vitamin D deficiency E55.9 Active confirmed 39583145 Problem Nonproliferative diabetic retinopathy E11.3299 A ctive confirmed 957985511 Problem Mixed stress and urge urinary incontinence N39.46 Active confirmed 579951634 Problem 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 Active confirmed 704533215790228 Problem Macrocytosis D75.89 Active confirmed 6418826 00 Problem Other age-related cataract of both eyes H25.89 Acti ve confirmed Problem PAD (peripheral artery disease) I73.9 Active confi rmed 654707072 Problem Postmenopausal Z78.0 Active confirmed 83393 008 Problem Age-related nuclear cataract, right eye H25.11 Active confirmed 164382742467147 Problem Colon cancer screening Z12.11 Active confirmed 718312886 Problem Coronary artery disease invo lving algaaciq heart without angina pectoris, unspecified vessel or lesion type I25.10 Active confirmed 60936087 Problem Essential hypertension I10 Active confirmed 77908426 Problem BALWINDER (obstructive sleep apnea) G47.33 Active confirm ed 04857136 Problem Paroxysmal atrial fibrillation I48.0 Active confir med 671832443 Problem Mixed hyperlipidemia E78.2 Active confirmed 955667543 Problem Stage 3 severe COPD by GOLD classification J44.9 Active confirmed 413848745 ALLERGIES Allergen (clinical drug ingredient) Drug/Non Drug Allergy do cumented on EMR Reaction Allergy Type Onset Date Status atorvastatin Lipitor([facility] Code:[address]-55) legs cramp Drug Allergy Active ENCOUNTERS from 1959 to 2020-12-17 Encounter Location Date Provider Diagnosis [place] [address] [facility] [phone] [place] [address] Nov, Lauren Will IMMUNIZATIONS Vaccine Route Administration Date Status Influenza [...] Education Language: Question Answer Notes Languages spoken: Malawian Sexual Hx: Question Answer Notes Had sex [...] - Solution 35 units Subcutaneous before bedtime Active Zetia 10 MG 1 tablet Orally Once a day Active Gabapentin 100 MG 1 capsule Orally three times daily Active Admelog 100 UNIT/ML 10 units Subcutaneous sliding scale before meals Active metFORMIN HCl ER 500 MG 2 tablet with meals Orally once daily fo r 30 duplicate Not-Taking BD Pen Needle [...] for 30 days Active BD Ultra-fine Pen [place] 32G 4mm 1 injection dx code E11.9 intramuscularly daily bedtime for 30 days Nov, Active BD Insulin Syringe 30G X 1/2" 0.5 ML as directed subcu taneously four times daily as needed DX: E11.9 for 30 Days Mar, Active One Touch Ultra 2 Lancet 1 lancet subcutaneously twic e daily, as needed for 30 day(s) Active Drone.ioe Jewell - 1 device to read sensor topically [...] Information RESULTS No Results REASON FOR VISIT New Refill Request MEDICAL (GENERAL) HISTORY Type Description Date Medical [...] diverticulosis, 1st degree int. hems. Dr. Winter [facility] path. serrated adenoma, tub. adenoma 2 polyps from rectum Medical History Eye consult 10/28/15 c CXener for Sight c mild nonproliferative diabetac neuropathy Medical History Pancreatitis 05/19 in ED Lipase 4k Medical History BALWINDER, unpalliated-unable to tolerate CPAP Medical History mild PHTN, mild , LVEF 65% by 09/03/19 T TE-Hackett Medical History chronic 1 AVB Surgical History s/p Lap. Cholecystectomy -Dr. Winter 2000 Surgical History Ovarian cystectomies-[facility] Surgical History Colonoscopy-2 tub. adens. -Dr. Winter f/u 3Y 2015 Surgical History Right Femoral Endarterectomy- and 07/2020 Hospitalization History Mild Pancreatitis, acalculus , T2DM, CP, [place] r/o c neg. cardiac enzymes 01/26/13-01/27/13 Hospitalization History [facility] Syncopial episodes 08/2019 Hospitalization History Right Femoral Endarterectomy 021 Goals Section No Information Health Concerns No Information MEDICAL EQUIPMENT No Information MENTAL STATUS No Information FUNCTIONAL STATUS No Information ASSESSMENTS No Information PLAN OF TREATMENT Medication Medication Name Sig [...] Orally three times daily BD Ultra-fine Pen [place] 32G 4mm 1 injection dx code E11.9 intramuscularly daily bedtime for 30 days Nov, metFORMIN HCl ER 500 MG 2 tablet with meals Orally once daily Acetaminophen 500 MG 1 tablet as needed Orally every 8 hrs Rosuvastatin Calcium 5 MG 1 tablet Orally Once a day Jul, Basaglar 100 UNIT/ML - Solution 35 units Subcutaneous before bed time Zetia 10 MG 1 tablet Orally Once a day Next Appt Details Provider Name:Aydin Stiles, 2021-01-25 0 9:45:00 AM, [address] [facility], , [place], [address], Insurance Providers Payer Name Payer Address Payer Phone Insured Name Patient Relati onship to Insured Coverage Start Date Coverage End Date [facility] [address] [facility] [phone] ELIJAH ESTRADA self
--- OUTSIDE RECORDS SUMMARY | 2021-03-09 07:22 | CCD ---
Author Author [facility]st [facility] Organization [facility] [employer] [facility] Address Unknown Phone Unavailable Care Team Providers Care Discotheque Dancer Name Role Phone Lauren Will Unavailable PROBLEMS Type Condition ICD9-CM Code FMC14-CO Code Onset Dates Condition S tatus W/U Status Risk SNOMED Code Notes Problem Cervical cancer screening Z12.4 Active confirmed 941664029 Problem Breast cancer screening Z12.39 Active confirmed 291652580 Problem Type 2 diabetes mellitus with unspecified complications E11.8 Active confirmed 49536072 Problem Tobacco use Z72.0 Active confirmed 42456170 0 Problem Type 2 diabetes mellitus with other specified complication E11.69 Active confirmed 47108505 Problem Obesity, unspecified obesity severity, unspecified obe sity type E66.9 Active confirmed 368630791 Problem Closed compression fracture of thoracic vertebra, sequela S22.000S Active confirmed 768076091 Problem Nonproliferative retinopathy due to secondary diabetes E13.3299 Active confirmed 172790866 Problem Vitamin D deficiency E55.9 Active confirmed 23483299 Problem Nonproliferative diabetic retinopathy E11.3299 A ctive confirmed 767799586 Problem Mixed stress and urge urinary incontinence N39.46 Active confirmed 469906218 Problem 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 Active confirmed 686019347212924 Problem Macrocytosis D75.89 Active confirmed 2609091 00 Problem Other age-related cataract of both eyes H25.89 Acti ve confirmed Problem PAD (peripheral artery disease) I73.9 Active confi rmed 991741790 Problem Postmenopausal Z78.0 Active confirmed 77835 008 Problem Age-related nuclear cataract, right eye H25.11 Active confirmed 970182489545257 Problem Colon cancer screening Z12.11 Active confirmed 971538996 Problem Coronary artery disease invo lving bishop paiute heart without angina pectoris, unspecified vessel or lesion type I25.10 Active confirmed 67189763 Problem Essential hypertension I10 Active confirmed 98691654 Problem BALWINDER (obstructive sleep apnea) G47.33 Active confirm ed 62289188 Problem Paroxysmal atrial fibrillation I48.0 Active confir med 108675842 Problem Mixed hyperlipidemia E78.2 Active confirmed 102139155 Problem Stage 3 severe COPD by GOLD classification J44.9 Active confirmed 200066464 ALLERGIES Allergen (clinical drug ingredient) Drug/Non Drug Allergy do cumented on EMR Reaction Allergy Type Onset Date Status atorvastatin Lipitor([facility] Code:[address]-63) legs cramp Drug Allergy Active ENCOUNTERS from 1959 to 2020-12-17 Encounter Location Date Provider Diagnosis [place] [address] [facility] [phone] [place] [address] Nov, Lauren Will IMMUNIZATIONS Vaccine Route Administration [...] Education Language: Question Answer Notes Languages spoken: Pakistani Sexual Hx: Question Answer Notes Had sex [...] for 30 days Active BD Ultra-fine Pen [place] 32G 4mm 1 injection dx code E11.9 intramuscularly daily bedtime for 30 days Nov, Active BD Insulin Syringe 30G X 1/2" 0.5 ML as directed subcu taneously four times daily as needed DX: E11.9 for 30 Days Mar, Active One Touch Ultra 2 Lancet 1 lancet subcutaneously twic e daily, as needed for 30 day(s) Active [employer] Roland - 1 device to read sensor topically [...] Information RESULTS No Results REASON FOR VISIT Hackett MEDICAL (GENERAL) HISTORY Type Description Date Medical [...] diverticulosis, 1st degree int. hems. Dr. Winter [facility] path. serrated adenoma, tub. adenoma 2 polyps from rectum Medical History Eye consult 10/28/15 c CXener for Sight c mild nonproliferative diabetac neuropathy Medical History Pancreatitis 05/19 in ED Lipase 4k Medical History BALWINDER, unpalliated-unable to tolerate CPAP Medical History mild PHTN, mild , LVEF 65% by 09/03/19 T [facility]-Hackett Medical History chronic 1 AVB Surgical History s/p Lap. Cholecystectomy -Dr. Winter 2000 Surgical History [facility] Surgical History Colonoscopy-2 tub. adens. -Dr. Winter f/u 3Y 2015 Surgical History Right Femoral Endarterectomy- and 07/2020 Hospitalization History Mild Pancreatitis, acalculus , T2DM, CP, [place] r/o c neg. cardiac enzymes 01/26/13-01/27/13 Hospitalization [...] Orally three times daily BD Ultra-fine Pen [place] 32G 4mm 1 injection dx code E11.9 [...] Name:Aydin Stiles, 2021-01-25 0 9:45:00 AM, [address] [facility], , [place], [address], Insurance Providers Payer Name Payer Address Payer Phone Insured Name Patient Relati onship to Insured Coverage Start Date Coverage End Date [facility] [facility] [address] [facility] [phone] ELIJAH ESTRADA self
--- OUTSIDE RECORDS SUMMARY | 2021-03-09 07:22 | CCD | Continuity of Care Document ---
Author Author Malinda EMERY MD Organization Unknown Address [address] [place] [address] Phone [phone] Care Team Providers Care Senior Water Resources Engineer Name Role Phone Lauren Will AUTM Vladimir Hackett M.D. AUTM [phone] AUTM Unavailable [facility] Records AUTM [phone] E Pre Op AUTM [phone] Problems Active Problems Provider Date Essential hypertension [...] lb BMI (Body Mass Index) 40.9 kg/m2 [place] Body Weight 125 lb Weight 111.586 kg BSA (Body Surface Area) 2.16 m2 09/21/2020 1:56pm BP Systolic 142 mmHg BP Diastolic 88 mmHg Height 65 inches 5'5" Weight 237.00 lb BMI (Body Mass Index) 39.4 kg/m2 [place] Body Weight 125 lb Weight 107.503 kg BSA (Body Surface Area) 2.13 m2 Results Test Acquired Date Facility Test Result H/L Range Note Wound Culture And Gram St 09/03/2020 [facility] [place] [address] [phone] Gram Stain (SEE NOTE) Normal 1 Wound [...] standards. Procedures Date Code Description Status 02/11/2021 84690 Office/Outpatient Established Lo w MDM 20-29 Min Completed Medical Devices Description No Information Available Encounters Type Date Location Provider Dx Diagnosis Office Visit 02/11/2021 3:15p [facility] Gastroenterology [facility] griffin Emery MD Z86.010 Personal history of colonic polyps Office Visit 09/21/2020 1:45p [facility] Surgery [facility] [place] I70.213 [place] arteries of extrm w [place]t [place], bi legs Z95.828 Presence of other vascular i mplants and grafts F17.210 Nicotine dependence, cigaret aimee, uncomplicated Z48.812 Encntr for surgical aftcr fo llowing surgery on the circ sys Office Visit 09/10/2020 9:00a [facility] Surgery Practice [place] I70.213 [place] arteries of extrm w [place]t [place], bi legs Z95.828 Presence of other vascular i mplants and grafts F17.210 Nicotine dependence, cigaret aimee, uncomplicated Z48.812 Encntr for surgical aftcr fo llowing surgery on the circ sys Office Visit 09/07/2020 1:00p [facility] Practice [place] I70.213 [place] arteries of extrm w [place]t [place], bi legs Z95.828 Presence of other vascular i mplants and grafts F17.210 Nicotine dependence, cigaret aimee, uncomplicated Z48.812 Encntr for surgical aftcr fo llowing surgery on the circ sys Office Visit 09/03/2020 1:45p [facility] Practice [place] I70.213 [place] arteries of extrm w [place]t [place], bi legs Z95.828 Presence of other vascular i mplants and grafts F17.210 Nicotine dependence, cigaret aimee, uncomplicated Z48.812 Encntr for surgical aftcr fo llowing surgery on the circ sys Office Visit 08/24/2020 9:00a [facility] Surgery [facility] [place] I70.213 [place] arteries of extrm w [place]t [place], bi legs Z95.828 Presence of other vascular i mplants and grafts I65.23 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 K63.5-POLYP OF COLON Created [facility], Gastroenterology [address] [place] [address], [address] [address] [phone] Matt Emery M.D. R19.5-OTHER FECAL ABNORMALITIES K63.5-PO LYP OF COLON Scheduled 10/05/2020 [facility], Gastroenterology [address] [place] [address], [address] [id number] [phone]
--- OUTSIDE RECORDS SUMMARY | 2021-03-09 07:22 | CCD ---
Author Author [facility] [employer] [facility] Organization [facility] Address Unknown Phone Unavailable Care Team Providers Care Automobile Mechanic Radiator Name Role Phone Lauren Will Unavailable PROBLEMS Type Condition ICD9-CM Code [id number] Code Onset Dates Condition S tatus W/U Status Risk SNOMED Code Notes Problem Cervical cancer screening Z12.4 Active confirmed 273426130 Problem Breast cancer screening Z12.39 Active confirmed 012610820 Problem Type 2 diabetes mellitus with unspecified complications E11.8 Active confirmed 60704350 Problem Tobacco use Z72.0 Active confirmed 37984355 0 Problem Type 2 diabetes mellitus with other specified complication E11.69 Active confirmed 21192204 Problem Obesity, unspecified obesity severity, unspecified obe sity type E66.9 Active confirmed 182756476 Problem Closed compression fracture of thoracic vertebra, sequela S22.000S Active confirmed 967462221 Problem Nonproliferative retinopathy due to secondary diabetes E13.3299 Active confirmed 855426723 Problem Vitamin D deficiency E55.9 Active confirmed 14483041 Problem Nonproliferative diabetic retinopathy E11.3299 A ctive confirmed 908085253 Problem Mixed stress and urge urinary incontinence N39.46 Active confirmed 546073893 Problem 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 Active confirmed 494600034263080 Problem Macrocytosis D75.89 Active confirmed 7829083 00 Problem Other age-related cataract of both eyes H25.89 Acti ve confirmed Problem PAD (peripheral artery disease) I73.9 Active confi rmed 300725187 Problem Postmenopausal Z78.0 Active confirmed 70817 008 Problem Age-related nuclear cataract, right eye H25.11 Active confirmed 888570116471129 Problem Colon cancer screening Z12.11 Active confirmed 512932641 Problem Coronary artery disease invo lving [place] heart without angina pectoris, unspecified vessel or lesion type I25.10 Active confirmed 88339379 Problem Essential hypertension I10 Active confirmed 56870444 Problem BALWINDER (obstructive sleep apnea) G47.33 Active confirm ed 52866702 Problem Paroxysmal atrial fibrillation I48.0 Active confir med 014146282 Problem Mixed hyperlipidemia E78.2 Active confirmed 357665119 Problem Stage 3 severe COPD by GOLD classification J44.9 Active confirmed 290278126 ALLERGIES Allergen (clinical drug ingredient) Drug/Non Drug Allergy do cumented on EMR Reaction Allergy Type Onset Date Status atorvastatin Lipitor([facility] Code:[address]-86) legs cramp Drug Allergy Active ENCOUNTERS from 1960 to 2020-12-17 Encounter Location Date Provider Diagnosis [place] [address] [facility] [phone] [place] [address] Nov, Lauren Will IMMUNIZATIONS Vaccine Route Administration [...] Education Language: Question Answer Notes Languages spoken: Dominican Sexual Hx: Question Answer Notes Had sex [...] for 30 days Active BD Ultra-fine Pen [place] 32G 4mm 1 injection dx code E11.9 intramuscularly daily bedtime for 30 days Nov, Active BD Insulin Syringe 30G X 1/2" 0.5 ML as directed subcu taneously four times daily as needed DX: E11.9 for 30 Days Mar, Active One Touch Ultra 2 Lancet 1 lancet subcutaneously twic e daily, as needed for 30 day(s) Active [employer] [place] - 1 device to read sensor topically [...] Information RESULTS No Results REASON FOR VISIT Re:RE:Lew MEDICAL (GENERAL) HISTORY Type Description Date Medical History T2DM IR Medical History hypertension, essential Medical History CAD ap previous IWMI, sp LACIE-08/12/19 RST low risk-Hackett Medical History COPD-GOld Stage III-pfts @ C 01/04/2015 FEV1 36% pre-dilator after 348%;FEV1/FVC ratio 86 pre/79 post dilator some small airway dis. Medical History Pulm. nodules in LLL9mm, 6mm on CT of A& P 07/2013 Medical History S/p colonoscopy c 2 small re ctal polyps out 08/20/15 found mild sigmoid, desc. colon diverticulosis, 1st degree int. hems. Dr. Winter [facility] path. serrated adenoma, tub. adenoma 2 [...] Cholecystectomy -Dr. Winter 2000 Surgical History Ovarian cystectomies-[facility] Surgical History Colonoscopy-2 tub. adens. -Dr. Winter f/u 3Y 2015 Surgical History Right Femoral Endarterectomy- and 07/2020 Hospitalization History Mild Pancreatitis, acalculus , T2DM, CP, [place] r/o c neg. cardiac enzymes 01/26/13-01/27/13 Hospitalization [...] Orally three times daily BD Ultra-fine Pen Lisman 32G 4mm 1 injection dx code E11.9 [...] Name:Aydin Stiles, 2021-01-25 0 9:45:00 AM, [address] [facility], , [place], [address], Insurance Providers Payer Name Payer Address Payer Phone Insured Name Patient Relati onship to Insured Coverage Start Date Coverage End Date [facility] [employer] [facility] [address] [facility] [phone] ELIJAH ESTRADA self
--- OUTSIDE RECORDS SUMMARY | 2021-03-09 07:22 | CCD | Continuity of Care Document ---
Author Organization Unknown Address Unknown Phone Unavailable Care Team Providers Care Flatwork Presser Name Role Phone Lauren Will AUTM [phone] Yohannes Sparks MD AUTM [phone] Ana Steiner MD AUTM [phone] Matt De Luna MD AUTM [phone] Problems Active Problems Provider Date Precordial pain Vladimir Hackett MD Onset: 06/06/2019 Chronic combined systolic and diastolic heart failure Vladimir Hackett MD Onset: 06/06/2019 First degree atrioventricular block Vladimir Hackett MD Onse t: 06/06/2019 Electrocardiogram abnormal Vladimir Hackett MD Onset: 2019 History of myocardial infarction Vladimir Hackett MD Onset: 06/06/2019 Paroxysmal atrial fibrillation Vladimir Hackett MD Onset: Benign hypertensive heart disease with congestive card iac failure Vladimir Hackett MD Onset: 07/11/2019 Chronic obstructive lung disease Vladimir Hackett MD Onset: 07/11/2019 Obstructive sleep apnea syndrome Vladimir Hackett MD Onset: 07/11/2019 Peripheral vascular disease Vladimir Hackett MD Onset: 08/28 Angina co-occurrent and due to coronary arteriosclerosis Tato Hackett MD Onset: 08/29/2019 Preoperative cardiovascular examination Vladimir Hackett MD Onset: 05/20/2020 Dietary management surveillance Vladimir Hackett MD Onset: 0 05/20/2020 Social History Type Date Description Comments Sex Unknown ETOH Use Does not consume alcohol Tobacco Use Start: Unknown Patient is a current smoker, smo kes every day pt has been smoking for about 40 years, smokes about 1/2ppd Smoking Status Reviewed: 05/20/20 Patient is a current smoker, smokes every day pt has been smoking for about 40 years, smokes about 1/2ppd Exercise Type/Frequency Does housework daily Exercise Type/Frequency Does yardwork sporadical ly mow and snow shovel deck as needed Exercise Limitations Other vascular is sues, neuropathy Exercise Limitations Back Pain Allergies, Adverse Reactions, Alerts Active Allergies Criticality Reaction | Severity Comments Date Codeine Unable to assess criticality n/v 11/29/2006 Adh-Adhesive Tape Unable to assess criticality rash 11/29/2006 Lipitor Unable to assess criticality unable to wa lk 11/29/2006 Medications Active Medications SIG Qnty Indications Ordering Provide r Date Amlodipine Besylate 10mg Tablets 1 by mouth every day Lauren Will PA 05/19/19 21 Lisinopril 40mg Tablets 1 by mouth every day Lauren Will PA 05/19/19 21 Metformin HCL 500mg Tablets 1 by mouth twice a day Unknown 07/10/2019 Ezetimibe 10mg Tablets 1 by mouth every day Unknown 07/10/2019 Admelog 100Unit/ML Solution inject as directed on sliding scale Unknown 2019 Venlafaxine HCL 37.5mg Tablets 1 by mouth every day Unknown 07/10/2019 Basaglar Kwikpen 100 Unit/ML Solution Pen-Inject inject as directed Unknown 0 Aspirin Ec 81mg Tablets DR 1 tab po daily Vladimir Hackett MD 07/13/2007 Immunizations Description No Information Available Vital Signs Date Vital Result Comment 05/20/2020 10:02am Weight 235.00 lb Height 65 inches 5'5" BMI (Body Mass Index) 39.1 kg/m2 Heart Rate 68 /min regular with occasio nal irregularity. Respiratory Rate 18 /min BP Systolic Sitting 127 mmHg large cuff, Ra BP Diastolic Sitting 68 mmHg large cuff, Ra BP Systolic Lying Down 123 mmHg BP Diastolic Lying Down 64 mmHg 08/29/2019 2:41pm Weight 231.00 lb Height 65 inches 5'5" BMI (Body Mass Index) 38.4 kg/m2 Heart Rate 66 /min regular Respiratory Rate 18 /min BP Systolic Sitting 112 mmHg large cuff, Ra BP Diastolic Sitting 66 mmHg large cuff, Ra BP Systolic Lying Down 106 mmHg BP Diastolic Lying Down 60 mmHg Results Test Acquired Date Facility Test Result H/L Range Note CBC without Differential 12/02/2020 [facility] - not inter faced (315)- - White Blood Count 9.3 5.0-10.0 Red Blood Count 5.35 4.00-5.40 Platelets 201 172-450 Hemoglobin 16.4 Hematocrit 49.6 CMP 12/02/2020 [facility] - not interfaced (315)- - Albumin Serum/Plasma 3.6 Alt - SGPT 21 Calcium Ser/Plasma Mass/Vol 8.9 Carbon Dioxide Ser/Plasm 30 Chloride Serum/Plasma 100 Alkaline Phosphatase 86 Potassium 4.5 Protein Total 6.9 Sodium 138 Ast - Sgot 11 BUN - Urea Nitrogen 21 Glucose 341 High 83-110 Creatinine For GFR 0.91 Laboratory test finding 12/02/2020 [facility] - not interf aced (315)- - NT Probnp QN Ser/Plas 432 Hemoglobin A1c 12/02/2020 [facility] - not interfaced (315)- - Hemoglobin A1c 10.4 Procedures Date Code Description Status 10/22/2020 12200 Holter Monitor MD Review And Rep ort Completed 10/22/2020 96549 Holter Hookup,Recording,Disconne ct Completed Medical Devices Description No Information Available Encounters Description No Information Available Assessments Date Code Description Provider 10/22/2020 I48.0 Paroxysmal atrial fibrillation H olter/Event/Telemetry Plan of Treatment Future Appointment(s):* 01/07/2021 1:30 pm - [facility] 05/20/2020 - Vladimir Hackett MD* I50.42 Chronic combined systolic (congestive) and diastolic (congestive) heart failure* Recommendations:* Stable effort dyspnea suspected to be related to her long-standing weight problem and smoking. Stable dependent edema with normal neck veins in keeping with venous insufficiency possibly aggravated by her calcium channel gene therapy. No other symptoms or signs of congestion. Have encouraged weight reducing dietary efforts along with smoking cessation. Will obtain follow-up blood work includi ng pro BNP level. Currently receiving lisinopril. With her current first- degree AV block is not a candidate for carvedilol. Remains off diuretic therapy at this time. * I48.0 Paroxysmal atrial fibrillation* Recommendations:* Has remained free of symptomatic arrhythmia. EKG shows sinus rhythm. In light of her pulse irregularity a 24-hour Holter monitor has been requested. Remains off negative chronotropic therapy in light of her first-degree AV block. No change has been advised to her current clopidogrel and aspirin combination therapy. Have encouraged continued avoiding of caffeinated beverages, alcohol, nicotine, o lrd-lhu-twxikmd decongestants etc. that would increase her risk for rhythm disturbance. Every pounds she loses will reduce her risk for recurrent atrial rhythm disturbance. * I44.0 Atrioventricular block, first degree* Recommendations:* As per assessment #2. We would continue to monitor this conduction disturbance. * I25.119 Atherosclerotic heart disease of [place] coronary artery with unspecified angina pectoris* Recommendations:* On her current level of activity, limited by dyspnea and claudication, not angina pectoris. Current EKG appearance is stable. Pharmacological stress heart scan earlier this year showed no sign of viable myocardium and ischemic jeopardy. Encouraged dietary measures as mentioned above. No change has been made to her current protective combination lisinopril, rosuvastatin, clopidogrel, and aspirin. Again emphasized the importance of smoking cessation to reduce her risk for coronary events. Requested to contact us promptly should she develop effort related chest, jaw, or arm discomforts. * I11.0 Hypertensive heart disease with heart failure* Recommendations:* Current blood pressure would be considered adequately controlled. Compensated. Dietary measures and follow-up chemistry as mentioned assessment #1. No change would be advised to her current amlodipine and lisinopril. * Z01.810 Encounter for preprocedural cardiovascular examination* Recommendations:* Based on her clinical appearance today and recent noninvasive cardiac testing, should be able to proceed with the planned right leg revascularization procedure with low risk of perioperative cardiac complication. With her history of obstructive sleep apnea, cautious monitoring of her respiratory status will be necessary. * Z71.3 Dietary counseling and surveillance* Recommendations:* Especially with her diabetes mellitus, should be following a low carbohydrate diet (avoiding bread, potatoes, pasta, rice, fruit, candy, desserts, and beer etc.) as these, along with low-level exercise, have been shown to be more effective in leading to weight loss. * All * Comments:* I will ensure that the aforementioned test findings are reported to you along with any further recommendations. Thank you for allowing me to participate in the care of your patient. Best regards. * Follow up:* Followup appointment with EKG in 3 months. We would be pleased to reassess the patient at any time. Functional Status Functional Condition Comment Date Status Independent with all ADL's Activ e Mental Status Description No Information Available Referrals Description No Information Available
--- OUTSIDE RECORDS SUMMARY | 2021-03-09 07:22 | CCD | Continuity of Care Document ---
Author Author Malinda EMERY MD Organization Unknown Address [address] [place] [address] Phone [phone] Care Team Providers Care Telecasting Technician Name Role Phone Lauren Will AUTM Vladimir Hackett M.D. AUTM [phone] AUTM Unavailable [facility] Records AUTM [phone] E Pre Op AUTM [phone] Problems Active Problems Provider Date Essential hypertension [...] lb BMI (Body Mass Index) 40.9 kg/m2 [place] Body Weight 125 lb Weight 111.586 kg BSA (Body Surface Area) 2.16 m2 09/21/2020 1:56pm BP Systolic 142 mmHg BP Diastolic 88 mmHg Height 65 inches 5'5" Weight 237.00 lb BMI (Body Mass Index) 39.4 kg/m2 [place] Body Weight 125 lb Weight 107.503 kg BSA (Body Surface Area) 2.13 m2 Results Test Acquired Date Facility Test Result H/L Range Note Wound Culture And Gram St 09/03/2020 [facility] [place] [address] [phone] Gram Stain (SEE NOTE) Normal 1 Wound [...] standards. Procedures Date Code Description Status 02/11/2021 29817 Office/Outpatient Established Lo w MDM 20-29 Min Completed Medical Devices Description No Information Available Encounters Type Date Location Provider Dx Diagnosis Office Visit 02/11/2021 3:15p [facility] Gastroenterology [facility] griffin Emery MD Z86.010 Personal history of colonic polyps Office Visit 09/21/2020 1:45p [facility] Surgery Practice [place] [address] [place] arteries of extrm w [place]t [place], bi legs Z95.828 Presence of other vascular i mplants and grafts F17.210 Nicotine dependence, cigaret aimee, uncomplicated Z48.812 Encntr for surgical aftcr fo llowing surgery on the circ sys Office Visit 09/10/2020 9:00a [facility] Surgery Practice [place] [address] [place] arteries of extrm w [place]t [place], bi legs Z95.828 Presence of other vascular i mplants and grafts F17.210 Nicotine dependence, cigaret aimee, uncomplicated Z48.812 Encntr for surgical aftcr fo llowing surgery on the circ sys Office Visit 09/07/2020 1:00p [facility] Practice [place] [address] [place] arteries of extrm w [place]t [place], bi legs Z95.828 Presence of other vascular i mplants and grafts F17.210 Nicotine dependence, cigaret aimee, uncomplicated Z48.812 Encntr for surgical aftcr fo llowing surgery on the circ sys Office Visit 09/03/2020 1:45p [facility] Practice [place] I[address] [place] arteries of extrm w [place]t [place], bi legs Z95.828 Presence of other vascular i mplants and grafts F17.210 Nicotine dependence, cigaret aimee, uncomplicated Z48.812 Encntr for surgical aftcr fo llowing surgery on the circ sys Office Visit 08/24/2020 9:00a [facility] Surgery Practice [place] I[address].213 [place] arteries of extrm w [place]t [place], bi legs Z95.828 Presence of other vascular i mplants and grafts I65.23 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 K63.5-POLYP OF COLON Created [facility], Gastroenterology [address] [place] [address], [address] [address] [phone] Matt Emery M.D. R19.5-OTHER FECAL ABNORMALITIES K63.5-PO LYP OF COLON Scheduled 10/05/2020 [facility], Gastroenterology [address] [place] [address], [address] [id number] [phone]
--- OUTSIDE RECORDS SUMMARY | 2021-03-09 07:22 | CCD ---
Author Author [facility] [employer] [facility] [employer] Organization [facility] [employer] Address Unknown Phone Unavailable Care Team Providers Care Field Spec Name Role Phone Lauren Will Unavailable PROBLEMS Type Condition ICD9-CM Code OEX19-IU Code Onset Dates Condition S tatus W/U Status Risk SNOMED Code Notes Problem Cervical cancer screening Z12.4 Active confirmed 870905395 Problem Breast cancer screening Z12.39 Active confirmed 814111815 Problem Type 2 diabetes mellitus with unspecified complications E11.8 Active confirmed 32177769 Problem Tobacco use Z72.0 Active confirmed 60588383 0 Problem Type 2 diabetes mellitus with other specified complication E11.69 Active confirmed 95108534 Problem Obesity, unspecified obesity severity, unspecified obe sity type E66.9 Active confirmed 460558084 Problem Closed compression fracture of thoracic vertebra, sequela S22.000S Active confirmed 508224622 Problem Nonproliferative retinopathy due to secondary diabetes E13.3299 Active confirmed 122532102 Problem Vitamin D deficiency E55.9 Active confirmed 55043625 Problem Nonproliferative diabetic retinopathy E11.3299 A ctive confirmed 368499757 Problem Mixed stress and urge urinary incontinence N39.46 Active confirmed 552916668 Problem 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 Active confirmed 472422109993559 Problem Macrocytosis D75.89 Active confirmed 2668038 00 Problem Other age-related cataract of both eyes H25.89 Acti ve confirmed Problem PAD (peripheral artery disease) I73.9 Active confi rmed 767380671 Problem Postmenopausal Z78.0 Active confirmed 82076 008 Problem Age-related nuclear cataract, right eye H25.11 Active confirmed 138541760846209 Problem Colon cancer screening Z12.11 Active confirmed 421185673 Problem Coronary artery disease invo lving [place] [facility] without angina pectoris, unspecified vessel or lesion type I25.10 Active confirmed 96000705 Problem Essential hypertension I10 Active confirmed 20752467 Problem BALWINDER (obstructive sleep apnea) G47.33 Active confirm ed 85924122 Problem Paroxysmal atrial fibrillation I48.0 Active confir med 270515816 Problem Mixed hyperlipidemia E78.2 Active confirmed 618213753 Problem Stage 3 severe COPD by GOLD classification J44.9 Active confirmed 275539371 ALLERGIES Allergen (clinical drug ingredient) Drug/Non Drug Allergy do cumented on EMR Reaction Allergy Type Onset Date Status atorvastatin Lipitor([facility] Code:[address]-28) legs cramp Drug Allergy Active ENCOUNTERS from 1960 to 2020-12-09 Encounter Location Date Provider Diagnosis [place] [id number] [facility] [phone] [place] [address] 11 Nov, 2020 Lauren Will IMMUNIZATIONS Vaccine Route Administration Date [...] Education Language: Question Answer Notes Languages spoken: [place] Sexual Hx: Question Answer Notes Had sex [...] Notes Start Da te End Date Status Admelog 100 UNIT/ML 10 units Subcutaneous sliding scale before meals Active Rosuvastatin Calcium 5 MG 1 tablet Orally Once a day 2020 Active FreeStyle Fabian 14 Day Sensor - 1 sensor topically 2 weeks for 3 0 Days Jul, Active BD Pen Needle Olga U/F 32G X 4 MM as directed _ before bedtime Active Depend Underwear Large - 1 diaper topically Daily for 30 days Nov, Active Zetia 10 MG 1 tablet Orally Once a day Active metFORMIN HCl ER 500 MG 2 tablet with meals Orally once daily fo r 30 duplicate Not-Taking One Touch Ultra 2 Lancet 1 lancet subcutaneously twic e daily, as needed for 30 day(s) Active Methocarbamol 500 MG 1 tablets Orally every 6 hrs for 30 Days Not-Taking OneTouch Verio - one application In Vitro _ for 30 day(s) Active amLODIPine Besylate 5 MG 1 tablet Orally Once a day Active BD Insulin Syringe 30G X 1/2" 0.5 ML as directed subcu taneously four times daily as needed DX: E11.9 for 30 Days Mar, Active Acetaminophen 500 MG 1 tablet as needed Orally every 8 hrs Active Clopidogrel Bisulfate 75 MG 1 tablet Orally Once a day Active HumuLIN N KwikPen 100 UNIT/ML use sliding scale given to pt. mddose of 40units Subcutaneous c pm, noon meals Ac tive [employer] Fabian [place] - 1 device to read sensor topically Daily for 999 days Jul, Active Gabapentin 100 MG 1 capsule Orally three times daily Active metFORMIN HCl ER 500 MG 2 tablet with meals Orally once daily Active One Touch Verio Kit 1 strip subcutaneously twice daily for 30 days Active Basaglar 100 UNIT/ML - Solution 35 units Subcutaneous before bedtime Active Lisinopril 40 MG 1 tablet Orally Once a day Active Aspirin Adult Low Dose 81 MG 1 tablet Orally Once a day Active Venlafaxine HCl ER 37.5 MG 1 capsule with food & c 150 mg venlafaxine Orally Once a day Active PROCEDURES No Information RESULTS No Results REASON FOR VISIT [facility] authroization MEDICAL (GENERAL) HISTORY Type Description Date Medical [...] diverticulosis, 1st degree int. hems. Dr. Winter [facility] path. serrated adenoma, tub. adenoma 2 [...] Cholecystectomy -Dr. Winter 2000 Surgical History Ovarian cystectomies-[facility] Surgical History Colonoscopy-2 tub. adens. -Dr. Winter f/u 32015 Surgical History Right Femoral Endarterectomy- and 07/2020 Hospitalization History Mild Pancreatitis, acalculus , T2DM, CP, [place] r/o c neg. cardiac enzymes 01/26/13-01/27/13 Hospitalization [...] MG 1 tablet Orally Once a day Zetia 10 MG 1 tablet Orally Once a day Clopidogrel Bisulfate 75 MG 1 tablet Orally Once a day Basaglar 100 UNIT/ML - Solution 35 units Subcutaneous before bed time Rosuvastatin Calcium 5 MG 1 tablet Orally Once a day Jul, Venlafaxine HCl ER 37.5 MG 1 capsule with food & c 150 mg venlafaxine Orally Once a day Acetaminophen 500 MG 1 tablet as needed Orally every 8 hrs Gabapentin 100 MG 1 capsule Orally three times daily HumuLIN N KwikPen 100 UNIT/ML use sliding scale given to pt. mddose of 40units Subcutaneous c pm, noon meals metFORMIN HCl ER 500 MG 2 tablet with meals Orally once daily Next Appt Details Provider Name:Aydin Stiles, 2021-01-25 0 9:45:00 AM, [address] [facility], , [place], [address], Insurance Providers Payer Name Payer Address Payer Phone Insured Name Patient Relati onship to Insured Coverage Start Date Coverage End Date [facility] [address] [facility] [id number] ELIJAH ESTRADA self
--- OUTSIDE RECORDS SUMMARY | 2021-03-09 07:23 | CCD ---
Author Author [facility] Organization [facility] Address Unknown Phone Unavailable Support Name Relationship Address Phone SEANKIANDANE Next Of Kin [address] [facility] [address] [place] [address] [facility] Next Of Kin [address] [place] [address] DISABLED Next Of Kin Unknown Unavailable JORGE LUIS ROSA(FRIEND) Next Of Kin [address] [place] [address] [facility]* [place] [address] JORGE LUIS SCHAFER Next Of Kin Unknown Catherine Dominguez DMD Next Of Kin [address] [place] [address] [employer] Next Of Kin Unknown NO, CONTACT Next Of Kin Unknown [place] [address] Unavailable UE Next Of Kin Unknown Unavailable [place] [address] JORGE LUIS PHELAN Next Of Kin [place], [place] JORGE LUIS ROSA Next Of Kin [address] [place] [address] [facility] Next Of Kin [address] [place] [address] Kaya ESTRADA Next Of Kin [address] [place] [address] DAYSI ESTRADA Next Of Kin [address] [facility] [address] [place], [place] [id number] JORGE LUIS ROSA ECON [address] [place] [address] [phone] Care Team Providers Care Dental Director Name Role Phone KELLEY MERAZ MD Unavailable Unavailable REINDL, KELLEY MANZANARES Unavailable Unavailable REINDL, KELLEY MANZANARES Unavailable Unavailable REINDL, KELLEY MANZANARES Unavailable Unavailable REINDL, KELLEY MANZANARES Unavailable Unavailable REINDL, KELLEY MANZANARES Unavailable Unavailable REINDL, KELLEY MANZANARES Unavailable Unavailable REINDL, KELLEY MANZANARES Unavailable Unavailable REINDL, KELLEY MANZANARES Unavailable Unavailable REINDL, KELLEY MANZANARES Unavailable Unavailable REINDL, KELLEY MANZANARES Unavailable Unavailable REINDL, KELLEY MANZANARES Unavailable Unavailable REINDL, KELLEY MANZANARES Unavailable Unavailable REINDL, KELLEY MANZANARES Unavailable Unavailable REINDL, KELLEY MANZANARES Unavailable Unavailable REINDL, KELLEY MANZANARES Unavailable Unavailable REINDL, KELLEY MANZANARES Unavailable Unavailable REINDL, KELLEY MANZANARES Unavailable Unavailable REINDL, KELLEY MANZANARES Unavailable Unavailable REINDL, KELLEY MANZANARES Unavailable Unavailable REINDL, KELLEY MANZANARES Unavailable Unavailable REINDL, KELLEY MANZANARES Unavailable Unavailable REINDL, KELLEY MANZANARES Unavailable Unavailable REINDL, KELLEY MANZANARES Unavailable Unavailable REINDL, KELLEY MANZANARES Unavailable Unavailable REINDL, KELLEY MANZANARES Unavailable Unavailable REINDL, KELLEY MANZANARES Unavailable Unavailable REINDL, KELLEY MANZANARES Unavailable Unavailable REINDL, KELLEY MANZANARES Unavailable Unavailable REINDL, KELLEY MANZANARES Unavailable Unavailable REINDL, KELLEY MANZANARES Unavailable Unavailable REINDL, KELLEY MANZANARES Unavailable Unavailable REINDL, KELLEY MANZANARES Unavailable Unavailable REINDL, KELLEY MANZANARES Unavailable Unavailable REINDL, KELLEY MANZANARES Unavailable Unavailable REINDL, KELLEY MANZANARES Unavailable Unavailable REINDL, KELLEY MANZANARES Unavailable Unavailable REINDL, KELLEY MANZANARES Unavailable Unavailable REINDL, KELLEY MANZANARES Unavailable Unavailable REINDL, KELLEY MANZANARES Unavailable Unavailable REINDL, KELLEY MANZANARES Unavailable Unavailable REINDL, KELLEY MANZANARES Unavailable Unavailable Ramone Lyles MD Unavailable Unavailable Ramone Lyles MD Unavailable Unavailable Ramone Lyles MD Unavailable Unavailable Ramone Lyles MD Unavailable Unavailable Ramone Lyles MD Unavailable Unavailable Ramone Lyles MD Unavailable Unavailable Ramone Lyles MD Unavailable Unavailable Ramone Lyles MD Unavailable Unavailable Ramone Lyles MD Unavailable Unavailable Ramone Lyles MD Unavailable Unavailable Ramone Lyles MD Unavailable Unavailable Ramone Lyles MD Unavailable Unavailable Ramone Lyles MD Unavailable Unavailable Ramone Lyles MD Unavailable Unavailable Ramone Lyles MD Unavailable Unavailable Ramone Lyles MD Unavailable Unavailable Ramone Lyles MD Unavailable Unavailable Ramone Lyles MD Unavailable Unavailable Ramone Lyles MD Unavailable Unavailable Ramone Lyles MD Unavailable Unavailable Ramone Lyles MD Unavailable Unavailable Ramone Lyles MD Unavailable Unavailable Bolnuria S Wilmer MANZANARES Unavailable Unavailable Bolla S Wilmer MD Unavailable Unavailable Bolla S Wilmer MANZANARES Unavailable Unavailable Bolla S Wilmer MANZANARES Unavailable Unavailable Bolnuria S Wilmer MANZANARES Unavailable Unavailable Bolla S Wilmer MANZANARES Unavailable Unavailable Bolla S Wilmer MD Unavailable Unavailable Bolla S Wilmer MD Unavailable Unavailable Bolla S Wilmer MANZANARES Unavailable Unavailable Bolla S Wilmer MANZANARES Unavailable Unavailable Bolla S Wilmer MD Unavailable Unavailable Bolla S Wilmer MANZANARES Unavailable Unavailable Bolla S Wilmer MD Unavailable Unavailable Bolla S Wilmer MANZANARES Unavailable Unavailable Bolla, S Wilmer MD Unavailable Unavailable Bolla S Wilmer MANZANARES Unavailable Unavailable Bolla S Wilmer MANZANARES Unavailable Unavailable Bolla, S Wilmer MANZANARES Unavailable Unavailable Bolla S Wilmer MD Unavailable Unavailable Bolnuria S Wilmer MD Unavailable Unavailable Bolla S Wilmer MANZANARES Unavailable Unavailable Bolnuria S Wilmer MANZANARES Unavailable Unavailable Bolnuria S Wilmer MANZANARES Unavailable Unavailable Bolnuria S Wilmer MANZANARES Unavailable Unavailable Bolla S Wilmer MD Unavailable Unavailable Bolla S Wilmer MANZANARES Unavailable Unavailable Bolla S Wilmer MD Unavailable Unavailable Koloms, Sveta MD Unavailable Unavailable Koloms, Sveta MD Unavailable Unavailable Koloms, Sveta MD Unavailable Unavailable Koloms, Sveta MD Unavailable Unavailable Koloms, Sveta MD Unavailable Unavailable Koloms, Sveta MD Unavailable Unavailable Koloms, Sveta MD Unavailable Unavailable Koloms, Sveta MD Unavailable Unavailable Koloms, Sveta MD Unavailable Unavailable Koloms, Sveta MD Unavailable Unavailable Koloms, Sveta MD Unavailable Unavailable Koloms, Sveta MD Unavailable Unavailable Koloms, Sveta MD Unavailable Unavailable Koloms, Sveta MD Unavailable Unavailable Koloms, Sveta MD Unavailable Unavailable Koloms, Sveta MD Unavailable Unavailable Koloms, Sveta MD Unavailable Unavailable Koloms, Sveta MD Unavailable Unavailable Koloms, Sveta MD Unavailable Unavailable Koloms, Sveta MD Unavailable Unavailable Koloms, Sveta MD Unavailable Unavailable Koloms, Sveta MD Unavailable Unavailable Koloms, Sveta MD Unavailable Unavailable Koloms, Sveta MD Unavailable Unavailable Koloms, Sveta MD Unavailable Unavailable Koloms, Sveta MD Unavailable Unavailable Koloms, Sveta MD Unavailable Unavailable Koloms, Sveta MD Unavailable Unavailable Koloms, Sveta MD Unavailable Unavailable Sveta Manuel MD Unavailable Unavailable Sveta Manuel MD Unavailable Unavailable Sveta Manuel MD Unavailable Unavailable DanielomsSveta MD Unavailable [facility]available [facility] Unavailable Unavailable Randy CAR MD Unavailable Unavailable CARRandy Ledesma MD Unavailable Unavailable CARRandy Ledesma MD Unavailable Unavailable Randy CAR MD Unavailable Unavailable Randy CAR MD Unavailable Unavailable CARRandy Ledemsa MD Unavailable Unavailable Randy CAR MD Unavailable Unavailable CARRandy Ledesma MD Unavailable Unavailable Randy CAR MD Unavailable Unavailable Randy CAR MD Unavailable Unavailable CARRandy Ledesma MD Unavailable Unavailable Randy CAR MD Unavailable Unavailable CARRandy Ledesma MD Unavailable Unavailable CARRandy Ledesma MD Unavailable Unavailable Randy CAR MD Unavailable Unavailable CARRandy Ledesma MD Unavailable Unavailable Randy CAR MD Unavailable Unavailable Randy CAR MD Unavailable Unavailable Randy CAR MD Unavailable Unavailable Randy CAR MD Unavailable Unavailable Randy CAR MD Unavailable Unavailable Randy CAR MD Unavailable Unavailable Randy CAR MD Unavailable Unavailable Randy CAR MD Unavailable Unavailable Randy CAR MD Unavailable Unavailable Randy CAR MD Unavailable Unavailable Randy CAR MD Unavailable Unavailable Randy CAR MD Unavailable Unavailable Randy CAR MD Unavailable Unavailable Randy CAR MD Unavailable Unavailable Randy CAR MD Unavailable Unavailable Randy CAR MD Unavailable Unavailable Randy CAR MD Unavailable Unavailable Randy CAR MD Unavailable Unavailable Randy CAR MD Unavailable Unavailable Randy ACR MD Unavailable Unavailable Randy CAR MD Unavailable Unavailable Randy CAR MD Unavailable Unavailable Randy CAR MD Unavailable Unavailable Randy CAR MD Unavailable Unavailable Randy CAR MD Unavailable Unavailable Randy CAR MD Unavailable Unavailable Randy CAR MD Unavailable Unavailable Randy CAR MD Unavailable Unavailable Randy CAR MD Unavailable Unavailable Randy CAR MD Unavailable Unavailable Randy CAR MD Unavailable Unavailable Randy CAR MD Unavailable Unavailable Randy CAR MD Unavailable Unavailable Randy CAR MD Unavailable Unavailable Randy CAR MD Unavailable Unavailable Randy CAR MD Unavailable Unavailable Randy CAR MD Unavailable Unavailable Randy CAR MD Unavailable Unavailable Ken Will PA Unavailable Unavailable Suman R Lauren PA Unavailable Unavailable Swatsworth, R Lauren PA Unavailable Unavailable Swatsworth, R Lauren PA Unavailable Unavailable Swatsworth, R Lauren PA Unavailable Unavailable Swatsworth, R Lauren PA Unavailable Unavailable Swatsworth, R Lauren PA Unavailable Unavailable Swatsworth, R Lauren PA Unavailable Unavailable Swatsworth, R Lauren PA Unavailable Unavailable Swatsworth, R Lauren PA Unavailable Unavailable Swatsworth, R Lauren PA Unavailable Unavailable Swatsworth, R Lauren PA Unavailable Unavailable Swatsworth, R Lauren PA Unavailable Unavailable Swatsworth, R Lauren PA Unavailable Unavailable Swatsworth, R Lauren PA Unavailable Unavailable Swatsworth, R Lauren PA Unavailable Unavailable Swatsworth, R Lauren PA Unavailable Unavailable Swatsworth, R Lauren PA Unavailable Unavailable Swatsworth, R Lauren PA Unavailable Unavailable Swatsworth, R Lauren PA Unavailable Unavailable Swatsworth, R Lauren PA Unavailable Unavailable Swatsworth, R Lauren PA Unavailable Unavailable Swatsworth, R Lauren PA Unavailable Unavailable Swatsworth, R Lauren PA Unavailable Unavailable Swatsworth, R Lauren PA Unavailable Unavailable Swatsworth, R Lauren PA Unavailable Unavailable Swatsworth, R Lauren PA Unavailable Unavailable Swatsworth, R Lauren PA Unavailable Unavailable Swatsworth, R Lauren PA Unavailable Unavailable Swatsworth, R Lauren PA Unavailable Unavailable Swatsworth, R Lauren PA Unavailable Unavailable Swatsworth, R Lauren PA Unavailable Unavailable Swatsworth, R Lauren PA Unavailable Unavailable Swatsworth, R Lauren PA Unavailable Unavailable Swatsworth, R Lauren PA Unavailable Unavailable Swatsworth, R Lauren PA Unavailable Unavailable Swatsworth, R Lauren PA Unavailable Unavailable Swatsworth, R Lauren PA Unavailable Unavailable Swatsworth, R Lauren PA Unavailable Unavailable Swatsworth, R Lauren PA Unavailable Unavailable Swatsworth, R Lauren PA Unavailable Unavailable Swatsworth, R Lauren PA Unavailable Unavailable Swatsworth, R Lauren PA Unavailable Unavailable Swatsworth, R Lauren PA Unavailable Unavailable Swatsworth, R Lauren PA Unavailable Unavailable Swatsworth, R Lauren PA Unavailable Unavailable Swatsworth, R Lauren PA Unavailable Unavailable Swatsworth, R Lauren PA Unavailable Unavailable Swatsworth, R Lauren PA Unavailable Unavailable KATHRYN, Ken JAMES DPM Unavailable Unavailable Ken PERALTA DPM Unavailable Unavailable KATHRYN, Ken JAMES DPM Unavailable Unavailable MAJAK, R JACOB DPM Unavailable Unavailable MAJAK, R JACOB DPM Unavailable Unavailable MAJAK, R JACOB DPM Unavailable Unavailable MAJAK, R JACOB DPM Unavailable Unavailable MAJAK, R JACOB DPM Unavailable Unavailable MAJAK, R JACOB DPM Unavailable Unavailable MAJAK, R JACOB DPM Unavailable Unavailable MAJAK, R JACOB DPM Unavailable Unavailable MAJAK, R JACOB DPM Unavailable Unavailable MAJAK, R JACOB DPM Unavailable Unavailable MAJAK, R JACOB DPM Unavailable Unavailable MAJAK, R JACOB DPM Unavailable Unavailable MAJAK, R JACOB DPM Unavailable Unavailable MAJAK, R JACOB DPM Unavailable Unavailable MAJAK, R JACOB DPM Unavailable Unavailable MAJAK, R JACOB DPM Unavailable Unavailable MAJAK, R JACOB DPM Unavailable Unavailable MAJAK, R JACOB DPM Unavailable Unavailable MAJAK, R JACOB DPM Unavailable Unavailable MAJAK, R JACOB DPM Unavailable Unavailable MAJAK, R JACOB DPM Unavailable Unavailable MAJAK, R JACOB DPM Unavailable Unavailable MAJAK, R JACOB DPM Unavailable Unavailable MAJAK, R JACOB DPM Unavailable Unavailable MAJAK, R JACOB DPM Unavailable Unavailable MAJAK, R JACOB DPM Unavailable Unavailable MAJAK, R JACOB DPM Unavailable Unavailable MAJAK, R JACOB DPM Unavailable Unavailable MAJAK, R JACOB DPM Unavailable Unavailable SYMENOW, G CHRISTOPHER PA Unavailable Unavailable SYMENOW, G CHRISTOPHER PA Unavailable Unavailable SYMENOW, G CHRISTOPHER PA Unavailable Unavailable SYMENOW, G CHRISTOPHER PA Unavailable Unavailable SYMENOW, G CHRISTOPHER PA Unavailable Unavailable SYMENOW, G CHRISTOPHER PA Unavailable Unavailable SYMENOW, G CHRISTOPHER PA Unavailable Unavailable SYMENOW, G CHRISTOPHER PA Unavailable Unavailable SYMENOW, G CHRISTOPHER PA Unavailable Unavailable SYMENOW, G CHRISTOPHER PA Unavailable Unavailable SYMENOW, G CHRISTOPHER PA Unavailable Unavailable SYMENOW, G CHRISTOPHER PA Unavailable Unavailable SYMENOW, G CHRISTOPHER PA Unavailable Unavailable SYMENOW, G CHRISTOPHER PA Unavailable Unavailable SYMENOW, G CHRISTOPHER PA Unavailable Unavailable SYMENOW, G CHRISTOPHER PA Unavailable Unavailable Olive Steiner MD Unavailable Unavailable Olive Steiner MD Unavailable Unavailable Cederstrand, Olive Ana MD Unavailable Unavailable Cederstrand, Olivejosh Perez MD Unavailable Unavailable Cederstrand, Olive Lyona MD Unavailable Unavailable Cederstrand, Olive Lyona MD Unavailable Unavailable Cederstrand, Olive Lyona MD Unavailable Unavailable Cederstrand, Olive Lyona MD Unavailable Unavailable Cederstrand, Olive Lyona MD Unavailable Unavailable Cederstrand, Olive Lyona MD Unavailable Unavailable Cederstrand, Olive Ana MD Unavailable Unavailable Cederstrand, Olive Ana MD Unavailable Unavailable Cederstrand, Olive Lyona MD Unavailable Unavailable Cederstrand, Olive Ana MD Unavailable Unavailable Cederstrand, Olive Ana MD Unavailable Unavailable Cederstrand, Olive Ana MD Unavailable Unavailable Swatsworth, R Lauren PA Unavailable Unavailable Swatsworth, R Lauren PA Unavailable Unavailable Swatsworth, R Lauren PA Unavailable Unavailable Swatsworth, R Lauren PA Unavailable Unavailable Swatsworth, R Lauren PA Unavailable Unavailable Swatsworth, R Lauren PA Unavailable Unavailable Swatsworth, R Lauren PA Unavailable Unavailable Swatsworth, R Lauren PA Unavailable Unavailable Swatsworth, R Lauren PA Unavailable Unavailable Swatsworth, R Lauren PA Unavailable Unavailable Swatsworth, R Lauren PA Unavailable Unavailable Swatsworth, R Lauren PA Unavailable Unavailable Swatsworth, R Lauren PA Unavailable Unavailable Swatsworth, R Lauren PA Unavailable Unavailable Swatsworth, R Lauren PA Unavailable Unavailable Swatsworth, R Lauren PA Unavailable Unavailable Swatsworth, R Lauren PA Unavailable Unavailable Swatsworth, R Lauren PA Unavailable Unavailable Swatsworth, R Lauren PA Unavailable Unavailable Swatsworth, R Lauren PA Unavailable Unavailable Swatsworth, R Lauren PA Unavailable Unavailable Swatsworth, R Lauren PA Unavailable Unavailable Swatsworth, R Lauren PA Unavailable Unavailable Swatsworth, R Lauren PA Unavailable Unavailable Swatsworth, R Lauren PA Unavailable Unavailable Swatsworth, R Lauren PA Unavailable Unavailable Swatsworth, R Lauren PA Unavailable Unavailable Swatsworth, R Lauren PA Unavailable Unavailable Swatsworth, R Lauren PA Unavailable Unavailable Swatsworth, R Lauren PA Unavailable Unavailable Swatsworth, R Lauren PA Unavailable Unavailable Swatsworth, R Lauren PA Unavailable Unavailable Swatsworth, R Lauren PA Unavailable Unavailable Swatsworth, R Lauren PA Unavailable Unavailable Swatsworth, R Lauren PA Unavailable Unavailable Swatsworth, R Lauren PA Unavailable Unavailable Swatsworth, R Lauren PA Unavailable Unavailable Swatsworth, R Lauren PA Unavailable Unavailable Swatsworth, R Lauren PA Unavailable Unavailable Swatsworth, R Lauren PA Unavailable Unavailable Swatsworth, R Lauren PA Unavailable Unavailable Swatsworth, R Lauren PA Unavailable Unavailable Swatsworth, R Lauren PA Unavailable Unavailable Swatsworth, R Lauren PA Unavailable Unavailable Swatsworth, R Lauren PA Unavailable Unavailable Swatsworth, R Lauren PA Unavailable Unavailable Swatsworth, R Lauren PA Unavailable Unavailable Swatsworth, R Lauren PA Unavailable Unavailable Swatsworth, R Lauren PA Unavailable Unavailable Potts, L Rayne RPA Unavailable Unavailable Potts, L Rayne RPA Unavailable Unavailable Potts, L Rayne RPA Unavailable Unavailable Potts, L Rayne RPA Unavailable Unavailable Potts, L Rayne RPA Unavailable Unavailable Ptots, L Rayne RPA Unavailable Unavailable Potts, L Rayne RPA Unavailable Unavailable Potts, L Rayne RPA Unavailable Unavailable Potts, L Rayne RPA Unavailable Unavailable Potts, L Rayne RPA Unavailable Unavailable Potts, L Rayne RPA Unavailable Unavailable Potts, L Rayne RPA Unavailable Unavailable Potts, L Rayne RPA Unavailable Unavailable Potts, L Rayne RPA Unavailable Unavailable Potts, L Rayne RPA Unavailable Unavailable Potts, L Rayne RPA Unavailable Unavailable Potts, L Rayne RPA Unavailable Unavailable Potts, L Rayne RPA Unavailable Unavailable Potts, L Rayne RPA Unavailable Unavailable Potts, L Rayne RPA Unavailable Unavailable Potts, L Rayne RPA Unavailable Unavailable Potts, L Rayne RPA Unavailable Unavailable Potts, L Rayne RPA Unavailable Unavailable Potts, L Rayne RPA Unavailable Unavailable Potts, L Rayne RPA Unavailable Unavailable Potts, L Rayne RPA Unavailable Unavailable Potts, L Rayne RPA Unavailable Unavailable Potts, L Rayne RPA Unavailable Unavailable Potts, L Rayne RPA Unavailable Unavailable Potts, L Rayne RPA Unavailable Unavailable Potts, L Rayne RPA Unavailable Unavailable Potts, L Rayne RPA Unavailable Unavailable Re-disclosure Warning The records that you are about to access may contain information from federally-assisted alcohol or drug abuse programs. If such information is present, then the following federally mandated warning applies: This information has been disclosed to you from records protected by federal confidentiality rules (42 CFR part 2). The federal rules prohibit you from making any further disclosure of this information unless further disclosure is expressly permitted by the written consent of the person to whom it pertains or as otherwise permitted by 42 CFR part 2. A general authorization for the release of medical or other information is NOT sufficient for this purpose. The Federal rules restrict any use of the information to criminally investigate or prosecute any alcohol or drug abuse patient.The records that you are about to access may contain highly sensitive health information, the redisclosure of which is protected by Article 27-F of the [facility] Public Health law. If you continue you may have access to information: Regarding HIV / AIDS; Provided by facilities licensed or operated by the [facility] Office of Mental Health; or Provided by the [facility] Office for People With Developmental Disabilities. If such information is present, then the following [facility] mandated warning applies: This information has been disclosed to you from confidential records which are protected by state law. State law prohibits you from making any further disclosure of this information without the specific written consent of the person to whom it pertains, or as otherwise permitted by law. Any unauthorized further disclosure in violation of state law may result in a fine or custodial sentence or both. A general authorization for the release of medical or other information is NOT sufficient authorization for further disc losure. Allergies and Adverse Reactions Type Description Substance Reaction Status Data Source(s ) No Known Environmental Allergies No Known Environmental Al lergies [facility] No Known Food Allergies No Known Food Allergies [facility] Propensity to adverse reactions LIPITOR LIPITOR [facility] Family History Family Member Name Family Member Gender Family Member Status Date o f Status Description Data Source(s) Unknown Unknown Problem [facility] Encounters Encounter Providers Location Date Indications Data Source(s ) Outpatient Attender: Sveta Manuel MDConsultant: Lauren SOFIA 02/14/2021 10:44:43 AM EDT - 02/16/2021 11:44:00 AM T [facility] Patient discharged. Outpatient Attender: Sveta Manuel MDConsultant: Lauren SOFIA 02/14/2021 10:43:36 AM EDT - 02/16/2021 02:00:00 PM EDT [facility] Patient discharged. Outpatient Attender: KELLEY Arnold/Cortez/Alessandro/Jesus bloom 02/11/2021 03:15:00 PM EDT MEDENT ([facility], ) Outpatient Attender: LEAH MAZARIEGOS PAConsultant: [id number] 01/04/2021 10:20:00 AM EDT [facility] Emergency Attender: LEAH MAZARIEGOS PAReferrer: Lauren SOFIA 01/04/2021 10:02:00 AM EDT - 01/04/2021 11:44:00 AM EDT [facility] Patient discharged. [place] [address] [facility] [address] 12/21/2020 12:00:00 AM EDT eCW1 ([facility]) [place] [address] [facility] [address] 12/17/2020 12:00:00 AM EDT eCW1 ([facility]) [place] [address] [facility] [address] 12/17/2020 12:00:00 AM EDT eCW1 ([facility]) [place] [address] [facility] [address] 12/17/2020 12:00:00 AM EDT eCW1 ([facility]) [place] [address] [facility] [address] 12/09/2020 12:00:00 AM EDT eCW1 ([facility]) Outpatient Attender: Sveta Manuel MDConsultant: Lauren SOFIA 12/05/2020 08:49:40 AM EDT - 12/11/2020 02:04:00 PM EDT [facility] Patient discharged. Outpatient Attender: Sveta Manuel MDConsultant: Lauren SOFIA 12/05/2020 08:46:49 AM EDT - 12/07/2020 02:28:00 PM EDT [facility] Patient discharged. [place] [address] [facility] [address] 12/03/2020 12:00:00 AM EDT [facility] ([facility]) [place] [address] [facility] [address] 12/02/2020 12:00:00 AM EDT [facility]1 ([facility]) [place] [address] [facility] [address] 12/02/2020 12:00:00 AM EDT eCW1 ([facility]) [place] [address] [facility] [address] 11/25/2020 12:00:00 AM EDT [facility] [place] [address] [facility] [address] 11/16/2020 12:00:00 AM EDT eCW1 ([facility]) [place] [address] [facility] [address] 11/16/2020 12:00:00 AM EDT eCW1 ([facility]) [place] [address] [facility] [address] 11/11/2020 12:00:00 AM EDT [facility]CW1 ([facility]) [place] [address] [facility] [address] 11/06/2020 12:00:00 AM EDT eCW1 ([facility]) [place] [address] [facility] [address] 09/23/2020 12:00:00 AM EDT eCW1 ([facility]) Office Visit Attender: Rayne Arnold/[place]/Alessandro/R eindl 09/21/2020 01:45:00 PM EDT [facility] ([facility]) Office Visit Attender: Rayne Arnold/[place]/Alessandro/R eindl 09/10/2020 09:00:00 AM EDT [facility] ([facility]) [place] [address] [facility] [address] 09/09/2020 12:00:00 AM EDT eCW1 ([facility]) Office Visit Attender: Raynejoseph Potts RPA Clayton/[place]/Alessandro/R eindl 09/07/2020 01:00:00 PM EDT [facility] ([facility]) Office Visit Attender: Rayne Mendozaramone LE [place]/Alessandro/R eindl 09/03/2020 01:45:00 PM EDT [facility] ([facility]) Unknown [address] [facility] [address] 08/27/2020 12:00:00 AM EDT eCW1 ([facility]) Office Visit Attender: Rayne Potts RPA [place]/Alessandro/R eindl 08/24/2020 09:00:00 AM EDT MEDENT ([facility]) Unknown [address] [facility] [address] 08/17/2020 12:00:00 AM EDT eCW1 ([facility]) Office Visit Attender: Rayne Potts MIMI [place]/Alessandro/R eindl 08/14/2020 09:00:00 AM EDT MEDENT ([facility] Unknown [address] [facility] [address] 07/31/2020 12:00:00 AM EDT eCW1 ([facility]) Unknown [address] [facility] [address] 07/30/2020 12:00:00 AM EDT eCW1 ([facility]) Unknown [address] [facility] [address] 07/29/2020 12:00:00 AM EDT eCW1 ([facility]) Unknown [address] [facility] [address] 07/29/2020 12:00:00 AM EDT eCW1 ([facility]) Outpatient [address] [facility] [address] 07/28/2020 12:00:00 AM EDT eCW1 ([facility]) Unknown [address] [facility] [place] [address] 06/17/2020 12:00:00 AM EST eCW1 ([facility]) Unknown [address] [facility] [place] [address] 06/15/2020 12:00:00 AM EST eCW1 ([facility]) Outpatient Attender: KELLEY Arnold/Cortez/Alessandro/Rein dl 06/09/2020 09:15:00 AM EST MEDENT ([facility]) Outpatient Attender: Ana Arnold/Cortez/Alessandro/ Calixto 05/28/2020 08:00:00 AM EST MEDENT ([facility]) OFFICE OUTPATIENT VISIT 40 MINUTES Attender: TALHA CAR MD, Mai n Office 05/20/2020 09:15:00 AM EST MEDENT ([facility]) Unknown [address] [facility] [place] [address] 05/06/2020 12:00:00 AM EST eCW1 ([facility]) Outpatient [address] [facility] [place] [address] 05/04/2020 12:00:00 AM EST eCW1 ([facility]) Unknown [address] [facility] [address] 04/17/2020 12:00:00 AM EST eCW1 ([facility]) Outpatient Attender: KELLEY Arnold/Cortez/Alessandro/Rein dl 04/14/2020 10:00:00 AM EST MEDENT ([facility]) Unknown [address] [facility] [place] [address] 04/01/2020 12:00:00 AM EST eCW1 ([facility]) Unknown [address] [facility] [place] [address] 03/31/2020 12:00:00 AM EST eCW1 ([facility]) Unknown [address] [facility] [place] [address] 03/27/2020 12:00:00 AM EST eCW1 [facility] Outpatient Attender: JACOB PERALTA [facility] Office 03/02 10:15:00 AM EST MEDENT ([facility] Outpatient Attender: Rayne Potts RPA [place]/Alessandro/R eindl 03/23/2020 12:00:00 PM EST MEDENT ([facility]) Outpatient Attender: JACOB PERALTA [facility] Office 03/01 02:00:00 PM EST MEDENT ([facility] Unknown [address] [facility] [place] [address] 03/04/2020 12:00:00 AM EST eCW1 ([facility]) Outpatient [address] [facility] [place] [address] 02/28/2020 12:00:00 AM EDT eCW1 ([facility]) Unknown [address] [facility] [place] [address] 02/28/2020 12:00:00 AM EDT eCW1 ([facility]) Unknown [address] [facility] [place] [address] 02/26/2020 12:00:00 AM EDT eCW1 ([facility]) Outpatient Attender: Rayne Garciaang/Concord/Alessandro/R eindl 02/11/2020 10:45:00 AM EDT MEDENT ([facility]) Unknown [address] [facility] [place] [address] 02/07/2020 12:00:00 AM EDT eCW1 ([facility]) Outpatient Attender: Rayne Potts RPA [place]/Alessandro/R eindl 01/21/2020 11:00:00 AM EDT MEDENT ([facility]) Wilmer Lyles MD: [id number] [address], [place] [address], Ph. Attender: Wilmer Lyles MD [place] - [facility] Office 01/17/2020 12:00:00 AM EDT TEJ ([facility]) [facility] [address] [facility] [address] 01/14/2020 12:00:00 AM EDT [facility] ([facility]) Wilmer Lyles MD: [id number] [facility] [address], [place] [address], Ph. [phone] Attender: Wilmer Lyles MD [facility] Office 01/13/2020 12:00:00 AM EDT TEJ ([facility]) Wilmer Lyles MD: [id number] [facility] [address], [place] [address], Ph. [phone] Attender: Wlimer Lyles MD [facility] Office 01/13/2020 12:00:00 AM EDT TEJ ([facility]) Medications Medication Brand Name Start Date Product Form Dose Route Admi nistrative Instructions Pharmacy Instructions Status Indications Reaction Description Data Source(s) POLYETHYLENE GLYCOL 3350 142 MG/ML Oral Solution [Miralax] iralax 02/11/2021 12:00:00 AM EDT active M EDENT ([facility], ) magnesium citrate 58.2 MG/ML Oral Solution Magnesium Citrate 02/11/2021 12:00:00 AM EDT active MEDENT ([facility], ) Clindamycin 300 MG Oral Capsule CLINDAMYCIN HCL 01/04/2021 12:00 :00 AM EDT capsule 40 TAKE ONE CAPSULE BY MOUTH FOUR T IMES A DAY TAKE ONE CAPSULE BY MOUTH FOUR TIMES A DAY SOLD: 01/04/2021 [facility] BD Ultra-fine Pen Decker 32G 4mm UNK 12/17/2020 12:00:00 AM EDT active BD Ultra-fine Pen Decker 32G 4m m [facility] ([facility]) BD Ultra-fine Pen Decker 32G 4mm UNK 12/17/2020 12:00:00 AM EDT active BD Ultra-fine Pen Decker 32G 4m m eCW1 ([facility]) BD Ultra-fine Pen Decker 32G 4mm UNK 12/17/2020 12:00:00 AM EDT active BD Ultra-fine Pen Decker 32G 4m m eCW1 ([facility]) BD Ultra-fine Pen Decker 32G 4mm UNK 12/17/2020 12:00:00 AM EDT active BD Ultra-fine Pen Decker 32G 4m m eCW1 ([facility]) Levofloxacin 500 MG Oral Tablet Levofloxacin 09/03/2020 12:00:00 AM E DT ORAL active MEDENT ([facility], ) Lactobacillus acidophilus [id number] UNT Oral Tablet Lactoba cillus 09/03/2020 12:00:00 AM EDT ORAL active M EDENT ([facility], ) doxycycline hyclate 100 MG Oral Capsule Doxycycline Hyclate 09/03/2020 12:00:00 AM EDT ORAL completed MEDENT ([facility], ) FreeStyle Fabian [place] - [facility] [facility] [place] - 08/27/2020 12:00: 00 AM EDT active FreeStyle Fabian [place] - eCW1 ([facility]) FreeStyle Fabian 14 Day Sensor - FreeStyle Fabian 14 Day Senso r - 08/27/2020 12:00:00 AM EDT active FreeStyl e Fabian 14 Day Sensor - eCW1 ([facility]) FreeStyle Fabian [place] - [employer]Style Fabian [place] - 08/27/2020 12:00: 00 AM EDT active FreeStyle Fabian [place] - eCW1 ([facility]) FreeStyle Fabian 14 Day Sensor - FreeStyle Fabian 14 Day Senso r - 08/27/2020 12:00:00 AM EDT active FreeStyl e Fabian 14 Day Sensor - eCW1 ([facility]) FreeStyle Fabian 14 Day Sensor - FreeStyle Fabian 14 Day Senso r - 08/27/2020 12:00:00 AM EDT active FreeStyl e Fabian 14 Day Sensor - eCW1 ([facility]) FreeStyle Fabian 14 Day Sensor - FreeStyle Fabian 14 Day Senso r - 08/27/2020 12:00:00 AM EDT active FreeStyl e Fabian 14 Day Sensor - eCW1 ([facility]) FreeStyle Fabian 14 Day Sensor - FreeStyle Fabian 14 Day Senso r - 08/27/2020 12:00:00 AM EDT active FreeStyl e Fabian 14 Day Sensor - eCW1 ([facility]) FreeStyle Fabian [place] - FreeStyle Fabian [place] - 08/27/2020 12:00: 00 AM EDT active FreeStyle Fabian [place] - eCW1 ([facility]) FreeStyle Fabian 14 Day Sensor - FreeStyle Fabian 14 Day Senso r - 08/27/2020 12:00:00 AM EDT active FreeStyl e Fabian 14 Day Sensor - eCW1 ([facility]) FreeStyle Fabian 14 Day Sensor - FreeStyle Fabian 14 Day Senso r - 08/27/2020 12:00:00 AM EDT active FreeStyl e Fabian 14 Day Sensor - eCW1 ([facility]) FreeStyle Fabian 14 Day Sensor - FreeStyle Fabian 14 Day Senso r - 08/27/2020 12:00:00 AM EDT active FreeStyl e Fabian 14 Day Sensor - eCW1 ([facility]) FreeStyle Fabian 14 Day Sensor - FreeStyle Fabian 14 Day Senso r - 08/27/2020 12:00:00 AM EDT active FreeStyl e Fabian 14 Day Sensor - eCW1 ([facility]) FreeStyle Fabian [place] - FreeStyle Fabian [place] - 08/27/2020 12:00: 00 AM EDT active FreeStyle Fabian [place] - eCW1 ([facility]) FreeStyle Fabian 14 Day Sensor - FreeStyle Fabian 14 Day Senso r - 08/27/2020 12:00:00 AM EDT active FreeStyl e Fabian 14 Day Sensor - eCW1 ([facility]) FreeStyle Fabian 14 Day Sensor - FreeStyle Fabian 14 Day Senso r - 08/27/2020 12:00:00 AM EDT active FreeStyl e Fabian 14 Day Sensor - eCW1 ([facility]) FreeStyle Fabian 14 Day Sensor - FreeStyle Fabian 14 Day Senso r - 08/27/2020 12:00:00 AM EDT active FreeStyl e Fabian 14 Day Sensor - eCW1 ([facility]) FreeStyle Fabian [place] - FreeStyle Fabian [place] - 08/27/2020 12:00: 00 AM EDT active FreeStyle Fabian [place] - eCW1 ([facility]) FreeStyle Fabian [place] - FreeStyle Fabian [place] - 08/27/2020 12:00: 00 AM EDT active FreeStyle Fabian [place] - eCW1 ([facility]) FreeStyle Fabian 14 Day Sensor - FreeStyle Fabian 14 Day Senso r - 08/27/2020 12:00:00 AM EDT active FreeStyl e Fabian 14 Day Sensor - eCW1 ([facility]) FreeStyle Fabian 14 Day Sensor - FreeStyle Fabian 14 Day Senso r - 08/27/2020 12:00:00 AM EDT active e CW1 ([facility]) FreeStyle Fabian [place] - FreeStyle Fabian [place] - 08/27/2020 12:00: 00 AM EDT active FreeStyle Fabian [place] - eCW1 ([facility]) FreeStyle Fabian [place] - FreeStyle Fabian [place] - 08/27/2020 12:00: 00 AM EDT active FreeStyle Fabian [place] - eCW1 ([facility]) FreeStyle Fabian [place] - FreeStyle Fabian [place] - 08/27/2020 12:00: 00 AM EDT active FreeStyle Fabian [place] - eCW1 ([facility]) FreeStyle Fabian [place] - FreeStyle Fabian [place] - 08/27/2020 12:00: 00 AM EDT active FreeStyle Fabian [place] - eCW1 ([facility]) FreeStyle Fabian [place] - FreeStyle Fabian [place] - 08/27/2020 12:00: 00 AM EDT active FreeStyle Fabian [place] - eCW1 ([facility]) FreeStyle Fabian [place] - FreeStyle Fabian [place] - 08/27/2020 12:00: 00 AM EDT active FreeStyle Fabian [place] - eCW1 ([facility]) FreeStyle Fabian 14 Day Sensor - FreeStyle Fabian 14 Day Senso r - 08/27/2020 12:00:00 AM EDT active FreeStyl e Fabian 14 Day Sensor - eCW1 ([facility]) FreeStyle Fabian [place] - FreeStyle Fabian [place] - 08/27/2020 12:00: 00 AM EDT active FreeStyle Fabian [place] - eCW1 ([facility]) FreeStyle Fabian [place] - FreeStyle Fabian [place] - 08/27/2020 12:00: 00 AM EDT active FreeStyle Fabian [place] - eCW1 ([facility]) FreeStyle Fabian [place] - FreeStyle Fabian [place] - 08/27/2020 12:00: 00 AM EDT active eCW1 ([facility]) FreeStyle Fabian 14 Day Sensor - FreeStyle Fabian 14 Day Senso r - 08/27/2020 12:00:00 AM EDT active FreeStyl e Fabian 14 Day Sensor - eCW1 ([facility]) FreeStyle Fabian [place] - FreeStyle Fabian [place] - 08/27/2020 12:00: 00 AM EDT active FreeStyle Fabian [place] - eCW1 ([facility]) Cephalexin 500 MG Oral Capsule Cephalexin 08/24/2020 12:00:00 AM EDT ORAL completed MEDENT ([facility] Rosuvastatin calcium 5 MG Oral Tablet Rosuvastatin Nestor cium 5 MG Rosuvastatin Calcium 5 MG 07/31/2020 12:00:00 AM EDT 1.0 {tablet} active Rosuvastatin Calcium 5 MG eCW1 ([facility]) Rosuvastatin calcium 5 MG Oral Tablet Rosuvastatin Nestor cium 5 MG Rosuvastatin Calcium 5 MG 07/31/2020 12:00:00 AM EDT 1.0 {tablet} active Rosuvastatin Calcium 5 MG eCW1 ([facility]) Rosuvastatin calcium 5 MG Oral Tablet Rosuvastatin Nestor cium 5 MG Rosuvastatin Calcium 5 MG 07/31/2020 12:00:00 AM EDT 1.0 {tablet} active Rosuvastatin Calcium 5 MG eCW1 ([facility]) Rosuvastatin calcium 5 MG Oral Tablet Rosuvastatin Nestor cium 5 MG Rosuvastatin Calcium 5 MG 07/31/2020 12:00:00 AM EDT 1.0 {tablet} active Rosuvastatin Calcium 5 MG eCW1 ([facility]) Rosuvastatin calcium 5 MG Oral Tablet Rosuvastatin Nestor cium 5 MG Rosuvastatin Calcium 5 MG 07/31/2020 12:00:00 AM EDT 1.0 {tablet} active Rosuvastatin Calcium 5 MG eCW1 ([facility]) Rosuvastatin calcium 5 MG Oral Tablet Rosuvastatin Nestor cium 5 MG Rosuvastatin Calcium 5 MG 07/31/2020 12:00:00 AM EDT 1.0 {tablet} act jessika eCW1 ([facility]) Rosuvastatin calcium 5 MG Oral Tablet Rosuvastatin Nestor cium 5 MG Rosuvastatin Calcium 5 MG 07/31/2020 12:00:00 AM EDT 1.0 {tablet} active Rosuvastatin Calcium 5 MG eCW1 ([facility]) Rosuvastatin calcium 5 MG Oral Tablet Rosuvastatin Nestor cium 5 MG Rosuvastatin Calcium 5 MG 07/31/2020 12:00:00 AM EDT 1.0 {tablet} active Rosuvastatin Calcium 5 MG eCW1 ([facility]) Rosuvastatin calcium 5 MG Oral Tablet Rosuvastatin Nestor cium 5 MG Rosuvastatin Calcium 5 MG 07/31/2020 12:00:00 AM EDT 1.0 {tablet} active Rosuvastatin Calcium 5 MG eCW1 ([facility]) Rosuvastatin calcium 5 MG Oral Tablet Rosuvastatin Nestor cium 5 MG Rosuvastatin Calcium 5 MG 07/31/2020 12:00:00 AM EDT 1.0 {tablet} active Rosuvastatin Calcium 5 MG eCW1 ([facility]) Rosuvastatin calcium 5 MG Oral Tablet Rosuvastatin Nestor cium 5 MG Rosuvastatin Calcium 5 MG 07/31/2020 12:00:00 AM EDT 1.0 {tablet} active Rosuvastatin Calcium 5 MG eCW1 ([facility]) Rosuvastatin calcium 5 MG Oral Tablet Rosuvastatin Nestor cium 5 MG Rosuvastatin Calcium 5 MG 07/31/2020 12:00:00 AM EDT 1.0 {tablet} active Rosuvastatin Calcium 5 MG eCW1 ([facility]) Rosuvastatin calcium 5 MG Oral Tablet Rosuvastatin Nestor cium 5 MG Rosuvastatin Calcium 5 MG 07/31/2020 12:00:00 AM EDT 1.0 {tablet} active Rosuvastatin Calcium 5 MG eCW1 ([facility]) Rosuvastatin calcium 5 MG Oral Tablet Rosuvastatin Nestor cium 5 MG Rosuvastatin Calcium 5 MG 07/31/2020 12:00:00 AM EDT 1.0 {tablet} active Rosuvastatin Calcium 5 MG eCW1 ([facility]) Rosuvastatin calcium 5 MG Oral Tablet Rosuvastatin Nestor cium 5 MG Rosuvastatin Calcium 5 MG 07/31/2020 12:00:00 AM EDT 1.0 {tablet} active Rosuvastatin Calcium 5 MG eCW1 ([facility]) Rosuvastatin calcium 5 MG Oral Tablet Rosuvastatin Nestor cium 5 MG Rosuvastatin Calcium 5 MG 07/31/2020 12:00:00 AM EDT 1.0 {tablet} active Rosuvastatin Calcium 5 MG eCW1 ([facility]) Rosuvastatin calcium 5 MG Oral Tablet Rosuvastatin Nestor cium 5 MG Rosuvastatin Calcium 5 MG 07/31/2020 12:00:00 AM EDT 1.0 {tablet} active Rosuvastatin Calcium 5 MG eCW1 ([facility]) Rosuvastatin calcium 5 MG Oral Tablet Rosuvastatin Nestor cium 5 MG Rosuvastatin Calcium 5 MG 07/31/2020 12:00:00 AM EDT 1.0 {tablet} active Rosuvastatin Calcium 5 MG eCW1 ([facility]) Cholestyramine Resin 66.7 MG/ML Oral Suspension Cholestyrami ne 06/09/2020 12:00:00 AM EST ORAL active M EDENT ([facility], ) Amlodipine 10 MG Oral Tablet Amlodipine Besylate 05/19/2020 12:00:00 AM EST ORAL active MEDENT ([facility] Lisinopril 40 MG Oral Tablet Lisinopril 05/19/2020 12:00:00 AM EST ORAL active MEDENT ([facility]) Loperamide Hydrochloride 2 MG Oral Tablet [Imodium] Imodium A-D 04/14/2020 12:00:00 AM EST ORAL completed MEDENT ([facility], ) ammonium lactate 120 MG/ML Topical Cream Ammonium Lactate 03/12/2020 12:00:00 AM EST active MEDENT ([facility] Bacitracin 0.5 UNT/MG / Neomycin 0.0035 MG/MG / Polymyxin B 10 UNT/MG / Pramoxine hydrochloride 0.01 MG/MG Topical Ointment Triple Antibiotic Plus 03/12/2020 12:00:00 AM EST active MEDENT ([facility] Triamcinolone Acetonide 1 MG/ML Topical Cream Triamcin olone Acetonide 0.1 % Triamcinolone Acetonide 0.1 % 03/05/2020 12:00:00 AM EST active Triamcinolone Acetonide 0.1 % eCW1 ([facility]) Triamcinolone Acetonide 1 MG/ML Topical Cream Triamcin olone Acetonide 0.1 % Triamcinolone Acetonide 0.1 % 03/05/2020 12:00:00 AM EST active Triamcinolone Acetonide 0.1 % eCW1 ([facility]) Triamcinolone Acetonide 1 MG/ML Topical Cream Triamcin olone Acetonide 0.1 % Triamcinolone Acetonide 0.1 % 03/05/2020 12:00:00 AM EST active Triamcinolone Acetonide 0.1 % eCW1 ([facility]) Triamcinolone Acetonide 1 MG/ML Topical Cream Triamcin olone Acetonide 0.1 % Triamcinolone Acetonide 0.1 % 03/05/2020 12:00:00 AM EST active Triamcinolone Acetonide 0.1 % eCW1 ([facility]) Triamcinolone Acetonide 1 MG/ML Topical Cream Triamcin olone Acetonide 0.1 % Triamcinolone Acetonide 0.1 % 03/05/2020 12:00:00 AM EST active Triamcinolone Acetonide 0.1 % eCW1 ([facility]) Triamcinolone Acetonide 1 MG/ML Topical Cream Triamcin olone Acetonide 0.1 % Triamcinolone Acetonide 0.1 % 03/05/2020 12:00:00 AM EST active Triamcinolone Acetonide 0.1 % eCW1 ([facility]) Ketoconazole 20 MG/ML Topical Cream Ketoconazole 2 % Ketocon azole 2 % 02/28/2020 12:00:00 AM EDT active Ketocon azole 2 % eCW1 ([facility]) Cephalexin 500 MG Oral Capsule [Keflex] Keflex 500 MG Keflex 500 MG 02/28/2020 12:00:00 AM EDT active Keflex 5 00 MG eCW1 ([facility]) Ketoconazole 20 MG/ML Topical Cream Ketoconazole 2 % Ketocon azole 2 % 02/28/2020 12:00:00 AM EDT active Ketocon azole 2 % eCW1 ([facility]) Cephalexin 500 MG Oral Capsule [Keflex] Keflex 500 MG Keflex 500 MG 02/28/2020 12:00:00 AM EDT active Keflex 5 00 MG eCW1 ([facility]) Ketoconazole 20 MG/ML Topical Cream Ketoconazole 2 % Ketocon azole 2 % 02/28/2020 12:00:00 AM EDT active Ketocon azole 2 % eCW1 ([facility]) Cephalexin 500 MG Oral Capsule [Keflex] Keflex 500 MG Keflex 500 MG 02/28/2020 12:00:00 AM EDT active Keflex 5 00 MG eCW1 ([facility]) Ketoconazole 20 MG/ML Topical Cream Ketoconazole 2 % Ketocon azole 2 % 02/28/2020 12:00:00 AM EDT active Ketocon azole 2 % eCW1 ([facility]) Cephalexin 500 MG Oral Capsule [Keflex] Keflex 500 MG Keflex 500 MG 02/28/2020 12:00:00 AM EDT active Keflex 5 00 MG eCW1 ([facility]) Ketoconazole 20 MG/ML Topical Cream Ketoconazole 2 % Ketocon azole 2 % 02/28/2020 12:00:00 AM EDT active Ketocon azole 2 % eCW1 ([facility]) Cephalexin 500 MG Oral Capsule [Keflex] Keflex 500 MG Keflex 500 MG 02/28/2020 12:00:00 AM EDT active Keflex 5 00 MG eCW1 ([facility]) Ketoconazole 20 MG/ML Topical Cream Ketoconazole 2 % Ketocon azole 2 % 02/28/2020 12:00:00 AM EDT active Ketocon azole 2 % eCW1 ([facility]) Cephalexin 500 MG Oral Capsule [Keflex] Keflex 500 MG Keflex 500 MG 02/28/2020 12:00:00 AM EDT active Keflex 5 00 MG eCW1 ([facility]) Ketoconazole 20 MG/ML Topical Cream Ketoconazole 2 % Ketocon azole 2 % 02/28/2020 12:00:00 AM EDT active Ketocon azole 2 % eCW1 ([facility]) Cephalexin 500 MG Oral Capsule [Keflex] Keflex 500 MG Keflex 500 MG 02/28/2020 12:00:00 AM EDT active Keflex 5 00 MG eCW1 ([facility]) Cephalexin 500 MG Oral Capsule [Keflex] Keflex 500 MG Keflex 500 MG 02/28/2020 12:00:00 AM EDT active Keflex 5 00 MG eCW1 ([facility]) Ketoconazole 20 MG/ML Topical Cream Ketoconazole 2 % Ketocon azole 2 % 02/28/2020 12:00:00 AM EDT active Ketocon azole 2 % eCW1 ([facility]) Insurance Providers Payer name Policy type / Coverage type Policy ID Covered constitution party ID Covered constitution party's relationship to farley Policy Farley Plan Information SELF PAY 2 [id number] MEDICAID [id number] [place] [id number] [facility] I [id number] Self [id number] MEDICAID [id number] UNHC COMMUNITY PLAN MCDO [id number] SP [id number] [facility](MCA[facility]) O [id number] S [id number] Managed Care - [facility] P [id number] S [id number] UNHC COMMUNITY PLAN MCDO [id number] SP [id number] ANSI-Medicaid [id number] ANSI-Not a Secondary Insurance [id number] ANSI-Medicaid [id number] ANSI-Not a Secondary Insurance [id number] ANSI-Not a Secondary Insurance [id number] ANSI-Medicaid [id number] ANSI-Medicaid [id number] ANSI-Not a Secondary Insurance [id number] ANSI-Not a Secondary Insurance [id number] ANSI-Medicaid [id number] ANSI-Medicaid [id number] ANSI-Not a Secondary Insurance [id number] ANSI-Not a Secondary Insurance [id number] ANSI-Medicaid [id number] ANSI-Not a Secondary Insurance [id number] ANSI-Medicaid [id number] ANSI-Not a Secondary Insurance [id number] ANSI-Medicaid [id number] ANSI-Not a Secondary Insurance [id number] ANSI-Medicaid [id number] [facility] ([facility]) [id number] [id number] Self [id number] ANSI-Medicaid [id number] ANSI-Not a Secondary Insurance [id number] ANSI-Not a Secondary Insurance [id number] ANSI-Medicaid [id number] ANSI-Medicaid [id number] ANSI-Not a Secondary Insurance [id number] ANSI-Medicaid [id number] ANSI-Not a Secondary Insurance [id number] ANSI-Not a Secondary Insurance [id number] ANSI-Medicaid [id number] ANSI-Medicaid [id number] ANSI-Not a Secondary Insurance [id number] ANSI-Medicaid [id number] ANSI-Not a Secondary Insurance [id number] [facility] [id number] ANSI-Medicaid [id number] ANSI-Not a Secondary Insurance [id number] ANSI-Not a Secondary Insurance [id number] ANSI-Medicaid [id number] ANSI-Not a Secondary Insurance [id number] ANSI-Medicaid [id number] ANSI-Medicaid [id number] ANSI-Not a Secondary Insurance [id number] [id number] ANSI-Medicaid [id number] ANSI-Not a Secondary Insurance [id number] ANSI-Not a Secondary Insurance [id number] ANSI-Medicaid [id number] ANSI-Not a Secondary Insurance [id number] ANSI-Medicaid [id number] ANSI-Not a Secondary Insurance [id number] ANSI-Medicaid [id number] ANSI-Medicaid [id number] ANSI-Not a Secondary Insurance [id number] ANSI-Not a Secondary Insurance [id number] ANSI-Medicaid [id number] ANSI-Medicaid [id number] ANSI-Not a Secondary Insurance [id number] ANSI-Not a Secondary Insurance [id number]-ec79-[id number] nqw3g3h [id number]-[id number] ANSI-Medicaid [id number] ANSI-Medicaid [id number] ANSI-Not a Secondary Insurance [id number] ANSI-Medicaid [id number] ANSI-Not a Secondary Insurance [id number] [id number] ANSI-Not a Secondary Insurance [id number]-ej9j-[id number] [id number]-07p3-77go-[id number] ANSI-Medicaid [id number] ANSI-Medicaid [id number] ANSI-Not a Secondary Insurance [id number] [id number] ANSI-Medicaid [id number] ANSI-Not a Secondary Insurance [id number]-[id number]-7ddo-0924-[id number] ANSI-Not a Secondary Insurance [id number] [id number]-[id number] ANSI-Medicaid [id number] ANSI-Medicaid [id number] ANSI-Not a Secondary Insurance [id number]-[id number] [id number] [id number] ANSI-Medicaid [id number] ANSI-Not a Secondary Insurance [id number]-86o4-2myu-3lrl2 [id number]-[id number] ANSI-Not a Secondary Insurance [id number] [id number] ANSI-Medicaid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 03/04/2020 08:39:00 AM EST [facility] ([facility]) Name Value Range Interpretation Code Description Data Gabriella rce(s) Supporting Document(s) Blood Urea Nitrogen 16 mg/dL 7-18 Normal (applies to non-nume lalito results) [facility] ([facility]) Glucose, Fasting 175 mg/dL 70-100 Above high normal M [facility] ([facility]) Creatinine For GFR 0.74 mg/dL 0.55-1.30 Normal (applies to non -numeric results) [facility] ([facility]) Glomerular Filtration Rate Laboratory test result Normal (applies to non- numeric results) [facility]) <content>Units are mL/min/1.73 m2</content>
<content></content>
<content>Chronic Kidney Disease Staging per NKF:</content>
<content></content>
<content>Stage I & II GFR >=60 Normal to Mildly Decreased</content>
<content>Stage III GFR 30- 59 Moderately Decreased</content>
<content>Stage IV GFR 15-29 Severely Decreased</content>
<content>Stage V GFR <15 Very Little GFR Left</content>
<content>ESRD GFR <15 on CONSTRUCTION SPECIALIST</content>
<content></content> Sodium Level 140 meq/L 136-145 Normal (applies to non-numeric res ults) [facility] ([facility]) Potassium Serum 4.3 meq/L 3.5-5.1 Normal (applies to non-numeric results) [facility]) Testing was performed on a SLIGHTLY hemo lyzed specimen. Suggest recollection of specimen for more accurate test results. Carbon Dioxide Level 33 meq/L 21-32 Above high normal [facility] ([facility]) Chloride Level 106 meq/L 98-107 Normal (applies to non-numeric r esults) [facility]) Anion Gap 1 meq/L 8-16 Below low normal [facility] ( [facility]) Calcium Level 9.1 mg/dL 8.8-10.2 Normal (applies to non-numeric re sults) [facility] ([facility]) ID Date Data Source [id number] 03/04/2020 08:39:00 AM EST [facility] Name Value Range Interpretation Code Description Data Gabriella rce(s) Supporting Document(s) Red Blood Count 5.02 10 4.00-5.40 Normal (applies to non-numeric results) [facility]) White Blood Count 8.5 10 4.0-10.0 Normal (applies to non-numeri c results) [facility] ([facility]) Hemoglobin 15.4 g/dL 12.0-15.5 Normal (applies to non-numeric resul ts) [facility] ([facility]) Hematocrit 49.5 % 36.0-47.0 Above high normal [facility] ([facility]) Mean Corpuscular Hemoglobin 30.7 pg 27.0-33.0 Norm al (applies to non-numeric results) [facility] ([facility]) Mean Corpuscular Volume 98.6 fl 80.0-96.0 Above high normal [facility] ([facility]) Mean Corpuscular HGB Conc 31.1 g/dL 32.0-36.5 Below low normal [facility] ([facility]) Platelet Count, Automated 206 10 150-450 Normal (applies to non-numeric results) [facility] ([facility]) Red Cell Distribution Width 12.7 % 11.5-14.5 Norm al (applies to non-numeric results) [facility] ([facility]) Nucleated Red Blood Cell % 0.0 % 0-0 Normal (applies to n on-numeric results) [facility] ([facility]) ID Date Data Source [id number] 01/13/2020 12:00:00 AM EDT [facility] ([facility]) Name Value Range Interpretation Code Description Data Gabriella rce(s) Supporting Document(s) ID Date Data Source [id number] 01/13/2020 12:00:00 AM EDT [facility] Name Value Range Interpretation Code Description Data Gabriella rce(s) Supporting Document(s) SARS-CoV-2 [facility] This lab was ordered by [employer] [facility] [place] and reported by [employer]. Procedure Social History Code Duration Value Status Description Data Source(s ) Smoking 12/02/2020 12:00:00 AM EDT Former Smoker completed Former Smoker eCW1 ([facility]) Smoking 12/02/2020 12:00:00 AM EDT Former Smoker completed Former Smoker eCW1 ([facility]) Smoking 12/02/2020 12:00:00 AM EDT Former Smoker completed Former Smoker eCW1 ([facility]) Smoking 12/02/2020 12:00:00 AM EDT Former Smoker completed Former Smoker eCW1 ([facility]) Smoking 12/02/2020 12:00:00 AM EDT Former Smoker completed Former Smoker eCW1 ([facility]) Smoking 12/02/2020 12:00:00 AM EDT Former Smoker completed Former Smoker eCW1 ([facility]) Smoking 12/02/2020 12:00:00 AM EDT Former Smoker completed Former Smoker eCW1 ([facility]) Smoking 12/02/2020 12:00:00 AM EDT Former Smoker completed Former Smoker eCW1 ([facility]) Smoking 12/02/2020 12:00:00 AM EDT Former Smoker completed Former Smoker eCW1 ([facility]) Smoking 09/09/2020 12:00:00 AM EDT Former Smoker completed Former Smoker eCW1 ([facility]) Smoking 09/09/2020 12:00:00 AM EDT Former Smoker completed Former Smoker eCW1 ([facility]) Smoking 09/09/2020 12:00:00 AM EDT Former Smoker completed Former Smoker eCW1 ([facility]) Smoking 09/09/2020 12:00:00 AM EDT Former Smoker completed Former Smoker eCW1 ([facility]) Smoking 09/09/2020 12:00:00 AM EDT Former Smoker completed Former Smoker eCW1 ([facility]) Smoking 09/09/2020 12:00:00 AM EDT Former Smoker completed Former Smoker eCW1 ([facility]) Smoking 07/28/2020 12:00:00 AM EDT Former Smoker completed Former Smoker eCW1 ([facility]) Smoking 07/28/2020 12:00:00 AM EDT Former Smoker completed Former Smoker eCW1 ([facility]) Smoking 07/28/2020 12:00:00 AM EDT Former Smoker completed Former Smoker eCW1 ([facility]) Smoking 07/28/2020 12:00:00 AM EDT Former Smoker completed Former Smoker eCW1 ([facility]) Smoking 07/28/2020 12:00:00 AM EDT Former Smoker completed Former Smoker eCW1 ([facility]) Smoking 07/28/2020 12:00:00 AM EDT Former Smoker completed Former Smoker eCW1 ([facility]) Smoking 07/28/2020 12:00:00 AM EDT Former Smoker completed Former Smoker eCW1 ([facility]) Smoking 05/06/2020 12:00:00 AM EST Current Smoker completed Curre nt Smoker eCW1 ([facility]) Smoking 05/06/2020 12:00:00 AM EST Current Smoker completed Curre nt Smoker eCW1 ([facility]) Smoking 05/06/2020 12:00:00 AM EST Current Smoker completed Curre nt Smoker eCW1 ([facility]) Smoking 05/06/2020 12:00:00 AM EST Current Smoker completed Curre nt Smoker eCW1 ([facility]) Smoking 02/28/2020 12:00:00 AM EDT Current Smoker completed Curre nt Smoker eCW1 ([facility]) Smoking 02/28/2020 12:00:00 AM EDT Current Smoker completed Curre nt Smoker eCW1 ([facility]) Smoking 02/28/2020 12:00:00 AM EDT Current Smoker completed Curre nt Smoker eCW1 ([facility]) Smoking 02/28/2020 12:00:00 AM EDT Current Smoker completed Curre nt Smoker eCW1 ([facility]) Smoking 02/28/2020 12:00:00 AM EDT Current Smoker completed Curre nt Smoker eCW1 ([facility]) Smoking 02/28/2020 12:00:00 AM EDT Current Smoker completed Curre nt Smoker eCW1 ([facility]) Smoking 02/28/2020 12:00:00 AM EDT Current Smoker completed Curre nt Smoker eCW1 ([facility]) Smoking 02/28/2020 12:00:00 AM EDT Current Smoker completed Curre nt Smoker eCW1 ([facility]) Vital Signs ID Date Data Source UNK Name Value Range Interpretation Code Description Data Source(s) Systolic blood pressure 158 mm[Hg] 158 mm[Hg] M [facility] ([facility]) Diastolic blood pressure 80 mm[Hg] 80 mm[Hg] [facility] ([facility]) Body height 65 [in_i] 65 [in_i] [facility] ([facility]) 5'5" Body weight 246.00 [lb_av] 246.00 [lb_av] [facility] Body mass index (BMI) [Ratio] 40.9 kg/m2 40.9 k g/m2 [facility] ([facility]) [place] body weight 125 [lb_av] 125 [lb_av] [facility] ([facility]) Body weight 111.586 kg 111.586 kg [facility] ([facility]) Body surface area Derived from formula 2.16 m2 2.16 m2 [facility] ([facility]) Body weight 237 [lb_av] 237 [lb_av] [facility] (On license of [facility]) Body height 65 [in_i] 65 [in_i] [facility] ([facility]) Body mass index (BMI) [Ratio] 39.43 kg/m2 39.43 kg/m2 [facility] ([facility]) Heart rate 117 /min 117 /min eCW1 ([facility]) Respiratory rate 18 /min 18 /min eCW1 ([facility]) Body temperature 96.3 [degF] 96.3 [degF] eCW1 ( [facility]) Systolic blood pressure 122 mm[Hg] 122 mm[Hg] e CW1 ([facility]) Diastolic blood pressure 80 mm[Hg] 80 mm[Hg] eCW1 ([facility]) Body weight 236 [lb_av] 236 [lb_av] eCW1 ([facility] of [facility]) Body height 65 [in_i] 65 [in_i] eCW1 ([facility]) Body mass index (BMI) [Ratio] 39.27 kg/m2 39.27 kg/m2 eCW1 ([facility]) Heart rate 115 /min 115 /min eCW1 ([facility]) Respiratory rate 18 /min 18 /min eCW1 ([facility]) Body temperature 97.1 [degF] 97.1 [degF] eCW1 ( [facility]) Systolic blood pressure 110 mm[Hg] 110 mm[Hg] e CW1 ([facility]) Diastolic blood pressure 70 mm[Hg] 70 mm[Hg] eCW1 ([facility]) Body height 65 [in_i] 65 [in_i] [facility] ([facility], ) 5'5" Body weight 237.00 [lb_av] 237.00 [lb_av] MEDEN T ([facility], ) Body mass index (BMI) [Ratio] 39.4 kg/m2 39.4 k g/m2 [facility] ([facility], ) [place] body weight 125 [lb_av] 125 [lb_av] MED[facility] T ([facility], ) Body weight 107.503 kg 107.503 kg [facility] ([facility], ) Body surface area Derived from formula 2.13 m2 2.13 m2 [facility] ([facility], ) Body surface area Derived from formula 2.13 m2 2.13 m2 [facility] ([facility], ) Systolic blood pressure 142 mm[Hg] 142 mm[Hg] M EDENT ([facility]) Diastolic blood pressure 88 mm[Hg] 88 mm[Hg] [facility] ([facility]) Body height 65 [in_i] 65 [in_i] [facility] ([facility]) 5'5" Body weight 237.00 [lb_av] 237.00 [lb_av] MEDEN T ([facility]) Body mass index (BMI) [Ratio] 39.4 kg/m2 39.4 k g/m2 [facility] ([facility]) [place] body weight 125 [lb_av] 125 [lb_av] MEDEN T ([facility]) Body weight 107.503 kg 107.503 kg [facility] ([facility]) Systolic blood pressure 120 mm[Hg] 120 mm[Hg] M [facility] ([facility]) Body weight 106.596 kg 106.596 kg [facility] ([facility]) Body height 65 [in_i] 65 [in_i] [facility] ([facility]) 5'5" Body weight 235.00 [lb_av] 235.00 [lb_av] MED[facility] T ([facility]) Body mass index (BMI) [Ratio] 39.1 kg/m2 39.1 k g/m2 [facility] ([facility]) [place] body weight 125 [lb_av] 125 [lb_av] MEDEN T ([facility]) Diastolic blood pressure 60 mm[Hg] 60 mm[Hg] [facility] ([facility]) Body surface area Derived from formula 2.12 m2 2.12 m2 [facility] ([facility]) Body weight 235 [lb_av] 235 [lb_av] eCW1 (On [facility] of [facility]) Body height 65 [in_i] 65 [in_i] eCW1 ([facility]) Body mass index (BMI) [Ratio] 39.10 kg/m2 39.10 kg/m2 W1 ([facility]) Heart rate 90 /min 90 /min eCW1 ([facility]) Respiratory rate 18 /min 18 /min eCW1 ([facility]) Body temperature 98 [degF] 98 [degF] eCW1 ([facility]) Systolic blood pressure 128 mm[Hg] 128 mm[Hg] e CW1 ([facility]) Diastolic blood pressure 66 mm[Hg] 66 mm[Hg] eCW1 ([facility]) Systolic blood pressure 110 mm[Hg] 110 mm[Hg] M EDENT ([facility]) Diastolic blood pressure 60 mm[Hg] 60 mm[Hg] [facility] ([facility]) Body weight 237.00 [lb_av] 237.00 [lb_av] MEDEN T ([facility]) Body mass index (BMI) [Ratio] 39.4 kg/m2 39.4 k g/m2 [facility] ([facility]) [place] body weight 125 [lb_av] 125 [lb_av] MEDEN T ([facility]) Body weight 107.503 kg 107.503 kg [facility] ([facility]) Body surface area Derived from formula 2.13 m2 2.13 m2 [facility] ([facility]) Body height 65 [in_i] 65 [in_i] [facility] ([facility]) 5'5" Systolic blood pressure 145 mm[Hg] 145 mm[Hg] [facility] Diastolic blood pressure 83 mm[Hg] 83 mm[Hg] [facility] ([facility]) Heart rate 116 /min 116 /min [facility] ([facility]) Body height 65 [in_i] 65 [in_i] [facility] ([facility]) 5'5" Body weight 237.12 [lb_av] 237.12 [lb_av] MEDEN T ([facility]) Body mass index (BMI) [Ratio] 39.5 kg/m2 39.5 k g/m2 [facility] ([facility]) [place] body weight 125 [lb_av] 125 [lb_av] MEDEN T ([facility]) Body weight 107.560 kg 107.560 kg [facility] ([facility]) Body surface area Derived from formula 2.13 m2 2.13 m2 [facility] ([facility]) Body weight 234.00 [lb_av] 234.00 [lb_av] MEDEN T ([facility]) Body mass index (BMI) [Ratio] 38.9 kg/m2 38.9 k g/m2 [facility] ([facility]) [place] body weight 125 [lb_av] 125 [lb_av] MEDEN T ([facility]) Body weight 106.142 kg 106.142 kg [facility] ([facility]) Body surface area Derived from formula 2.11 m2 2.11 m2 [facility] ([facility]) Systolic blood pressure 140 mm[Hg] 140 mm[Hg] [facility] Diastolic blood pressure 80 mm[Hg] 80 mm[Hg] [facility] ([facility]) Body height 65 [in_i] 65 [in_i] [facility] ([facility]) 5'5" Systolic blood pressure 137 mm[Hg] 137 mm[Hg] [facility] ([facility]) Diastolic blood pressure 81 mm[Hg] 81 mm[Hg] [facility] ([facility]) Heart rate 96 /min 96 /min [facility] ([facility]) Body height 65 [in_i] 65 [in_i] [facility] ([facility]) 5'5" Body mass index (BMI) [Ratio] 40.0 kg/m2 40.0 k g/m2 [facility] ([facility]) [place] body weight 125 [lb_av] 125 [lb_av] MEDEN T ([facility]) Body weight 109.034 kg 109.034 kg [facility] ([facility]) Body weight 240.38 [lb_av] 240.38 [lb_av] MEDEN T ([facility]) Body surface area Derived from formula 2.14 m2 2.14 m2 [facility] ([facility]) Body weight 244.4 [lb_av] 244.4 [lb_av] eCW1 ([facility] Body height 65 [in_i] 65 [in_i] eCW1 ([facility]) Body mass index (BMI) [Ratio] 40.67 kg/m2 40.67 kg/m2 eCW1 ([facility]) Heart rate 75 /min 75 /min eCW1 ([facility]) Respiratory rate 20 /min 20 /min eCW1 ([facility]) Body temperature 97.4 [degF] 97.4 [degF] eCW1 ( [facility]) Systolic blood pressure 138 mm[Hg] 138 mm[Hg] e CW1 ([facility]) Diastolic blood pressure 72 mm[Hg] 72 mm[Hg] eCW1 ([facility]) Body surface area Derived from formula 2.13 m2 2.13 m2 [facility] ([facility]) Body weight 107.957 kg 107.957 kg [facility] ([facility]) Systolic blood pressure 155 mm[Hg] 155 mm[Hg] M EDENT ([facility]) Diastolic blood pressure 72 mm[Hg] 72 mm[Hg] MEDENT ([facility]) Body height 65 [in_i] 65 [in_i] [facility] ([facility]) 5'5" Body weight 238.00 [lb_av] 238.00 [lb_av] MEDEN T ([facility]) Body mass index (BMI) [Ratio] 39.6 kg/m2 39.6 k g/m2 [facility] ([facility]) [place] body weight 125 [lb_av] 125 [lb_av] MEDEN T ([facility]) Body weight 234.38 [lb_av] 234.38 [lb_av] MEDEN T ([facility]) Body mass index (BMI) [Ratio] 39.0 kg/m2 39.0 k g/m2 [facility] ([facility]) [place] body weight 125 [lb_av] 125 [lb_av] MEDEN T ([facility]) Systolic blood pressure 120 mm[Hg] 120 mm[Hg] M EDENT ([facility]) Diastolic blood pressure 60 mm[Hg] 60 mm[Hg] [facility] ([facility]) Body height 65 [in_i] 65 [in_i] [facility] ([facility]) 5'5" Body weight 106.312 kg 106.312 kg [facility] ([facility]) Body surface area Derived from formula 2.12 m2 2.12 m2 [facility] ([facility]) Body weight 235.00 [lb_av] 235.00 [lb_av] MEDEN T ([facility]) Body height 65 [in_i] 65 [in_i] MEDENT ([facility] 5'5" Body mass index (BMI) [Ratio] 39.1 kg/m2 39.1 k g/m2 MEDENT ([facility]) Heart rate 68 /min 68 /min MEDENT ([facility]) regular with occasional irregularity. Respiratory rate 18 /min 18 /min MEDENT ( [facility]) Systolic blood pressure--sitting 127 mm[Hg] 127 mm[Hg] MEDENT ([facility]) large cuff, Ra Diastolic blood pressure--sitting 68 mm[Hg] 68 mm[Hg] MEDENT ([facility]) large cuff, Ra Systolic blood pressure--supine 123 mm[Hg] 123 mm[Hg] MEDENT ([facility]) Diastolic blood pressure--supine 64 mm[Hg] 64 mm[Hg] MEDENT ([facility]) Body weight 231 [lb_av] 231 [lb_av] eCW1 (On license of [facility]) Diastolic blood pressure 74 mm[Hg] 74 mm[Hg] eCW1 ([facility]) Body height 65 [in_i] 65 [in_i] eCW1 ([facility]) Body mass index (BMI) [Ratio] 38.44 kg/m2 38.44 kg/m2 eCW1 ([facility]) Heart rate 106 /min 106 /min eCW1 ([facility]) Respiratory rate 18 /min 18 /min eCW1 ([facility]) Body temperature 96.9 [degF] 96.9 [degF] eCW1 ( [facility]) Systolic blood pressure 120 mm[Hg] 120 mm[Hg] e CW1 ([facility]) Diastolic blood pressure 70 mm[Hg] 70 mm[Hg] MEDENT ([facility]) Systolic blood pressure 128 mm[Hg] 128 mm[Hg] [facility] Body height 65 [in_i] 65 [in_i] [facility] 5'5" Body weight 229.00 [lb_av] 229.00 [lb_av] MEDEN T ([facility]) Body mass index (BMI) [Ratio] 38.1 kg/m2 38.1 k g/m2 [facility] ([facility]) [place] body weight 125 [lb_av] 125 [lb_av] MEDEN T ([facility]) Body weight 103.874 kg 103.874 kg [facility] ([facility]) Body surface area Derived from formula 2.10 m2 2.10 m2 [facility] ([facility]) Body surface area Derived from formula 2.09 m2 2.09 m2 [facility] ([facility]) Systolic blood pressure 146 mm[Hg] 146 mm[Hg] [facility] Diastolic blood pressure 82 mm[Hg] 82 mm[Hg] [facility] ([facility]) Body height 65 [in_i] 65 [in_i] [facility] ([facility]) 5'5" Body weight 228.25 [lb_av] 228.25 [lb_av] MEDEN T ([facility]) Body mass index (BMI) [Ratio] 38.0 kg/m2 38.0 k g/m2 [facility] ([facility]) [place] body weight 125 [lb_av] 125 [lb_av] MEDEN T ([facility]) Body weight 103.534 kg 103.534 kg [facility] ([facility]) Body height 65 [in_i] 65 [in_i] MEDENT ([facility] 5'5" Heart rate 85 /min 85 /min MEDENT ([facility] Body mass index (BMI) [Ratio] 34.8 kg/m2 34.8 k g/m2 MEDENT ([facility] Body weight 209.00 [lb_av] 209.00 [lb_av] MEDEN T ([facility] Systolic blood pressure 118 mm[Hg] 118 mm[Hg] M EDENT ([facility] Diastolic blood pressure 78 mm[Hg] 78 mm[Hg] MEDENT ([facility] Body weight 209 [lb_av] 209 [lb_av] eCW1 (On license of [facility]) Body height 65 [in_i] 65 [in_i] eCW1 ([facility]) Body mass index (BMI) [Ratio] 34.78 kg/m2 34.78 kg/m2 W1 ([facility]) Heart rate 106 /min 106 /min eCW1 ([facility]) Respiratory rate 20 /min 20 /min W1 ([facility]) Body temperature 97.1 [degF] 97.1 [degF] eCW1 ( [facility]) Systolic blood pressure 122 mm[Hg] 122 mm[Hg] e CW1 ([facility]) Diastolic blood pressure 66 mm[Hg] 66 mm[Hg] eCW1 ([facility]) Body height 65 [in_i] 65 [in_i] MEDENT ([facility], ) 5'5" Systolic blood pressure 166 mm[Hg] 166 mm[Hg] M EDENT ([facility], ) Diastolic blood pressure 90 mm[Hg] 90 mm[Hg] MEDENT ([facility], ) Body weight 224.12 [lb_av] 224.12 [lb_av] MEDEN T ([facility]) Body mass index (BMI) [Ratio] 37.3 kg/m2 37.3 k g/m2 [facility] ([facility]) [place] body weight 125 [lb_av] 125 [lb_av] MEDEN T ([facility]) Body weight 101.663 kg 101.663 kg [facility] ([facility]) Body surface area Derived from formula 2.08 m2 2.08 m2 [facility] ([facility]) Body mass index (BMI) [Ratio] 36.3 kg/m2 36.3 k g/m2 [facility] ([facility]) Body weight 218.00 [lb_av] 218.00 [lb_av] MEDEN T ([facility]) Body weight 98.885 kg 98.885 kg [facility] ([facility]) Systolic blood pressure 141 mm[Hg] 141 mm[Hg] [facility] Diastolic blood pressure 85 mm[Hg] 85 mm[Hg] [facility] ([facility]) Body height 65 [in_i] 65 [in_i] [facility] ([facility]) 5'5" [place] body weight 125 [lb_av] 125 [lb_av] MEDEN T ([facility]) Patient Treatment Plan of Care Planned Activity Planned Date Details Description Data Source (s) BD Ultra-fine Pen Decker 32G 4mm 12/17/2020 12:00:00 AM EDT eCW1 ([facility]) BD Ultra-fine Pen Decker 32G 4mm 12/17/2020 12:00:00 AM EDT eCW1 ([facility]) BD Ultra-fine Pen Decker 32G 4mm 12/17/2020 12:00:00 AM EDT eCW1 ([facility]) BD Ultra-fine Pen Decker 32G 4mm 12/17/2020 12:00:00 AM EDT eCW1 ([facility]) FreeStyle Fabian 14 Day Sensor - 08/27/2020 12:00:00 AM EDT eCW1 ([facility]) FreeStyle Fabian [place] - 08/27/2020 12:00:00 AM EDT eCW1 ([facility]) Rosuvastatin calcium 5 MG Oral Tablet 07/31/2020 12:00:00 AM EDT eCW1 ([facility]) Rosuvastatin calcium 5 MG Oral Tablet 07/31/2020 12:00:00 AM EDT eCW1 ([facility]) Rosuvastatin calcium 5 MG Oral Tablet 07/31/2020 12:00:00 AM EDT eCW1 ([facility]) Rosuvastatin calcium 5 MG Oral Tablet 07/31/2020 12:00:00 AM EDT eCW1 ([facility]) Rosuvastatin calcium 5 MG Oral Tablet 07/31/2020 12:00:00 AM EDT eCW1 ([facility]) Rosuvastatin calcium 5 MG Oral Tablet 07/31/2020 12:00:00 AM EDT eCW1 ([facility]) Rosuvastatin calcium 5 MG Oral Tablet 07/31/2020 12:00:00 AM EDT eCW1 ([facility]) Rosuvastatin calcium 5 MG Oral Tablet 07/31/2020 12:00:00 AM EDT eCW1 ([facility]) Rosuvastatin calcium 5 MG Oral Tablet 07/31/2020 12:00:00 AM EDT eCW1 ([facility]) Rosuvastatin calcium 5 MG Oral Tablet 07/31/2020 12:00:00 AM EDT eCW1 ([facility]) Rosuvastatin calcium 5 MG Oral Tablet 07/31/2020 12:00:00 AM EDT eCW1 ([facility]) Rosuvastatin calcium 5 MG Oral Tablet 07/31/2020 12:00:00 AM EDT eCW1 ([facility]) Triamcinolone Acetonide 1 MG/ML Topical Cream 03/05/2020 12:00:00 A M EST eCW1 ([facility]) Triamcinolone Acetonide 1 MG/ML Topical Cream 03/05/2020 12:00:00 A M EST eCW1 ([facility]) Triamcinolone Acetonide 1 MG/ML Topical Cream 03/05/2020 12:00:00 A M EST eCW1 ([facility]) Triamcinolone Acetonide 1 MG/ML Topical Cream 03/05/2020 12:00:00 A M EST eCW1 ([facility]) Triamcinolone Acetonide 1 MG/ML Topical Cream 03/05/2020 12:00:00 A M EST eCW1 ([facility]) Triamcinolone Acetonide 1 MG/ML Topical Cream 03/05/2020 12:00:00 A M EST eCW1 ([facility]) Cephalexin 500 MG Oral Capsule [Keflex] 02/28/2020 12:00:00 AM EDT eCW1 ([facility]) Ketoconazole 20 MG/ML Topical Cream 02/28/2020 12:00:00 AM EDT eCW1 ([facility]) Cephalexin 500 MG Oral Capsule [Keflex] 02/28/2020 12:00:00 AM EDT eCW1 ([facility]) Ketoconazole 20 MG/ML Topical Cream 02/28/2020 12:00:00 AM EDT eCW1 ([facility]) Cephalexin 500 MG Oral Capsule [Keflex] 02/28/2020 12:00:00 AM EDT eCW1 ([facility]) Ketoconazole 20 MG/ML Topical Cream 02/28/2020 12:00:00 AM EDT eCW1 ([facility]) Cephalexin 500 MG Oral Capsule [Keflex] 02/28/2020 12:00:00 AM EDT eCW1 ([facility]) Ketoconazole 20 MG/ML Topical Cream 02/28/2020 12:00:00 AM EDT eCW1 ([facility]) Ketoconazole 20 MG/ML Topical Cream 02/28/2020 12:00:00 AM EDT eCW1 ([facility]) Cephalexin 500 MG Oral Capsule [Keflex] 02/28/2020 12:00:00 AM EDT eCW1 ([facility]) Ketoconazole 20 MG/ML Topical Cream 02/28/2020 12:00:00 AM EDT eCW1 ([facility]) Cephalexin 500 MG Oral Capsule [Keflex] 02/28/2020 12:00:00 AM EDT eCW1 ([facility]) Ketoconazole 20 MG/ML Topical Cream 02/28/2020 12:00:00 AM EDT eCW1 ([facility]) Cephalexin 500 MG Oral Capsule [Keflex] 02/28/2020 12:00:00 AM EDT eCW1 ([facility]) Ketoconazole 20 MG/ML Topical Cream 02/28/2020 12:00:00 AM EDT eCW1 ([facility]) Cephalexin 500 MG Oral Capsule [Keflex] 02/28/2020 12:00:00 AM EDT eCW1 ([facility])
[2021-03-09] MEDS ORDERED: propofoL 200 MG/20 ML VIAL As Ordered ONE ×2 (08:59→09:14)
--- NOTE | 2021-03-09 09:22 | ROOR ---
Patient Name: Malinda Parra Procedure Date: 03/09/2021 8:45 AM Date of : 1960 Age: 60 Room: [facility] Gender: Female Note Status: Finalized Procedure: Colonoscopy Indications: High risk colon cancer surveillance: Personal history of colonic polyps, Incidental diarrhea noted Providers: Matt De Luna MD Referring MD: Lauren ALEJANDRE Requesting Provider: Medicines: Monitored Anesthesia Care Complications: No immediate complications. Procedure: Pre-Anesthesia Assessment: - The heart rate, respiratory rate, oxygen saturations, blood pressure, adequacy of pulmonary ventilation, and response to care were monitored throughout the procedure. The Colonoscope was introduced through the anus and advanced to the cecum, identified by appendiceal orifice and ileocecal valve. The colonoscopy was somewhat difficult due to inadequate bowel prep. Successful completion of the procedure was aided by lavage. The patient tolerated the procedure well. The quality of the bowel preparation was unsatisfactory. Findings: The perianal and digital rectal examinations were normal. A 5 mm polyp was found in the sigmoid colon. The polyp was sessile. The polyp was removed with a cold snare. Resection and retrieval were complete. Multiple large-mouthed diverticula were found in the sigmoid colon. There was evidence of diverticular spasm. Small Internal Hemorrhoids. The exam was otherwise without abnormality on direct and retroflexion views. Biopsies for histology were taken with a cold forceps for evaluation of microscopic colitis. Impression: - Preparation of the colon was suboptimal/unsatisfactory. - One 5 mm polyp in the sigmoid colon, removed with a cold snare. Resected and retrieved. - Moderate diverticulosis in the sigmoid colon. There was evidence of diverticular spasm. - Small Internal Hemorrhoids. - The examination was otherwise normal on direct and retroflexion views. - Biopsies were taken with a cold forceps for evaluation of microscopic colitis. Recommendation: - Repeat colonoscopy in 2 years because the bowel preparation was poor. - Telephone endoscopist for pathology results in 2 weeks. - Resume Plavix (clopidogrel) at prior dose tomorrow. Procedure Code(s): --- Professional --- 79615, Colonoscopy, flexible; with removal of tumor(s), polyp(s), or other lesion(s) by snare technique 38237, 59, Colonoscopy, flexible; with biopsy, single or multiple Diagnosis Code(s): --- Professional --- K57.30, Diverticulosis of large intestine without perforation or abscess without bleeding K63.5, Polyp of colon Z86.010, Personal history of colonic polyps CPT copyright 2019 [employer]. All rights reserved. The codes documented in this report are preliminary and upon driller operator review may be revised to meet current compliance requirements. Matt De Luna MD Matt De Luna MD 03/09/2021 9:21:52 AM Electronically signed by Matt De Luna MD Number of Addenda: 0 Note Initiated On: 03/09/2021 8:45 AM Estimated Blood Loss: Estimated blood loss: none.
[2021-03-09 09:46] VITALS: BP 136/76
== END 2021-03-09 09:48 | disposition home or self-care (01) ==
LOC: M OPP 07:18
PROVIDERS: ATTEND Internal Medicine Gastroenterology
DX: K63.5 Polyp of colon (principal); K57.30 Diverticulosis of large intestine without perforation or abscess without bleeding; K64.0 First degree hemorrhoids; Z86.010 Personal history of colon polyps; I25.10 Atherosclerotic heart disease of native coronary artery without angina pectoris; E11.9 Type 2 diabetes mellitus without complications; I10 Essential (primary) hypertension; I25.2 Old myocardial infarction; Z88.8 Allergy status to other drugs, medicaments and biological substances; Z79.899 Other long term (current) drug therapy

== ENCOUNTER → 2021-05-31 | Outpatient (CLI) | payer OTHER ==
[~2021-05-31] MED LIST changes: -NS 1,000 ML IV ONE
== END ==
LOC: M WUC 14:15
PROVIDERS: ATTEND Physician Assistant Medical
DX: M47.812 Spondylosis without myelopathy or radiculopathy, cervical region (principal); M54.12 Radiculopathy, cervical region

== ENCOUNTER → 2021-06-07 | Outpatient (CLI) | payer MEDICARE, OTHER | LOC: M RAD 10:28 | PROVIDERS: ATTEND Physician Assistant Medical | DX: M50.223 Other cervical disc displacement at C6-C7 level (principal); M54.12 Radiculopathy, cervical region ==

== ENCOUNTER → 2021-10-31 | Outpatient (CLI) | payer MEDICARE, OTHER | LOC: M LABSMTC 10:07 | PROVIDERS: ATTEND Anesthesiology | DX: Z11.52 Encounter for screening for COVID-19 (principal); Z20.822 Contact with and (suspected) exposure to COVID-19 ==

== ENCOUNTER → 2021-11-03 | Outpatient (CLI) | payer MEDICARE, OTHER ==
[2021-11-03 13:26] LABS: BASO # 0.1 10^3/uL (0.0-0.2); BASO % 0.7 % (0.0-1.0); EOS # 0.2 10^3/uL (0.0-0.5); HEMATOCRIT 50.8 % (36.0-47.0); HEMOGLOBIN 16.9 g/dl (12.0-15.5); LYMPH # 2.2 10^3/uL (1.5-5.0); LYMPH % 25.3 % (24.0-44.0); MEAN CORPUSCULAR HEMOGLOBIN 31.5 pg (27.0-33.0); MEAN CORPUSCULAR HGB CONC 33.3 g/dl (32.0-36.5); MEAN CORPUSCULAR VOLUME 94.8 fl (80.0-96.0); MONO # 0.8 10^3/uL (0.0-0.8); MONO % 8.7 % (2.0-8.0); NEUTROPHILS # 5.5 10^3/uL (1.5-8.5); NEUTROPHILS % 62.6 % (36.0-66.0); PLATELET COUNT, AUTOMATED 215 10^3/uL (150-450); RED BLOOD COUNT 5.36 10^6/uL (4.00-5.40); WHITE BLOOD COUNT 8.7 10^3/uL (4.0-10.0)
[2021-11-03 13:47] LABS: INR 0.94
[2021-11-03 13:48] LABS: PARTIAL THROMBOPLASTIN TIME 28.6 SECONDS (25.9-37.0)
[2021-11-03 15:52] LABS: ALBUMIN 3.2 GM/DL (3.2-5.2); ALT/SGPT 14 U/L (12-78); BILIRUBIN,TOTAL 0.4 MG/DL (0.2-1.0); BLOOD UREA NITROGEN 14 MG/DL (7-18); CALCIUM LEVEL 8.6 MG/DL (8.8-10.2); CARBON DIOXIDE LEVEL 33 MEQ/L (21-32); CHLORIDE LEVEL 102 MEQ/L (98-107); FERRITIN 157 NG/ML (8-252); FREE T4 1.13 NG/DL (0.76-1.46); GLOMERULAR FILTRATION RATE > 60.0 (>45); GLUCOSE, FASTING 236 MG/DL (70-100); MAGNESIUM LEVEL 1.9 MG/DL (1.8-2.4); NT-PRO BNP 137 PG/ML (<125); POTASSIUM SERUM 4.7 MEQ/L (3.5-5.1); SODIUM LEVEL 136 MEQ/L (136-145); TOTAL PROTEIN 6.7 GM/DL (6.4-8.2)
[2021-11-03 16:33] LABS: HEMOGLOBIN A1c 9.2 %
== END ==
LOC: M PLALAB 09:57
PROVIDERS: ATTEND Family Medicine
DX: I10 Essential (primary) hypertension (principal)

== ENCOUNTER 2021-11-04 06:36 | Day surgery (SDC) | payer OTHER ==
[~2021-11-04] VITALS: Ht 165.1 cm; Wt 111.1 kg
[2021-11-04] MEDS ORDERED: MAXITROL OPHTH SUSP 5 ML As Ordered ONE (06:53)
[2021-11-04] MEDS ORDERED: LR 1,000 ML IV SCH (07:00)
[2021-11-04] MEDS: FLURBIPROFEN 0.03% OPHTH SOLN 2.5 ML OS SCH ×3 (07:03→07:25)
[2021-11-04] MEDS: PHENYLEPHRINE 2.5% OPHTH SOL 2ML OS SCH ×3 (07:03→07:25)
[2021-11-04] MEDS: CYCLOPENTOLATE 1% OPHTH SOLN 2 ML BTL OS SCH ×3 (07:03→07:25)
[2021-11-04] MEDS: TETRACAINE 0.5% OPHTH SOLN 4ML OS SCH ×2 (07:03→07:24)
[2021-11-04] MEDS ORDERED: INSULIN LISPRO (NovoLOG) PER UNIT SC PRN (07:15)
[2021-11-04] MEDS ORDERED: MIDAZOLAM INJ 2MG/2ML VIAL (J2250 PER 1MG) As Ordered ONE (07:16)
[2021-11-04] MEDS ORDERED: LIDOCAINE 1% SDV 5ML VIAL As Ordered ONE (07:19)
[2021-11-04] MEDS ORDERED: LABETALOL 100MG/20ML VIAL As Ordered ONE (08:35)
[2021-11-04 09:00] VITALS: BP 113/57
== END 2021-11-04 09:19 | disposition home or self-care (01) ==
LOC: M SDC 06:36
PROVIDERS: ATTEND Ophthalmology
DX: H25.12 Age-related nuclear cataract, left eye (principal); I11.0 Hypertensive heart disease with heart failure; I50.40 Unspecified combined systolic (congestive) and diastolic (congestive) heart failure; E11.40 Type 2 diabetes mellitus with diabetic neuropathy, unspecified; I25.2 Old myocardial infarction; I48.0 Paroxysmal atrial fibrillation; I44.0 Atrioventricular block, first degree; I25.10 Atherosclerotic heart disease of native coronary artery without angina pectoris; I27.20 Pulmonary hypertension, unspecified; E78.2 Mixed hyperlipidemia; I73.9 Peripheral vascular disease, unspecified; J44.9 Chronic obstructive pulmonary disease, unspecified; G47.33 Obstructive sleep apnea (adult) (pediatric); D75.89 Other specified diseases of blood and blood-forming organs; Z79.899 Other long term (current) drug therapy; Z79.02 Long term (current) use of antithrombotics/antiplatelets; Z79.4 Long term (current) use of insulin; Z79.84 Long term (current) use of oral hypoglycemic drugs; Z88.8 Allergy status to other drugs, medicaments and biological substances; Z88.5 Allergy status to narcotic agent; Z87.891 Personal history of nicotine dependence; Z87.19 Personal history of other diseases of the digestive system
CPT/HCPCS: 66984; J1815; J2250; V2632

== ENCOUNTER → 2021-12-13 | Outpatient (CLI) | payer OTHER ==
[~2021-12-13] MED LIST changes: +NYST-13 TOP; -NYST10CR TOP
== END ==
LOC: M LABSMTC 09:53
PROVIDERS: ATTEND Anesthesiology
DX: Z11.52 Encounter for screening for COVID-19 (principal)

== ENCOUNTER 2021-12-16 07:53 | Day surgery (SDC) | payer OTHER ==
[~2021-12-16] VITALS: Ht 165.1 cm; Wt 97.5 kg
[~2021-12-16 07:53] MED LIST changes: +LIDOCAINE 1% SDV 5ML VIAL As Ordered ONE; +LR 1,000 ML IV SCH; +MAXITROL OPHTH SUSP 5 ML As Ordered ONE
[2021-12-16] MEDS: TETRACAINE 0.5% OPHTH SOLN 4ML OD SCH ×2 (08:27→08:40)
[2021-12-16] MEDS: CYCLOPENTOLATE 1% OPHTH SOLN 2 ML BTL OD SCH ×3 (08:28→08:53)
[2021-12-16] MEDS: PHENYLEPHRINE 2.5% OPHTH SOL 2ML OD SCH ×3 (08:28→08:53)
[2021-12-16] MEDS: FLURBIPROFEN 0.03% OPHTH SOLN 2.5 ML OD SCH ×3 (08:28→08:53)
[2021-12-16] MEDS ORDERED: INSULIN LISPRO (NovoLOG) PER UNIT SC PRN (09:35)
[2021-12-16] MEDS ORDERED: MIDAZOLAM INJ 2MG/2ML VIAL (J2250 PER 1MG) As Ordered ONE (10:32)
[2021-12-16 10:50] VITALS: BP 138/74
== END 2021-12-16 11:16 | disposition home or self-care (01) ==
LOC: M SDC 07:53
PROVIDERS: ATTEND Ophthalmology
DX: H25.11 Age-related nuclear cataract, right eye (principal); I10 Essential (primary) hypertension; I25.10 Atherosclerotic heart disease of native coronary artery without angina pectoris; Z98.61 Coronary angioplasty status; I25.2 Old myocardial infarction; E78.5 Hyperlipidemia, unspecified; E11.9 Type 2 diabetes mellitus without complications; I73.9 Peripheral vascular disease, unspecified; J44.9 Chronic obstructive pulmonary disease, unspecified; F17.210 Nicotine dependence, cigarettes, uncomplicated; Z79.01 Long term (current) use of anticoagulants; Z79.82 Long term (current) use of aspirin; Z79.4 Long term (current) use of insulin; Z79.899 Other long term (current) drug therapy; Z88.5 Allergy status to narcotic agent; Z88.8 Allergy status to other drugs, medicaments and biological substances
CPT/HCPCS: 66984; J1815; J2250; V2632

== ENCOUNTER → 2022-03-21 | Outpatient (REF) | payer OTHER ==
[~2022-03-21] MED LIST changes: +CLOP75TA99 PO; -LIDOCAINE 1% SDV 5ML VIAL As Ordered ONE; -LR 1,000 ML IV SCH; -MAXITROL OPHTH SUSP 5 ML As Ordered ONE; -PLAV1TAB2 PO
== END ==
LOC: M SFHCPLAZ 15:45
PROVIDERS: ATTEND Physician Assistant Medical
DX: D75.89 Other specified diseases of blood and blood-forming organs (principal); E11.8 Type 2 diabetes mellitus with unspecified complications

== ENCOUNTER 2023-07-04 08:51 | Emergency (ER) | payer MEDICARE, OTHER, SELFPAY ==
[~2023-07-04] VITALS: Ht 165.1 cm; Wt 90.9 kg
[~2023-07-04 08:51] MED LIST changes: -GABA-283 PO; +GABA-284 PO
[2023-07-04 09:40] LABS: BASO % 0.3 % (0.0-1.0); EOS # 0.1 10^3/uL (0.0-0.5); EOS % 0.6 % (0.0-3.0); LYMPH # 1.5 10^3/uL (1.5-5.0); LYMPH % 14.3 % (24.0-44.0); MEAN CORPUSCULAR HEMOGLOBIN 31.5 pg (27.0-33.0); MEAN CORPUSCULAR VOLUME 92.8 fl (80.0-96.0); MONO # 0.9 10^3/uL (0.0-0.8); MONO % 8.8 % (2.0-8.0); NEUTROPHILS # 7.7 10^3/uL (1.5-8.5); NEUTROPHILS % 75.4 % (36.0-66.0); PLATELET COUNT, AUTOMATED 196 10^3/uL (150-450); RED BLOOD COUNT 5.39 10^6/uL (4.00-5.40); WHITE BLOOD COUNT 10.3 10^3/uL (4.0-10.0)
[2023-07-04 09:51] LABS: ERYTHROCYTE SEDIMENTATION RATE 31 mm/hr (0-30)
[2023-07-04 09:54] LABS: INR 1.07; PARTIAL THROMBOPLASTIN TIME 26.8 SECONDS (24.8-34.2); PROTHROMBIN TIME 13.6 SECONDS (12.5-14.5)
[2023-07-04 10:03] LABS: CK-MB VALUE MASS 12.7 NG/ML (<3.6)
[2023-07-04 10:07] LABS: ALBUMIN 3.3 G/DL (3.2-5.2); ALKALINE PHOSPHATASE 93 U/L (46-116); ALT/SGPT 20 U/L (7.0-40); AST/SGOT 53 U/L (<34); BILIRUBIN,DIRECT 0.3 MG/DL (<0.4); BLOOD UREA NITROGEN 20 MG/DL (9-23); CALCIUM LEVEL 8.4 MG/DL (8.3-10.6); CARBON DIOXIDE LEVEL 30 MMOL/L (20-31); CHLORIDE LEVEL 100 MMOL/L (98-107); CREATININE FOR GFR 0.67 MG/DL (0.55-1.30); GLOMERULAR FILTRATION RATE > 60.0 (>45); GLUCOSE, FASTING 310 MG/DL (74-106); POTASSIUM SERUM 4.2 MMOL/L (3.5-5.1); SODIUM LEVEL 136 MMOL/L (136-145); TOTAL PROTEIN 6.8 G/DL (5.7-8.2)
[2023-07-04 10:08] LABS: HEMOGLOBIN A1c 10.8 % (4.0-6.0)
[2023-07-04 10:09] LABS: VITAMIN B12 LEVEL 939 PG/ML (211-911)
[2023-07-04 10:13] LABS: PROCALCITONIN 0.11 ng/ml
[2023-07-04 10:36] LABS: CPK CREATINE PHOSPHOKINASE 1508 U/L (34-145); FOLATE 11.85 NG/ML (>5.4); MB/CK RELATIVE INDEX 0.84 (< OR =4)
[2023-07-04] MEDS: NS 1,000 ML IV ONE ×2 (10:52→17:35)
[2023-07-04 11:39] LABS: CK-MB VALUE MASS 13.6 NG/ML (<3.6)
[2023-07-04 11:51] LABS: MB/CK RELATIVE INDEX 0.73 (< OR =4)
[2023-07-04 21:42] VITALS: BP 148/70; TEMP 98.2; O2SAT 93
== END 2023-07-04 22:24 | disposition short-term general hospital (02) ==
LOC: EDBD 08:51 → M ED 08:51
DX: G83.4 Cauda equina syndrome (principal); G37.2 Central pontine myelinolysis; I63.9 Cerebral infarction, unspecified; G23.8 Other specified degenerative diseases of basal ganglia; M48.061 Spinal stenosis, lumbar region without neurogenic claudication; R91.1 Solitary pulmonary nodule; I25.10 Atherosclerotic heart disease of native coronary artery without angina pectoris; I25.2 Old myocardial infarction; I10 Essential (primary) hypertension; Z87.891 Personal history of nicotine dependence; Z79.02 Long term (current) use of antithrombotics/antiplatelets; Z79.4 Long term (current) use of insulin; Z79.82 Long term (current) use of aspirin; Z79.899 Other long term (current) drug therapy; Z88.5 Allergy status to narcotic agent; Z88.8 Allergy status to other drugs, medicaments and biological substances

== ENCOUNTER → 2023-08-09 | Outpatient (CLI) | payer MEDICARE, OTHER, SELFPAY ==
[2023-08-09 17:55] LABS: BASO # 0.1 10^3/uL (0.0-0.2); BASO % 0.5 % (0.0-1.0); EOS # 0.1 10^3/uL (0.0-0.5); EOS % 0.6 % (0.0-3.0); HEMATOCRIT 42.5 % (36.0-47.0); HEMOGLOBIN 13.8 g/dl (12.0-15.5); LYMPH # 2.2 10^3/uL (1.5-5.0); LYMPH % 16.4 % (24.0-44.0); MEAN CORPUSCULAR HGB CONC 32.5 g/dl (32.0-36.5); MEAN CORPUSCULAR VOLUME 92.4 fl (80.0-96.0); MONO # 1.3 10^3/uL (0.0-0.8); NEUTROPHILS # 9.5 10^3/uL (1.5-8.5); NEUTROPHILS % 71.6 % (36.0-66.0); PLATELET COUNT, AUTOMATED 388 10^3/uL (150-450); WHITE BLOOD COUNT 13.2 10^3/uL (4.0-10.0)
[2023-08-09 18:12] LABS: ERYTHROCYTE SEDIMENTATION RATE 80 mm/hr (0-30)
[2023-08-09 18:37] LABS: ALBUMIN 2.9 G/DL (3.2-5.2); ALKALINE PHOSPHATASE 98 U/L (46-116); ALT/SGPT 11 U/L (7.0-40); AST/SGOT 12 U/L (<34); BILIRUBIN,TOTAL 0.4 MG/DL (0.3-1.2); BLOOD UREA NITROGEN 6 MG/DL (9-23); CALCIUM LEVEL 8.8 MG/DL (8.3-10.6); CARBON DIOXIDE LEVEL 25 MMOL/L (20-31); CHLORIDE LEVEL 101 MMOL/L (98-107); CHOLESTEROL LEVEL 149 MG/DL (<200); CHOLESTEROL RISK RATIO 3.72 (<5); CREATININE FOR GFR 0.59 MG/DL (0.55-1.30); GLOMERULAR FILTRATION RATE > 60.0 (>45); GLUCOSE, FASTING 257 MG/DL (74-106); LDL CHOLESTEROL 82.8 MG/DL (<100); POTASSIUM SERUM 4.2 MMOL/L (3.5-5.1); SODIUM LEVEL 137 MMOL/L (136-145); TOTAL PROTEIN 6.8 G/DL (5.7-8.2); TRIGLYCERIDES LEVEL 131 MG/DL (<150)
[2023-08-09 18:58] LABS: HEMOGLOBIN A1c 9.1 % (4.0-6.0)
== END ==
LOC: M PLALAB 15:15
PROVIDERS: ATTEND Physician Assistant Medical
DX: E11.8 Type 2 diabetes mellitus with unspecified complications (principal); I10 Essential (primary) hypertension; E78.2 Mixed hyperlipidemia; Z98.890 Other specified postprocedural states